=== PATIENT | female | born 1950 | race Caucasian/White ===

== ENCOUNTER → 2020-05-18 13:42 | Outpatient (BNVA) | payer MEDICARE, SELFPAY | PROVIDERS: PCP Hospitalist; Referring Provider Hospitalist; Visit Provider Internal Medicine Cardiovascular Disease | DX: I25.10 Atherosclerotic heart disease of native coronary artery without angina pectoris (principal); I48.0 Paroxysmal atrial fibrillation; Z79.01 Long term (current) use of anticoagulants; Z79.899 Other long term (current) drug therapy | CPT/HCPCS: 93005; 99212 ==

== ENCOUNTER → 2021-05-21 13:19 | Outpatient (BNVA) | payer MEDICARE, SELFPAY | PROVIDERS: PCP Hospitalist; Referring Provider Hospitalist; Visit Provider Internal Medicine Cardiovascular Disease | DX: I48.0 Paroxysmal atrial fibrillation (principal); I25.10 Atherosclerotic heart disease of native coronary artery without angina pectoris | CPT/HCPCS: 93005; 99212 ==

== ENCOUNTER → 2022-05-21 12:16 | Outpatient (BNVA) | payer MEDICARE, SELFPAY | PROVIDERS: PCP Nurse Practitioner Family; Referring Provider Nurse Practitioner Family; Visit Provider Internal Medicine Cardiovascular Disease | DX: I48.0 Paroxysmal atrial fibrillation (principal); I25.10 Atherosclerotic heart disease of native coronary artery without angina pectoris; R00.1 Bradycardia, unspecified; Z79.01 Long term (current) use of anticoagulants; Z79.899 Other long term (current) drug therapy | CPT/HCPCS: 93005; 99212 ==

== ENCOUNTER → 2022-06-11 10:26 | Outpatient (REF) | payer MEDICARE, SELFPAY ==
--- NOTE | 2022-06-11 10:30 | HM_ITS ---
* Total monitoring time 3 days. * Underlying rhythm is sinus. Average ventricular rate 54/Min. Range 40 to 87/Min. About 74% the time, rate < 60/Min. * Occasional PVCs with minimal burden. Three short runs of NSVT noted. Longest 11 beats. Monomorphic. Cannot definitively exclude artifact. * Occasional PACs with a burden of less than 1%. Short runs noted. Longest 28 beats. * No significant pauses or AV blocks. * No patient diary or marker events. MTDD
== END ==
LOC: HO.CARD 10:26
PROVIDERS: PCP Nurse Practitioner Family; Visit Provider Internal Medicine Cardiovascular Disease
DX: R00.1 Bradycardia, unspecified (principal)
CPT/HCPCS: 93242

== ENCOUNTER → 2022-08-13 13:58 | Outpatient (BNVA) | payer MEDICARE, SELFPAY | PROVIDERS: PCP Nurse Practitioner Family; Referring Provider Nurse Practitioner Family; Visit Provider Nurse Practitioner Family | DX: I48.0 Paroxysmal atrial fibrillation (principal); R00.1 Bradycardia, unspecified; I25.10 Atherosclerotic heart disease of native coronary artery without angina pectoris; I10 Essential (primary) hypertension; E66.01 Morbid (severe) obesity due to excess calories; Z68.39 Body mass index [BMI] 39.0-39.9, adult; Z79.01 Long term (current) use of anticoagulants; Z79.899 Other long term (current) drug therapy | CPT/HCPCS: 93005; 99212 ==

== ENCOUNTER → 2022-12-24 10:19 | Outpatient (BNVA) | payer MEDICARE, SELFPAY | PROVIDERS: PCP Nurse Practitioner Family; Referring Provider Nurse Practitioner Family; Visit Provider Internal Medicine Cardiovascular Disease | DX: I48.0 Paroxysmal atrial fibrillation (principal); I25.10 Atherosclerotic heart disease of native coronary artery without angina pectoris; R00.1 Bradycardia, unspecified; Z79.01 Long term (current) use of anticoagulants; Z79.899 Other long term (current) drug therapy | CPT/HCPCS: 99212 ==

== ENCOUNTER → 2023-12-02 12:40 | Outpatient (REF) | payer MEDICARE, SELFPAY ==
--- NOTE | 2023-12-02 12:44 | HM_ITS ---
* Total monitoring time 5 days. * Underlying rhythm is sinus with an average rate of 54/Min. About 75% the time, rate less than 60/Min. * Occasional supraventricular ectopy. * Occasional ventricular ectopy with a burden of 1%. Rare couplets, evidence of bigeminy, trigeminy. * Tiredness, fatigue, shortness of breath in patient diary associated with sinus rhythm/supraventricular, ventricular ectopy. MTDD
--- NOTE | 2023-12-02 12:44 | CA_ITS ---
Transthoracic Echocardiogram Patient (Last, First, Middle): Ayse Corona M Gender: Female Date of : 1950 Age: 73 Procedure Date: 12/02/2023 Procedure Type: Transthoracic Echocardiogram Location: OP Height: 149.86 cm Weight: 91.63 kg BSA: 1.85 m2 Heart Rate: 46 bpm BP: 112 / 68 mmHg Assembler Flexible Leads: SB Referring MD: Leoncio Carpio MD Box Bender: Leoncio Carpio MD Symptoms: I48.0 - Paroxysmal atrial fibrillation Study Quality: Adequate ECG Rhythm: Bradycardia Conclusions: - 1. Normal LV ejection fraction of 60-65% with grade 2 diastolic dysfunction 2. Early mild aortic stenosis 3. Normal RV systolic pressure 4. No gross pericardial effusion Findings Left Ventricle Normal left ventricular size, thickness, and systolic function. The visually estimated ejection fraction is between 60-65%. Spectral Doppler is indicative of a pseudonormal filling pattern. E/E prime ratio is >15, consistent with elevated filling pressures. Evidence suggests grade II (moderate) diastolic dysfunction. Wall Motion Rest Echo Findings The basal inferoseptal segment is hypokinetic. Right Ventricle Normal right ventricular cavity size and systolic function. Atria Both atria are normal in size. There is no evidence of interatrial shunt. Aortic Valve There is mild calcification of the aortic valve. There is mild thickening of the aortic valve. There is mild aortic valve stenosis. The peak aortic gradient is 10 mmHg.The mean gradient is 6 mmHg. The aortic valve area is 1.63 cm2. There is no aortic valve regurgitation. Mitral Valve There is mild anterior and posterior mitral leaflet thickening. There is mild mitral annular calcification. There is mild mitral valve regurgitation. There is no mitral valve stenosis. Pulmonic Valve The pulmonic valve is likely normal. Tricuspid Valve Normal tricuspid valve structure. There is trace tricuspid valve regurgitation. The right ventricular systolic pressure is normal. The right ventricular systolic pressure is 21 mmHg. Normal right atrial pressure. There is no evidence of pulmonary hypertension. Great Vessels All visible segments of the aorta are normal in size. The pulmonary artery was not well visualized. There is no dilatation of the ascending aorta measuring 3.30 cm. Small plaque is seen in the ascending aorta. Venous The inferior vena cava is normal in size and collapses greater than 50% with inspiration. Pericardium/Pleural There is no evidence of pericardial effusion. Measurements M-Mode Liner Measurements Normals - Women/Men RVIDd: 2.84 0.9-2.6 cm 2D Linear Measurements IVSd: 0.52 0.6-0.9/0.6-1.0 cm LVIDd: 5.20 3.9-5.3/4.2-5.9 cm LVIDd Index: 2.81 2.4-3.2/2.2-3.1 cm/m2 LVIDs: 3.01 2.0-3.6 cm LVPWd: 0.70 0.7-1.1 cm Ao Root: 3.00 2.1-3.5 cm LA Diam: 3.20 2.7-3.8/3.0-4.0 cm LAIDs Index: 1.73 1.5-2.3 cm/m2 LV Mass: 128.70 67-162/88-224 g LV Mass Index: 69.57 43-95/49-115 g/m2 LVOT Diam: 1.80 3.0+(-)1.3 cm 2D Volumes LA ESV A/L: 23.60 22-52/18-58 ML/M2 RA ESV A/L: 12.90 19-21 ML/M2 2D Systolic Function EF 4C: 67.50 >55% EF 2C: 61.80 >55% EF BiP: 64.10 >55% Mitral Valve MV Pk Sloan: 1.00 MV Pk Grad: 4.00 MV Pk E: 1.03 MV PK A: 0.75 MV Decel Time: 238.00 E/A: 1.40 E'Lateral: 6.53 E'Medial: 5.66 E/E' Med: 18.20 E/E' Lat: 15.80 PHT: 70.00 MVA PHT: 3.14 Decel [place]: 4.35 Aortic Valve AoV Pk Sloan: 1.61 AoV Mn Sloan: 1.13 AoV VTI: 0.39 AoV Pk Grad: 10.00 Aov Mn Grad: 6.00 MIKE Cont.VTI: 1.63 MIKE: 1.70 LVOT LVOT Pk Sloan: 0.96 LVOT Mn Sloan: 0.62 LVOT VTI: 0.25 LVOT Pk Grad: 4.00 LVOT Mn Grad: 2.00 LVOT Diam: 1.80 LVOT Area: 2.54 Diastolic Function MV Pk E: 1.03 MV Pk A: 0.75 E/A: 1.40 E'Medial: 5.66 E/E' Med: 18.20 E' Laterial: 6.53 E/E' Lat: 15.80 Right Ventricle TAPSE (mm): 22.30 TVS' Sloan: 9.14 Tricuspid Valve TR Pk Sloan: 2.10 TR Pk Grad: 18.00 RA Press: 3.00 RVSP: 21.00 Great Vessels Aorta Ao Root-2D: 3.00 2.0-3.7 cm Sinus of Valsalva: 3.00 2.0-3.5 cm Ao Asc: 3.30 2.1-3.4 cm Pulmonary Veins Pulm Vein Pk S Sloan: 0.49 Pulm Vein Pk D Sloan: 0.50 Pulm Vein S/D 1.00 Pulmonary Valve PV Pk Sloan: 0.99 Peak PV Grad: 4.00 Updated in Other Vendor System with Status of Final Leoncio Carpio MD electronically signed on 12/03/2023 3:15:19 PM with status of Final
== END ==
LOC: HO.CARD 12:40
PROVIDERS: PCP Nurse Practitioner Family; Visit Provider Internal Medicine Cardiovascular Disease
DX: R00.1 Bradycardia, unspecified (principal); I48.0 Paroxysmal atrial fibrillation
CPT/HCPCS: 93242; 93306

== ENCOUNTER → 2023-12-02 12:44 | Outpatient (BNV) | payer MEDICARE, SELFPAY | PROVIDERS: PCP Nurse Practitioner Family; Visit Provider Internal Medicine Cardiovascular Disease | DX: I47.10 Supraventricular tachycardia, unspecified (principal) | CPT/HCPCS: 93244; 93306 ==

== ENCOUNTER 2024-02-17 14:33 | Outpatient (AMB) | payer MEDICARE, SELFPAY ==
--- NOTE | 2024-02-17 15:06 | MHC.OFFVIS ---
Vital Signs 02/17/24 15:07 Height 5 ft Weight 203 lb 11.314 oz BMI 39.8 BP 110/60 Blood Pressure Location Lt brachial Position Sitting Pulse 45 L Pulse Source Monitor Intake Visit Reasons: 1 yr f/up Intake Note: 1 yr f/up w ekg Life Consultant Required: No Accompanied by: Significant Other Allergies amoxicillin [From AUGMENTIN] Allergy (Unknown, Verified 08/13/22 14:34) HIVES Medication List - Last Reconciled 02/17/24 by Leoncio Carpio MD atorvastatin 80 mg PO DAILY cholecalciferol (vitamin D3) 50 mcg PO DAILY hydrochlorothiazide 25 mg PO DAILY levothyroxine 75 mcg PO DAILY metoprolol succinate ER 25 mg PO DAILY rivaroxaban (Xarelto) 20 mg PO DAILY HPI Comments Details: Ayes comes for follow-up, accompanied by her brother. She continues to have no cardiac symptoms. No prolonged irregular heartbeat or lightheadedness or syncope. She says she gets sometimes dizzy when she gets up suddenly but otherwise this passes. She denies any symptoms of significant fatigue although she says she has poor sleep pattern and does not sleep at night and feels tired when she wakes up in the morning. No exertional chest pain. No orthopnea, PND, leg edema. Takes all her medications including Xarelto. Getting a blood work done through a PCP, do not have a copy of the same. Will obtain the same. Recent Holter monitor shows frequent sinus bradycardia without any significant pauses. Echocardiogram shows normal LV ejection fraction with grade 2 diastolic dysfunction with early aortic stenosis. [facility] Medical History Paroxysmal atrial fibrillation CAD (coronary artery disease) HTN (hypertension) Morbid obesity Surgical History Hx of knee surgery Hx of thyroidectomy Hx of hysterectomy Hx of cardiac cath Family History Father No problems noted. Mother No problems noted. Social History Alcohol intake: current Alcohol intake frequency: holidays/special occasions only Patient Tobacco Use Status: Never used Tobacco Review of Systems Const Denies chills, Denies fatigue, Denies fever(s), Denies frequent falls, Denies weakness, Denies weight gain and Denies weight loss ENT Denies dizziness Card Denies chest pain, Denies leg edema, Denies lightheadedness, Denies palpitations, Denies dyspnea and Denies dyspnea on exertion Resp Denies cough, Denies dyspnea and Denies dyspnea on exertion GI Denies hematochezia Musc Denies abnormal gait, Denies muscle weakness, Denies numbness, Denies radiating pain into limb and Denies tingling Neuro Denies abnormal gait, Denies dizziness, Denies frequent falls, Denies numbness, Denies tingling and Denies weakness Endo Denies fatigue and Denies palpitations Physical Exam Vital Signs: Last Vital Signs Pulse 45 L 02/17/24 15:07 BP 110/60 02/17/24 15:07 BMI result Body Mass Index 39.8 Const General: cooperative, healthy appearing, comfortable and no acute distress Orientation/consciousness: patient oriented x3 Neck Neck: Yes normal visual inspection and Yes no JVD Resp Effort & Inspection: normal respiratory effort Auscultation: clear to auscultation bilaterally, no crackles, no rales, no rhonchi and no wheezes Cardio Jugular venous distension: no JVD Rate: regular rate Rhythm: regular rhythm Heart sounds: S1 normal heart sound present, S2 normal heart sound present, no gallops, no murmurs and no rubs Peripheral pulses: Peripheral pulses 2+ throughout GI Inspection: Yes normal to inspection Neuro General: patient oriented x3 Extrem General: Yes normal to inspection Psych Appearance: grossly normal Mental Status: mental status grossly normal Speech and movement: Normal speech and movement present Office Procedures EKG Details: EKG shows sinus bradycardia with sinus arrhythmia with isolated PVC [id number], Complete Assessment & Plan Assessment & Plan (1) CAD (coronary artery disease): Comment: nonobstructive by cardiac catheterization Code(s): I25.10 - Atherosclerotic heart disease of [place] coronary artery without angina pectoris Category: Medical Plan: CAD which is nonobstructive and no current symptoms. Continue aggressive risk factor modification. Currently on Xarelto and should continue that and avoid aspirin therapy to reduce bleeding risk. Continue high-intensity statin therapy. Target goal LDL less than 70 mg/dL. Blood pressure is well optimized. Continue current therapy. (2) Paroxysmal atrial fibrillation: Code(s): I48.0 - Paroxysmal atrial fibrillation Category: Medical Plan: Paroxysmal atrial fibrillation without any overt recurrence at this point time. Avoidance of stimulants was discussed. Stress mitigation strategies was discussed. Continue aggressive blood pressure control. Continue participate in aggressive weight loss program. Metoprolol will be continued although toes reduced, see below. Continue Xarelto 20 mg daily. Semi annual renal function test and annual CBC should be pursued. (3) Sinus bradycardia: Code(s): R00.1 - Bradycardia, unspecified Category: Medical Plan: Sinus bradycardia which is suggestive of underlying sinoatrial robinson dysfunction. At this point time no pacing therapy is recommended patient has no obvious symptoms. Her overall fatigue seems to be due to poor sleep. Improve this and she continues to have symptoms fatigue may consider stress testing to evaluate for chronotropic competence. Will reduce metoprolol to 12.5 mg daily. Avoid other rate lowering medications. Will follow up in the clinic in 1 year's time, sooner p.r.n.. Thank you for allowing me to partake in her care Medications: Changed From metoprolol succinate ER 25 mg PO DAILY 30 tabs 7RF To metoprolol succinate ER 12.5 mg (1/2 x 25 mg) PO DAILY 30 tabs 7RF Coding Level of Care Code Est Pt Level 4 (46007) Diagnoses CAD (coronary artery disease) I25.10 Paroxysmal atrial fibrillation I48.0 Sinus bradycardia R00.1 CPT Codes EKG - CPT: 23374-[id number], Complete ([id number])
[2024-02-17 15:07] VITALS: BP 110/60; PULSE 45; BMI 39.8
== END 2024-02-17 15:28 | disposition home or self-care (01) ==
PROVIDERS: PCP Nurse Practitioner Family; Visit Provider Internal Medicine Cardiovascular Disease
DX: I25.10 Atherosclerotic heart disease of native coronary artery without angina pectoris (principal); I48.0 Paroxysmal atrial fibrillation; R00.1 Bradycardia, unspecified
CPT/HCPCS: 93010; 99214

== ENCOUNTER → 2024-02-17 14:33 | Outpatient (BNVA) | payer MEDICARE, SELFPAY | PROVIDERS: PCP Nurse Practitioner Family; Visit Provider Internal Medicine Cardiovascular Disease | DX: I25.10 Atherosclerotic heart disease of native coronary artery without angina pectoris (principal); I48.0 Paroxysmal atrial fibrillation; R00.1 Bradycardia, unspecified | CPT/HCPCS: 93005; 99212 ==

== ENCOUNTER 2024-03-30 10:00 | Outpatient (AMB) | payer MEDICARE, SELFPAY ==
[2024-03-30 10:11] VITALS: BMI 39.6
--- NOTE | 2024-03-30 10:11 | MHC.OFFVIS ---
Vital Signs 03/30/24 10:11 Height 5 ft Weight 203 lb BMI 39.6 Intake Visit Reasons: OV- right shoulder RTC impingement Intake Note: Ayse is a 74 year old female who presents with complaints of progressively worsening right shoulder pain. The patient states that she aggravated her shoulder several months ago while pulling weeds in her garden. She reports difficulty lifting her right hand above shoulder height. She has tried Tylenol, anti-inflammatory medicines and tramadol which gave her minimal relief. The patient has difficulty sleeping because of her pain. She wishes to hold off on surgery if at all possible. Allergies amoxicillin [From AUGMENTIN] Allergy (Unknown, Verified 03/30/24 10:11) HIVES Medication List - Last Reconciled 03/30/24 by Bhaskar Castro MD atorvastatin 80 mg PO DAILY cholecalciferol (vitamin D3) 50 mcg PO DAILY hydrochlorothiazide 25 mg PO DAILY levothyroxine 75 mcg PO DAILY metoprolol succinate ER 12.5 mg (1/2 x 25 mg) PO DAILY rivaroxaban (Xarelto) 20 mg PO DAILY PFSH Medical History Paroxysmal atrial fibrillation CAD (coronary artery disease) HTN (hypertension) Morbid obesity Surgical History Hx of knee surgery Hx of thyroidectomy Hx of hysterectomy Hx of cardiac cath Family History Father No problems noted. Mother No problems noted. Social History Alcohol intake: current Alcohol intake frequency: holidays/special occasions only Patient Tobacco Use Status: Never used Tobacco Physical Exam Vital Signs: BMI result Body Mass Index 39.6 Const Other: Well-nourished well-developed very friendly female awake alert and oriented x3 in no acute distress Extrem Other: Bilateral upper extremity examination shows good capillary refill, no skin lesions noted, normal sensation light touch Right shoulder examination shows decreased range of motion when compared to her left shoulder, 3/5 strength with supraspinatus testing, positive impingement signs, no instability Office Procedures Joint Injection/Aspiration Joint Injection/Aspiration Primary Site: right shoulder Prep: site was prepped using aseptic technique Injected: 40 mg of, DepoMedrol and 1% plain lidocaine Procedure: The patient tolerated the procedure well Coding 52007 - Large joint Procedure code (CPT) selection complete Results Reviewed Results Reviewed: X-rays of the patient's right shoulder show severe acromioclavicular joint narrowing, a type 3 acromion, mild glenohumeral joint degenerative changes, no acute bony abnormalities Assessment & Plan Assessment & Plan (1) Right shoulder pain: Code(s): M25.511 - Pain in right shoulder Category: Medical Plan Ms. Corona presents with right shoulder pain and weakness due to impingement syndrome and possible rotator cuff tearing. I had a lengthy discussion with the patient regarding the treatment options. The risks and benefits of a right shoulder cortisone injection were discussed at length with the patient. The patient wished to proceed. She tolerated the injection well. She will continue with her home stretching program. She will contact me prior to her follow-up appointment in 3 months should any questions or concerns arise. Feel free to call me at any time should questions regarding her orthopedic management arise. I spent 20 minutes in reviewing the patient's records and imaging studies, seeing the patient and documenting in the medical record. Orders: Orders XR shoulder RT min 2V Today M25.511 - Pain in right shoulder AMB Joint Injection/Aspiration Today M25.511 - Pain in right shoulder Coding Level of Care Code New Pt Level 3 (15920) Complex EM visit Add On G2211 Diagnoses Right shoulder pain M25.511 CPT Codes Coding - 95803 Large joint: 08709 - Large joint ([id number])
== END 2024-03-30 10:38 | disposition home or self-care (01) ==
PROVIDERS: PCP Nurse Practitioner Family; Visit Provider Orthopaedic Surgery
DX: M25.511 Pain in right shoulder (principal)
CPT/HCPCS: 20610; 99203

== ENCOUNTER 2024-03-30 10:00 | Outpatient (REF) | payer MEDICARE, SELFPAY ==
--- NOTE | ~2024-03-30 | XR_ITS ---
EXAMINATION: XR SHOULDER, RIGHT CLINICAL INFORMATION: Pain in the right shoulder COMPARISON: None available. TECHNIQUE: AP external rotation, Grashey, scapular Y, and axillary views of the right shoulder. FINDINGS: Moderate to severe hypertrophic osteoarthritis of the acromioclavicular joint. Prominent subacromial spur. There is an ossification lateral to the acromion perhaps related to old deltoid/soft tissue trauma. Glenohumeral joint: Mild osteoarthritis. There is a calcification in the subacromial space Surrounding bone and soft tissues are unremarkable. XR/XR shoulder RT min 2V IMPRESSION: 1. Advanced osteoarthritis of the acromioclavicular joint with subacromial spur. 2. Calcification in the subacromial space compatible with calcific tendinosis or calcific tendinitis. 3. Mild glenohumeral joint arthrosis. Electronically signed by: Abad Jon MD 04/05/2024 03:13 PM EDT
== END 2024-03-30 10:01 | disposition home or self-care (01) ==
LOC: HO.HOSX 10:00
PROVIDERS: PCP Nurse Practitioner Family; Visit Provider Orthopaedic Surgery
DX: M25.511 Pain in right shoulder (principal); M75.41 Impingement syndrome of right shoulder
CPT/HCPCS: 20610; 73030; 99202; J1010

== ENCOUNTER 2024-07-01 10:11 | Outpatient (AMB) | payer MEDICARE, SELFPAY ==
--- NOTE | 2024-07-01 10:15 | A.OFFVIS_ITS ---
Intake Visit Reasons: Right shoulder pain Intake Note: Ayse is a 74 year old female who presents with complaints of progressively worsening right shoulder pain. She describes her pain as sharp in nature. Her pain has gotten somewhat worse over the last few months. She has had cortisone injections in the past which gave her fairly good relief. She has done physical therapy exercises which aggravated her pain. She has also tried Tylenol and anti-inflammatory medicines which gave her minimal relief. She wishes to hold off on surgery if at all possible. Allergies amoxicillin [From AUGMENTIN] Allergy (Unknown, Verified 07/01/24 10:20) HIVES Medication List - Last Reconciled 07/01/24 by Bhaskar Castro MD atorvastatin 80 mg PO DAILY cholecalciferol (vitamin D3) 50 mcg PO DAILY hydrochlorothiazide 25 mg PO DAILY levetiracetam 250 mg PO DAILY levothyroxine 75 mcg PO DAILY metoprolol succinate ER 12.5 mg (1/2 x 25 mg) PO DAILY rivaroxaban (Xarelto) 20 mg PO DAILY [facility] Medical History Paroxysmal atrial fibrillation CAD (coronary artery disease) HTN (hypertension) Morbid obesity Surgical History Hx of knee surgery Hx of thyroidectomy Hx of hysterectomy Hx of cardiac cath Family History Father No problems noted. Mother No problems noted. Social History Alcohol intake: current Alcohol intake frequency: holidays/special occasions only Patient Tobacco Use Status: Never used Tobacco Physical Exam Const Other: Well-nourished well-developed very friendly female awake alert and oriented x3 in no acute distress Extrem Other: Bilateral upper extremity examination shows good capillary refill, no skin lesions noted, normal sensation light touch Right shoulder examination shows slightly decreased range of motion when compared to her left shoulder, 4/5 strength with supraspinatus testing, positive impingement signs, no instability Office Procedures AMB Joint Injection/Aspiration Joint Injection/Aspiration Primary Site: right shoulder Prep: site was prepped using aseptic technique Injected: 40 mg of, DepoMedrol and 1% plain lidocaine Procedure: The patient tolerated the procedure well Coding 83645 - Large joint Procedure code (CPT) selection complete Assessment & Plan Assessment & Plan (1) Right shoulder pain: Code(s): M25.511 - Pain in right shoulder Category: Medical Plan Ayse presents with right shoulder pain due to impingement syndrome and possible rotator cuff tearing. The risks and benefits of a right shoulder cortisone injection were discussed at length with the patient. The patient wished to proceed. She tolerated the injection well. She will continue with her [id number] exercises to prevent stiffness. She will contact me prior to her follow-up appointment in 3 months should any questions or concerns arise. Feel free to call me at any time should questions regarding her orthopedic management arise. I spent 22 minutes in reviewing the patient's records and imaging studies, seeing the patient and documenting in the medical record. Orders: Orders AMB Joint Injection/Aspiration Today M25.511 - Pain in right shoulder Coding Level of Care Code Est Pt Level 3 (77979) Complex EM visit Add On G2211 Diagnoses Right shoulder pain M25.511 CPT Codes Coding - 21525 Large joint: 76545 - Large joint ([id number])
--- OUTSIDE RECORDS SUMMARY | 2024-07-01 10:27 | XMS_ITS | Patient Health Record ---
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 Name Role Phone Darius Duran MD Primary Care Provider Ronda Morel Unavailable [phone] Allergies Allergen (clinical drug ingredient) Drug/Non Drug Allergy documented on EMR Reaction Allergy Type Onset Date Status amoxicillin / clavulanate Augmentin Rapid Heart Rate Drug Allergy Active lisinopril Lisinopril Cough Drug Allergy Activ e Reason For Referral No Information Medications Medication SIG (Take, Route, Frequency, Duration) Notes Start Date End Date Status dexAMETHasone Not-Ta levon Propafenone HCl ER 225 MG Orally twice a day Unknown Ketorolac Tromethamine 0.5 % 1 drop into affected eye as needed Ophthalmic Four times a day Not-Taking Ciclopirox Olamine 0.77 % 1 application to affected area Externally Twice a day for 30 days Unknown Vitamin D2 Active Vitamin D3 125 MCG (5000 UT) as directed Orally Not-Taking Xarelto 20 MG 1 tablet with food Orally Once a day for 30 day(s) Active Levothyroxine Sodium 75 MCG 1 tablet in the morning on an empty stomach Orally Once a day for 30 day(s) Active Warfarin Sodium 5 MG Orally Not-Taking levETIRAcetam 250 MG as directed Orally once a day Active Vitamin D3 Not-Takin g Sinus & Allergy PRN Not- Taking Levoxyl 75 MCG 1 tablet in the morning on an empty stomach Orally Once a day for 30 day(s) Unknown Eliquis 5 MG as directed Orally Not-Taking Aspirin 81 MG Orally Unknow n Latanoprost 0.005 % 1 drop into affected eye in the evening Ophthalmic Once a day Not-Taking Metoprolol Tartrate 25 MG 1 tablet with food Orally Twice a day for 30 day(s) Active Albuterol Sulfate HFA 108 (90 Base) MCG/ACT 1 puff as needed Inhalation every 4 hrs Not-Taking hydroCHLOROthiazide 25 MG Orally Active Biotin Not-Taking Atorvastatin Calcium 80 MG 1 tablet Oral ly Once a day for 30 day(s) Active Ammonium Lactate 12 % 1 application to affected area Externally to feet Twice a day for 30 days Not-Taking Immunizations Vaccine Route Administration Date Status Comme nts COVID-19 Pfizer BioNTech Vaccine Unknown 10/28/2020 Administered First Dose: 10/28/20 Second Dose: 11/18/2020 Social History Tobacco Use: Social History Observation Description Date Details (start date - stop date) Never Smoker NA - NA Tobacco Use/Smoking Question Answer Notes Are you a: nonsmoker Additional Findings: Tobacco Non-User Current no n-smoker Alcohol Screen Question Answer Notes Did you have a drink contain ing alcohol in the past year? Yes How often did you have a dri nk containing alcohol in the past year? Monthly or less (1 point) Points 1 Interpretation Negative Tobacco use other than smoking: Question Answer Notes Are you an other tobacco user? No Problems Problem Type SNOMED Code ICD Code Onset Dates Problem Status W/U Status Risk Notes Problem Unspecified atherosclerosis of [place] arteries of extremities, bilateral legs (I70.203) Active confirmed Problem [id number] Atherosclerosi s of artery of both lower extremities (I70.203) Active confirmed Vital Signs Height 5ft in 05/18/2024 Weight 202 lbs 05/18/2024 BMI 39.45 kg/m2 05/18/2024 Encounters Encounter Location Date Provider Diagnosis [facility] [address] 08/08/2023 Ronda Perica Xerosis of skin L85. 3 ; Unspecified atherosclerosis of [place] arteries of extremities, bilateral legs I70.203 ; Tinea unguium B35.1 ; Pain in right toe(s) M79.674 and Pain in left toe(s) M79.675 [facility] [address] 11/19/2023 Ronda Perica Xerosis of skin L85. 3 ; Unspecified atherosclerosis of [place] arteries of extremities, bilateral legs I70.203 ; Tinea unguium B35.1 ; Pain in right toe(s) M79.674 and Pain in left toe(s) M79.[address] [address] 02/17/2024 Ronda Graf Unspecified atherosclerosis of [place] arteries of extremities, bilateral legs I70.203 ; Tinea unguium B35.1 ; Pain in right toe(s) M79.674 and Pain in left toe(s) M79.[address] [address] 05/18/2024 Ronda Shanksa Unspecified atherosclerosis of [place] arteries of extremities, bilateral legs I70.203 ; Tinea unguium B35.1 ; Pain in right toe(s) M79.674 and Pain in left toe(s) M79.675 Assessments Encounter Date Diagnosis (ICD Code) Assessment Notes Treatment Notes Treatment Clinical Notes Section Notes 08/08/2023 Xerosis of skin (ICD-10 - L85.3) 11/19/2023 Xerosis of skin (ICD-10 - L85.3) 02/17/2024 Tinea unguium (ICD-10 - B35.1) 02/17/2024 Unspecified atherosclerosis of [place] arteries of extremities, bilateral legs (ICD-10 - I70.203) 05/18/2024 Unspecified atherosclerosis of [place] arteries of extremities, bilateral legs (ICD-10 - I70.203) 11/19/2023 Unspecified atherosclerosis of [place] arteries of extremities, bilateral legs (ICD-10 - I70.203) 02/17/2024 Pain in right toe(s) (ICD-10 - M79.674) 05/18/2024 Tinea unguium (ICD-10 - B35.1) 08/08/2023 Unspecified atherosclerosis of [place] arteries of extremities, bilateral legs (ICD-10 - I70.203) 08/08/2023 Tinea unguium (ICD-10 - B35.1) 11/19/2023 Tinea unguium (ICD-10 - B35.1) 02/17/2024 Pain in left toe(s) (ICD-10 - M79.675) 05/18/2024 Pain in right toe(s) (ICD-10 - M79.674) 11/19/2023 Pain in right toe(s) (ICD-10 - M79.674) 05/18/2024 Pain in left toe(s) (ICD-10 - M79.675) 08/08/2023 Pain in right toe(s) (ICD-10 - M79.674) 08/08/2023 Pain in left toe(s) (ICD-10 - M79.675) 11/19/2023 Pain in left toe(s) (ICD-10 - M79.675) Plan Of Treatment Pending Test Test Name Order Date [id number] NAIL, 6 OR MORE 12/12/2017 [id number] NAIL, 6 OR MORE 03/06/2018 [id number] NAIL, 6 OR MORE 05/13/2018 [id number] SKIN LESIONS, OVER 4 12/13/19 18 [id number] SKIN LESIONS, OVER 4 05/13/20 18 [id number]-[id number] SKIN LESIONS, OVER 4 03/06/20 18 Insurance Providers Payer Name Payer Address Payer Phone Subscriber Number Group Number Insured Name Patient Relationship to Insured Coverage Start Date Coverage End Date [employer] [address] [facility] [place] [address] [id number] Ayse Young Self - patient is the insured Medical (General) History Medical History History ICD Code Back,Hip,and Knee pain Epilepsy Arthritis of Knee (right) chronic rhinitis Diverticulosis Reflux ( GERD) Glaucoma Hyperlipidemia Hypertension Hyperthyroidism Macular degeneration Sleep apnea Osteopenia Atrial fibrillation ([place]) Menopause Overactive bladder (OAB) Surgical History Surgery Date(Month/Year) left knee replacement 2010 thyroidectomy, complete 08/2014 colonoscopy 2013 sling, at bladder neck 10/24/2010 tonsillectomy cataract surgery 05/26/21, 06/09/21 Hospitalization History Reason Date(Month/Year) [facility]- Heart attack 01/2019 [facility] [place] and then after 2 day moved to [facility] te, Heart attack 01/2019 [facility] [place] [facility] - rectal bleeding/hemmoroid 9
--- OUTSIDE RECORDS SUMMARY | 2024-07-01 10:27 | XMS_ITS ---
Author Organization [facility] Guido micky [place] Address [address] [place] [address] Care Team Providers Care Soc Analyst Name Role Phone Darius Duran MD Primary Care Provider Ronda Morel Unavailable [phone] Allergies Allergen (clinical drug ingredient) Drug/Non Drug Allergy documented on EMR Reaction Allergy Type Onset Date Status amoxicillin / clavulanate Augmentin Rapid Heart Rate Drug Allergy Active lisinopril Lisinopril Cough Drug Allergy Activ e REASON FOR VISIT At Risk Footcare, Painful Nail(s) aggrevated by shoes and causing difficulty standing/walking Medications Medication SIG (Take, Route, Frequency, Duration) Notes Start Date End Date Status hydroCHLOROthiazide 25 MG Orally Active Atorvastatin Calcium 80 MG 1 tablet Oral ly Once a day for 30 day(s) Active levETIRAcetam 250 MG as directed Orally once a day Active Levothyroxine Sodium 75 MCG 1 tablet in the morning on an empty stomach Orally Once a day for 30 day(s) Active Sinus & Allergy PRN Not- Taking Metoprolol Tartrate 25 MG 1 tablet with food Orally Twice a day for 30 day(s) Active Ciclopirox Olamine 0.77 % 1 application to affected area Externally Twice a day for 30 days Unknown Propafenone HCl ER 225 MG Orally twice a day Unknown Xarelto 20 MG 1 tablet with food Orally Once a day for 30 day(s) Active Vitamin D2 Active Ammonium Lactate 12 % 1 application to affected area Externally to feet Twice a day for 30 days Not-Taking Vitamin D3 Not-Takin g Warfarin Sodium 5 MG Orally Not-Taking Aspirin 81 MG Orally Unknow n Levoxyl 75 MCG 1 tablet in the morning on an empty stomach Orally Once a day for 30 day(s) Unknown Biotin Not-Taking Albuterol Sulfate HFA 108 (90 Base) MCG/ACT 1 puff as needed Inhalation every 4 hrs Not-Taking Ketorolac Tromethamine 0.5 % 1 drop into affected eye as needed Ophthalmic Four times a day Not-Taking Latanoprost 0.005 % 1 drop into affected eye in the evening Ophthalmic Once a day Not-Taking Vitamin D3 125 MCG (5000 UT) as directed Orally Not-Taking Eliquis 5 MG as directed Orally Not-Taking dexAMETHasone Not-Ta levon Social History Tobacco Use: Social History Observation Description Date Details (start date - stop date) Never Smoker NA - NA Tobacco Use/Smoking Question Answer Notes Are you a: nonsmoker Additional Findings: Tobacco Non-User Current no n-smoker Tobacco use other than smoking: Question Answer Notes Are you an other tobacco user? No Vital Signs Height 5ft in 02/17/2024 Weight 202 lbs 02/17/2024 BMI 39.45 kg/m2 02/17/2024 Encounters Encounter Location Date Provider Diagnosis [facility] [address] [address] 02/17/2024 Ronda Graf Unspecified atherosclerosis of [place] arteries of extremities, bilateral legs I70.203 ; Tinea unguium B35.1 ; Pain in right toe(s) M79.674 and Pain in left toe(s) M79.675 Assessments Encounter Date Diagnosis (ICD Code) Assessment Notes Treatment Notes Treatment Clinical Notes Section Notes 02/17/2024 Unspecified atherosclerosis of [place] arteries of extremities, bilateral legs (ICD-10 - I70.203) 02/17/2024 Tinea unguium (ICD-10 - B35.1) 02/17/2024 Pain in right toe(s) (ICD-10 - M79.674) 02/17/2024 Pain in left toe(s) (ICD-10 - M79.675) Plan Of Treatment Next Appt Details Follow Up: 2 Months, Reason: Procedure Notes * Category Sub-Category Detail Notes Debride Nail 6-10 Nail debridement Nail debridem ent performed extensively to reduce/remove overall nail length and girth, subungual debris, and necrotic tissue, by manual and electrical means with use of a nail nipper and/or dremel, to more viable healthy nail plate or bed tissue 6-10. Silver nitrate used for any petechial bleeding as necessary. Patient chooses, no pharmaceutical tx ([id number]) Keratoma Treatment Parring or Cutting o f Benign Hyperkeratotic Lesion(s) 70820 ( >4 Lesions) - The Benign hyperkeratotic lesions, as described above were pared, and/or cut utilizing a sterile #15 blade, tissue nippers, and/or dremel, Q8 Progress Notes * Ayse MANDELDOB:1949 (73 yo F)Acc No.[id number]:02/17/2024 Progress Note Patient:?Ayse Mandel Provider:?Ronda Graf DPM :1950???Age:73 Y???Sex:Female D ate:02/17/2024 Address:[address] [place], [place] [id number] Pcp:Darius Duran MD Subjective: * Chief Complaints: * ???At Risk FootcarePainful N ail(s) aggrevated by shoes and causing difficulty standing/walking * HPI: ???At Risk footcare:?Pt States Last PCP Visit:?Date?05/14/2023 * ROS:?General/Constitutional:?Nausea?denies, denies.?Vomiting?denies, denies.?Hunger Thirst?denies, denies.?Loss appetite?denies, denies.?Chills?denies, denies.?Fatigue?denies, denies.?Fever?denies, denies.?Night Sweats denies, denies.?Unexplained weight loss?denies, denies.?Unexplained weight gain?denies, denies.?HEENTM:?Dentures?denies, denies.?Dizziness?denies, denies.?Glasses/contacts?denies, denies.?Retinopathy?denies, denies.?Blurred/double vision?denies, denies.?TMJ?denies, denies.?Discharge/drainage?denies, denies.?Implants?denies, denies.?Sore throat?denies, denies.?Dental implants?denies, denies.?Hard of hearing ?denies, denies.?Difficulty chewing/swallowing/speaking?denies, denies.?Nose bleeds?denies, denies.?Sore mouth?denies, denies.?Respiratory:?On Oxygen?denies, denies.?Pneumonia/pleurisy?denies, denies.?Bronchitis?denies, denies.?Emphysema?denies, denies.?Coughing?denies, denies.?Cough blood?denies, denies.?Shortness of breath?denies, denies.?Wheezing?denies, denies.?Cardiovascular:?Pacemaker?denies, denies.?MVP?denies, denies.?WPW?denies, denies.?CHF?denies, denies.?Heart attack?denies, denies.?Septal defect?denies, denies.?Rapid beat?denies, denies.?Chest pain ?denies, denies.?Atrial Fib.?denies, denies.?Murmur/Palpitations?denies, denies.?Gastrointestinal:?Hemorrhoids?denies, denies.?Stomach/Abdominal pain?denies, denies.?Dark blood stool?denies, denies.?Irritable bowel ?denies, denies.?Constipation?denies, denies.?Diarrhea?denies, denies.?Hematology:?Swelling?denies, denies.?Clots?denies, denies.?Varicose Veins?denies, denies.?Bruising?denies, denies.?Bleeding problem?denies, denies.?Genitourinary:?Blood urine?denies, denies.?Frequent/Painfu/urination/bladder control?denies, denies.?Kidney stones?denies, denies.?Infection (UTI)?denies, denies.?Nephropathy?denies, denies.?sex trans dis (STD)?denies, denies.?Prostate?denies, denies.?Musculoskeletal:?Hammertoes?denies, denies.?Bunions?denies, denies.?Back Pain?denies, denies.?Muscle Cramps/ Resting?denies, denies.?Muscle cramps / walking?denies, denies.?Generalized aches and pains?denies, denies.?Weakness?denies, denies.?Integ.:?Mandel?denies, denies.?Scars?denies, denies.?Corns/calluses?denies, denies.?Ingrown nails?denies, denies.?Painful nails?denies, denies.?Open Sores?denies, denies.?Rashes?denies, denies.?Neurologic:?Difficulty sleeping?denies, denies.?Brain disorder?denies, denies.?Numbness?denies, denies.?Balance trouble?denies, denies.?Confusion?denies, denies.?Fainting/blackouts?denies, denies.?Tingling?denies, denies.?Tremors?denies, denies.? * Medical History:? * Surgical History:?left knee replacement 2010thyroidectomy, complete 08/2014colonoscopy 2012sling, at bladder neck 10/24/2010tonsillectomy cataract surgery 05/26/21, 06/09/21 * Hospitalization/Major Diagno stic Procedure:[place] [place] [place] [facility], Heart attack 01/2019[facility] [place] Heart [place] 01/2019 * Family History:?Mother: dece ased 42 yrs, of Breast CA, diagnosed with Other malignant neoplasm of unspecified site.?Father: 93 yrs, osteoporosis, diagnosed with Diabetic - NIDDM, Other malignant neoplasm of unspecified site.?Maternal Grand Father: , diagnosed with Other malignant neoplasm of unspecified site.?Siblings: sister - foot problems.?Spouse: heart attack, poor circulation, diagnosed with Diabetic - NIDDM.?Children: 2 kids heart attack.? * Social History:?Tobacco Use:?Tobacco Use/Smoking?Are you a:?nonsmoker ?Additional Findings: Tobacco Non-User?Current non-smoker ?Tobacco use other than smoking?Are you an other tobacco user??No ???Miscellaneous:?no Caffeine, frequency: decaff coffee , 1-2 cups per day. ?Children: yes, 4. ?Exercise: yes, walking. ?Marital status: single, . ?Occupation: retired-didn't work. * Medications:?TakingVitamin D 2 Xarelto 20 MG Tablet 1 tablet with food Orally Once a dayMetoprolol Tartrate 25 MG Tablet 1 tablet with food Orally Twice a dayhydroCHLOROthiazide 25 MG Tablet Orally Atorvastatin Calcium 80 MG Tablet 1 tablet Orally Once a dayLevothyroxine Sodium 75 MCG Tablet 1 tablet in the morning on an empty stomach Orally Once a daylevETIRAcetam 250 MG Tablet as directed Orally once a dayTaking Vitamin D2 Taking Xarelto 20 MG Tablet 1 tablet with food Orally Once a dayTaking Metoprolol Tartrate 25 MG Tablet 1 tablet with food Orally Twice a dayTaking hydroCHLOROthiazide 25 MG Tablet Orally Taking Atorvastatin Calcium 80 MG Tablet 1 tablet Orally Once a dayTaking Levothyroxine Sodium 75 MCG Tablet 1 tablet in the morning on an empty stomach Orally Once a dayTaking levETIRAcetam 250 MG Tablet as directed Orally once a dayNot-Taking/PRNSinus & Allergy , Notes: PRNEliquis 5 MG Tablet as directed Orally dexAMETHasone Ketorolac Tromethamine 0.5 % Solution 1 drop into affected eye as needed Ophthalmic Four times a dayVitamin D3 125 MCG (5000 UT) Capsule as directed Orally Latanoprost 0.005 % Solution 1 drop into affected eye in the evening Ophthalmic Once a dayAlbuterol Sulfate HFA 108 (90 Base) MCG/ACT Aerosol Solution 1 puff as needed Inhalation every 4 hrsBiotin Ammonium Lactate 12 % Cream 1 application to affected area Externally to feet Twice a dayWarfarin Sodium 5 MG Tablet Orally Vitamin D3 Not-Taking/PRN Sinus & Allergy , Notes: PRNNot- Taking/PRN Eliquis 5 MG Tablet as directed Orally Not-Taking/PRN dexAMETHasone Not- Taking/PRN Ketorolac Tromethamine 0.5 % Solution 1 drop into affected eye as needed Ophthalmic Four times a dayNot-Taking/PRN Vitamin D3 125 MCG (5000 UT) Capsule as directed Orally Not-Taking/PRN Latanoprost 0.005 % Solution 1 drop into affected eye in the evening Ophthalmic Once a dayNot-Taking/PRN Albuterol Sulfate HFA 108 (90 Base) MCG/ACT Aerosol Solution 1 puff as needed Inhalation every 4 hrsNot-Taking/PRN Biotin Not-Taking/PRN Ammonium Lactate 12 % Cream 1 application to affected area Externally to feet Twice a dayNot-Taking/PRN Warfarin Sodium 5 MG Tablet Orally Not- Taking/PRN Vitamin D3 UnknownLevoxyl 75 MCG Tablet 1 tablet in the morning on an empty stomach Orally Once a dayAspirin 81 MG Tablet Delayed Release Orally Propafenone HCl ER 225 MG Capsule Extended Release 12 Hour Orally twice a dayCiclopirox Olamine 0.77 % Cream 1 application to affected area Externally Twice a dayMedication List reviewed and reconciled with the patientUnknown Levoxyl 75 MCG Tablet 1 tablet in the morning on an empty stomach Orally Once a dayUnknown Aspirin 81 MG Tablet Delayed Release Orally Unknown Propafenone HCl ER 225 MG Capsule Extended Release 12 Hour Orally twice a dayUnknown Ciclopirox Olamine 0.77 % Cream 1 application to affected area Externally Twice a dayMedication List reviewed and reconciled with the patient * Allergies:?Augmentin: Rapid Heart RateLisinopril: Coughyes[Allergies Verified] Objective: * Vitals:?Ht: 5ft, Wt:202, BMI :39.45, Shoe size: 6, Ht-cm: 152.4 cm, Wt-k.63 kg. * Examination: ???Dermatologic: ?SKIN FINDINGS:?Skin exam reveals Keratotic lesion(s) located at, TA, T5, SUB MTH (s), 1, B/L T3 T6 T7.?Nails: ?NAILS are:?Elongated, overgrown, dystrophic, lytic, greater than 3mm thick, discolored and friable with crumbly malodorous subungual debris, with pain on palpation , TA, T1, T4, T5, T6, T7, T9, T8.?Vascular: ?DP PULSES:?2/4, B/L.?PT PULSES:?0/4, B/L.?CAPILLARY FILL TIME:?4 secs. per digit.?SKIN TEMPERTURE GRADIENT OF THE LOWER EXTERMITIES:?decreased, cool to cold, proximal to distal, B/L.?HAIR GROWTH/TEXTURE/ELASTICITY/TURGOR:?decreased, B/L.?PIGMENTATION:?normal, B/L.?EDEMA:?1/4, B/L, Ankle(s), Leg(s).? Assessment: * Assessment: 1.?Tinea unguium - B35.1?2.? Unspecified atherosclerosis of [place] arteries of extremities, bilateral legs - I70.203 (Primary)?3.?Pain in right toe(s) - M79.674?4.?Pain in left toe(s) - M79.675? Plan: * Treatment: * Procedures:?Debride Nail 6-10:?Nail debridement?Nail debridement performed extensively to reduce/remove overall nail length and girth, subungual debris, and necrotic tissue, by manual and electrical means with use of a nail nipper and/or dremel, to more viable healthy nail plate or bed tissue 6-10. Silver nitrate used for any petechial bleeding as necessary. Patient chooses, no pharmaceutical tx ([id number]).?Keratoma Treatment:?Parring or Cutting of Benign Hyperkeratotic Lesion(s)?57993 ( >4 Lesions) - The Benign hyperkeratotic lesions, as described above were pared, and/or cut utilizing a sterile #15 blade, tissue nippers, and/or dremel, Q8.? * Procedure Codes:?64617 DEBRI DE NAIL, 6 OR MORE, Modifiers: XS 16748 TRIM SKIN LESIONS, OVER 4, Modifiers: XS , Q8 * Follow Up:?2 Months * Images: * Sign off status: Completed true * Provider:?Ronda Graf DPM Date:? Generated for Reese jones/Jadyng/eTransmitting on:?07/01/2024 10:26 AM EST History and Physical Notes * HPI (History of Present Illness) Category Sub-Category Detail Notes Category Not es At Risk footcare Pt States Last PCP Visit: Date: 3 Examination Category Sub-Category Detail Notes Category Not es Dermatologic SKIN FINDINGS: Skin exam reveal s Keratotic lesion(s) located at, TA, T5, SUB MTH (s), 1, B/L T3 T6 T7 Vascular DP PULSES (B): 2/4, B/L PT PULSES (B): 0/4, B/L CAPILLARY FILL TIME: 4 secs. per digit TEMPERTURE GRADIENT (C): decreased, cool to cold, proximal to distal, B/L TROPHIC CONDITION-TEXTURE/ELASTICITY/TURGOR/HAIR GROWTH (B): decreased, B/L EDEMA (C): 1/4, B/L, Ankle(s), Leg(s) PIGMENTATION: normal, B/L Nails NAILS are: Elongated, overg rown, dystrophic, lytic, greater than 3mm thick, discolored and friable with crumbly malodorous subungual debris, with pain on palpation , TA, T1, T4, T5, T6, T7, T9, T8
--- OUTSIDE RECORDS SUMMARY | 2024-07-01 10:27 | XMS_ITS ---
Author Organization [facility] Guido micky Brigido Address [address] [place] [address] Care Team Providers Care Plastics Scientist Name Role Phone Darius Duran MD Primary Care Provider Ronda Morel Unavailable [phone] Allergies Allergen (clinical drug ingredient) Drug/Non Drug Allergy documented on EMR Reaction Allergy Type Onset Date Status amoxicillin / clavulanate Augmentin Rapid Heart Rate Drug Allergy Active lisinopril Lisinopril Cough Drug Allergy Activ e REASON FOR VISIT At Risk Footcare, Painful Nail(s) aggrevated by shoes and causing difficulty standing/walking, Skinproblem(s) Medications Medication SIG (Take, Route, Frequency, Duration) Notes Start Date End Date Status Vitamin D3 125 MCG (5000 UT) as directed Orally Not-Taking Ketorolac Tromethamine 0.5 % 1 drop into affected eye as needed Ophthalmic Four times a day Not-Taking Albuterol Sulfate HFA 108 (90 Base) MCG/ACT 1 puff as needed Inhalation every 4 hrs Not-Taking Latanoprost 0.005 % 1 drop into affected eye in the evening Ophthalmic Once a day Not-Taking Biotin Not-Taking dexAMETHasone Not-Ta [place] Levothyroxine Sodium 75 MCG 1 tablet in the morning on an empty stomach Orally Once a day for 30 day(s) Active Atorvastatin Calcium 80 MG 1 tablet Oral ly Once a day for 30 day(s) Active Eliquis 5 MG as directed Orally Not-Taking levETIRAcetam 250 MG as directed Orally once a day Active Vitamin D2 Active Metoprolol Tartrate 25 MG 1 tablet with food Orally Twice a day for 30 day(s) Active Xarelto 20 MG 1 tablet with food Orally Once a day for 30 day(s) Active hydroCHLOROthiazide 25 MG Orally Active Sinus & Allergy PRN Not- Taking Ciclopirox Olamine 0.77 % 1 application to affected area Externally Twice a day for 30 days Unknown Propafenone HCl ER 225 MG Orally twice a day Unknown Vitamin D3 Not-Takin g Aspirin 81 MG Orally Unknow n Levoxyl 75 MCG 1 tablet in the morning on an empty stomach Orally Once a day for 30 day(s) Unknown Ammonium Lactate 12 % 1 application to affected area Externally to feet Twice a day for 30 days Not-Taking Warfarin Sodium 5 MG Orally Not-Taking Social History Tobacco Use: Social History Observation [...] user? No Vital Signs Height 5ft in 11/19/2023 Weight 202 lbs 11/19/2023 BMI 39.45 kg/m2 11/19/2023 Encounters Encounter Location Date Provider Diagnosis [facility] [address] [address] 11/19/2023 Ronda Graf Xerosis of skin L85. 3 ; Unspecified atherosclerosis of [place] arteries of extremities, bilateral legs I70.203 ; Tinea unguium B35.1 ; Pain in right toe(s) M79.674 and Pain in left toe(s) M79.675 Assessments Encounter Date Diagnosis (ICD Code) Assessment Notes Treatment Notes Treatment Clinical Notes Section Notes 11/19/2023 Xerosis of skin (ICD-10 - L85.3) 11/19/2023 Unspecified atherosclerosis of [place] sal[place] arteries of extremities, bilateral legs (ICD-10 - I70.203) 11/19/2023 Tinea unguium (ICD-10 - B35.1) 11/19/2023 Pain in right toe(s) (ICD-10 - M79.674) 11/19/2023 Pain in left toe(s) (ICD-10 - [...] as necessary. Patient chooses, no pharmaceutical tx (36547) Keratoma Treatment Parring or Cutting o f Benign Hyperkeratotic Lesion(s) 92943 ( >4 Lesions) - The Benign hyperkeratotic lesions, as described above were pared, and/or cut utilizing a sterile #15 blade, tissue nippers, and/or dremel, Q8 Progress Notes * Ayse MANDELDOB:1949 (73 yo F)Acc No.[id number]:11/19/2023 Progress Note Patient:?Ayse Mandel Provider:?Ronda Graf DPM :1950???Age:73 Y???Sex:Female D ate:11/19/2023 Address:[address] [place], [place] [id number] Pcp:Darius Duran MD Subjective: * Chief Complaints: * ???At Risk FootcarePainful N ail(s) aggrevated by shoes and causing difficulty standing/walkingSkin problem(s) * HPI: ???At Risk footcare:?Pt States Last PCP Visit:?Date?05/14/2023 ???Skin problems:?Nature:?dryness.?Location:?B/L .?Duration:?several months.?Course:?worse.? * ROS:?General/Constitutional:?Nausea?denies.?Vomiting?denies.?Hunger Thirst?denies.?Loss appetite?denies.?Chills?denies.?Fatigue?denies.?Fever?denies.?Night Sweats?denies.?Unexplained weight loss?denies.?Unexplained weight gain?denies.?HEENTM:?Dentures?denies.?Dizziness?denies.?Glasses/contacts?denies.?Retinopathy?de nies.?Blurred/double vision?denies.?TMJ?denies.?Discharge/drainage?denies.?Implants?denies.?Sore throat?denies.?Dental implants?denies.?Hard of hearing ?denies.?Difficulty chewing/swallowing/speaking?denies.?Nose bleeds?denies.?Sore mouth?denies.?Respiratory:?On Oxygen?denies.?Pneumonia/pleurisy?denies.?Bronchitis?denies.?Emphysema?denies.?C oughing?denies.?Cough blood?denies.?Shortness of breath?denies.?Wheezing?denies.?Cardiovascular:?Pacemaker?denies.?MVP?denies.?WPW?denies.?CHF?denies.?Heart attack?denies.?Septal defect?denies.?Rapid beat?denies.?Chest pain ?denies.?Atrial Fib.?denies.?Murmur/Palpitations?denies.?Gastrointestinal:?Hemorrhoids?denies.?Stomach/Abdominal pain?denies.?Dark blood stool?denies.?Irritable bowel ?denies.?Constipation?denies.?Diarrhea?denies.?Hematology:?Swelling?denies.?Clots?denies.?Varicose Veins?denies.?Bruising?denies.?Bleeding problem?denies.?Genitourinary:?Blood urine?denies.?Frequent/Painfu/urination/bladder control?denies.?Kidney stones?denies.?Infection (UTI)?denies.?Nephropathy?denies.?sex trans dis (STD)?denies.?Prostate?denies.?Musculoskeletal:?Hammertoes?denies.?Bunions?denies.?Back Pain?denies.?Muscle Cramps/ Resting?denies.?Muscle cramps / walking?denies.?Generalized aches and pains?denies.?Weakness?denies.?Integ.:?Mandel?denies.?Scars?denies.?Corns/calluses?denies.?Ingrown nails?denies.?Painful nails?denies.?Open Sores?denies.?Rashes?denies.?Neurologic:?Difficulty sleeping?denies.?Brain disorder?denies.?Numbness?denies.?Balance trouble?denies.?Confusion?denies.?Fainting/blackouts?denies.?Tingling?denies.?Tr emors?denies.? * Medical History:? * Surgical History:?left knee replacement 2011thyroidectomy, complete 08/2014colonoscopy 2012sling, at bladder neck 10/24/2010tonsillectomy cataract surgery 05/26/21, 06/09/21 * Hospitalization/Major Diagno stic Procedure:?[facility] [place] [facility] - rectal bleeding/hemmoroid 06/2018[facility] [place] and then after 2 day moved to [facility], Heart attack 01/2019[facility] [place] Heart attack 01/2019 * Family History:?Mother: dece [...] than smoking?Are you an other tobacco user??No ???Drugs/Alcohol:?Drugs?Have you used drugs other than those for medical reasons in the past 12 months??No ?Alcohol Screen?Did you have a drink containing alcohol in the past year??Yes ?How often did you have a drink containing alcohol in the past year??Monthly or less (1 point) ?Points?1 ?Interpretation?Negative ???Miscellaneous:?no Caffeine, frequency: decaff coffee , 1-2 [...] MTH (s), 1, B/L T3 T6 T7 , Skin shows sign(s) of, dryness, scaling, in a stocking fashion, no fissure(s) present, B/L.?Nails: ?NAILS are:?Elongated, overgrown, dystrophic, lytic, greater than 3mm thick, discolored and friable with crumbly malodorous subungual debris, with pain on palpation , TA, T1, T4, T5, T6, T7, T9, T8.?Vascular: ?DP PULSES:?2/4, B/L.?PT PULSES:?0/4, B/L.?CAPILLARY FILL TIME:?4 secs. per digit.?SKIN TEMPERTURE GRADIENT OF THE LOWER EXTERMITIES:?decreased, cool to cold, proximal to distal, B/L.?HAIR GROWTH/TEXTURE/ELASTICITY/TURGOR:?decreased, B/L.?PIGMENTATION:?normal, B/L.?EDEMA:?1/4, B/L, Ankle(s), Leg(s).? Assessment: * Assessment: 1.?Xerosis of skin - L85.3 ( Primary), Acute problem, Uncomplicated (3)?2.?Unspecified atherosclerosis of [place] sal[place] arteries of extremities, bilateral legs - I70.203?3.?Tinea unguium - B35.1?4.?Pain in right toe(s) - M79.674?5.?Pain in left toe(s) - M79.675? Plan: * [...] as necessary. Patient chooses, no pharmaceutical tx (40418).?Keratoma Treatment:?Parring or Cutting of Benign Hyperkeratotic Lesion(s)?63968 ( >4 Lesions) - The Benign hyperkeratotic lesions, as described above were pared, and/or cut utilizing a sterile #15 blade, tissue nippers, and/or dremel, Q8.? * Procedure Codes:?59333 DEBRI DE NAIL, 6 OR MORE, Modifiers: XS 39003 TRIM SKIN LESIONS, OVER 4, Modifiers: XS , Q8 * Preventive Medicine:? ??Counseling:?Discussion:?-13: Office or other outpatient visit for the evaluation and management of an established patient, which required a medically appropriate history and/or examination and LOW level of DECISION MAKING for: 1 STABLE ACUTE UNCOMPLICATED PROBLEM, 2 OR MORE MINOR PROBLEMS, OR 1 STABLE CHRONIC PROBLEM, THAT POSE(S) A LOW RISK FOR MORBIDITY/MORTALITY. The visit on the day of the encounter encompassed interpreting the data and educating the patient as to the nature of their condition, treatment options available according to their individual PMH, meds, allergies, and overall health/living conditions, as well as any potential risks or complications that may occur from a failure to adhere to, and participate in, the recommended course of therapy. The discussion included a complete verbal, and/or written explanation of the examination results, any x-rays taken, the proposed diagnosis, and outline of the treatment plan. A schedule for future care needs was also explained. The patient verbalized an understanding of the instructions at this time and agreed to be an active participant in their treatment. If the patient should think of any questions or concerns after the visit, I have encouraged the patient to call the office.?Xerosis:?Given recent successful results to treatment, The patient is to cont the cream as directed.? * Follow Up:?2 Months * Images: * Sign off status: Completed true * Provider:?Ronda Graf DPM Date:?05/ Generated for Reese jones/Collette/Gregoriaitting on:?07/01/2024 10:27 AM EST History and Physical Notes * HPI (History of Present Illness) Category Sub-Category Detail Notes Category Not es Skin problems Nature: dryness Location: B/L Duration: several months Course: worse At Risk footcare Pt States Last PCP Visit: Date: 3 Examination Category Sub-Category Detail Notes Category Not es Dermatologic SKIN FINDINGS: Skin exam reveal s Keratotic lesion(s) located at, TA, T5, SUB MTH (s), 1, B/L T3 T6 T7 , Skin shows sign(s) of, dryness, scaling, in a stocking fashion, no fissure(s) present, B/L Vascular DP PULSES (B): 2/4, B/L PT [...]
== END 2024-07-01 10:42 | disposition home or self-care (01) ==
PROVIDERS: PCP Nurse Practitioner Family; Visit Provider Orthopaedic Surgery
DX: M25.511 Pain in right shoulder (principal)
CPT/HCPCS: 20610; 99213

== ENCOUNTER → 2024-07-01 10:11 | Outpatient (BNVA) | payer MEDICARE, SELFPAY | PROVIDERS: PCP Nurse Practitioner Family; Visit Provider Orthopaedic Surgery | DX: M25.511 Pain in right shoulder (principal) | CPT/HCPCS: 20610; 99212; J1010; J2003 ==

== ENCOUNTER 2024-07-27 08:21 | Outpatient (AMB) | payer MEDICARE, SELFPAY ==
--- OUTSIDE RECORDS SUMMARY | 2024-07-27 08:42 | XMS_ITS | Continuity of Care Document ---
Author Organization [facility] Address [address] [place] [address]- Support Name Relationship Address Phone TEQUILA, LEILA Personal Relationship Unknown Rose vailable COURNOYER, LEILA Personal Relationship Unknown Rose vailable COURNOYER, LEILA Personal Relationship Unknown Rose vailable COURNOYER, LEILA Personal Relationship Unknown Rose vailable COURNOYER, LEILA Personal Relationship Unknown Rose vailable COURNOYER, LEILA Personal Relationship Unknown Rose vailable COURNOYER, LEILA spouse Unknown Unavailable COURNOYER, LEILA Personal Relationship Unknown Rose vailable COURNOYER, LEILA Personal Relationship Unknown Rose vailable COURNOYER, LEILA Personal Relationship Unknown Rose vailable COURNOYER, LEILA Personal Relationship Unknown Rose vailable COURNOYER, LEILA Personal Relationship Unknown Rose vailable COURNOYER, LEILA Personal Relationship Unknown Rose vailable COURNOYER, LEILA Personal Relationship Unknown Rose vailable COURNOYER, LEILA Personal Relationship Unknown Rose vailable COURNOYER, LEILA Personal Relationship Unknown Rose vailable COURNOYER, LEILA Personal Relationship Unknown Rose vailable COURNOYER, LEILA Personal Relationship Unknown Rose vailable COURNOYER, LEILA Personal Relationship Unknown Rose vailable COURNOYER, LEILA Personal Relationship Unknown Rose vailable COURNOYER, LEILA Personal Relationship Unknown Rose vailable COURNOYER, LEILA Personal Relationship Unknown Rose vailable COURNOYER, LEILA Personal Relationship Unknown Rose vailable COURNOYER, LEILA Personal Relationship Unknown Rose vailable FLAVIO, ETTA sibling Unknown Unavailable COURNOYER, JANKI child Unknown Unavailable COURNOYER, LEILA Personal Relationship Unknown Rose vailable COURNOYER, EWELINA child Unknown Unavailable COURNOYER, LEILA Personal Relationship Unknown Rose vailable COURNOYER, LEILA Personal Relationship Unknown Rose vailable COURNOYER, LEILA Personal Relationship Unknown Rose vailable COURNOYER, LEILA Personal Relationship Unknown Rose vailable COURNOYER, LEILA Personal Relationship Unknown Rose vailable Care Team Providers Care Surgical Consultant Name Role Phone Roger MILLER, Darius Barillas Primary Care Physician En[place] [facility] [place] Date(s): 06/18/24 - 07/18/24 [facility] [address] [place] [address]- Encounter Type: Triage Allergies, Adverse Reactions, Alerts Substance Criticality Severity Reaction Reaction Severity Status lisinopril Unable to assess criticality Persistent Severe cough Active Augmentin Unable to assess criticality Persistent Moderate makes heart race Active Immunizations Given and Recorded Vaccine Date Status Refusal Reason pneumococcal 20-valent conjugate vaccine 11/27/23 Given zoster vaccine, inactivated 11/20/23 Recorded zoster vaccine, inactivated 09/18/23 Recorded influenza virus vaccine, inactivated 1 05/26/23 Gi estevan influenza virus vaccine, inactivated 04/23/22 Rob rded influenza virus vaccine, inactivated 2 07/24/21 Gi estevan influenza virus vaccine, inactivated 05/01/20 Give n influenza virus vaccine, inactivated 04/14/18 Rob rded influenza virus vaccine, inactivated 3 03/14/18 Gi estevan influenza virus vaccine, inactivated 4 06/04/17 Gi estevan influenza virus vaccine, inactivated 5 03/13/16 Gi estevan influenza virus vaccine, inactivated 6 03/25/15 Gi estevan influenza virus vaccine, inactivated 04/28/13 Give n [id number] 12y+ bivalent booster vax 04/23/22 Recorded SARS-CoV-2 mRNA ([id number]) vax 07/31/21 Recorded SARS-CoV-2 (COVID-19) mRNA BNT-162b2 vac 11/18/20 Recorded SARS-CoV-2 (COVID-19) mRNA BNT-162b2 vac 7 10/28/20 Recorded tetanus-diphtheria toxoids (Td) 8 06/02/20 Given tetanus-diphtheria toxoids (Td) 06/02/00 Given pneumococcal 13-valent vaccine 9 03/25/15 Given pneumococcal 13-valent vaccine 09/15/14 Given Influenza Inactive (IM) (oldterm) 06/10/14 Given pneumococcal 23-valent vaccine 07/28/13 Given FluLaval (oldterm) 07/21/12 Given FluLaval (oldterm) 04/10/10 Given Tet/diphth/pertussis, acel (oldterm) 07/19/11 Give n Fluarix (oldterm) 10 04/04/11 Given influ virus vac, H1N1, inactive(oldterm) 11 05/08/09 Given Zoster Vaccine Live 08/25/08 Given 1Result Comment: Influenza check list completed 2Result Comment: [id number] 3Admin Note: [facility] 4Result Comment: [06/04/2017] 52634-864-50 5Admin Note: [facility] 6Result Comment: [04/03/2015] [facility] 7Result Comment: left arm lot [id number] exp [facility] 8Result Comment: [facility]: [id number] 9Result Comment: [04/03/2015] [facility] 10Admin Note: [facility] 11Admin Note: elsewhere Medications atorvastatin 80 mg oral tablet 1 tablet, By Mouth, Daily at bedtime, # 90 tablet, 3 Refills, Maintenance, 03/20/24 7:53:00 AM EDT, [facility] #[id number], 152, cm, 02/20/24 10:19:00 EDT, Height Start Date: 03/20/24 Status: Ordered Quantity: 90.0 Unit: tablet Repeat number: 4 cpap machine with supplies cpap machine with supplies, See Instructions, # 1 each, Refills 0, Tot. Refills 0, Maintenance, Cpap machine 8 with a heated humidifier with supplies Tubing, filter, masks, head gear, chin strap and water chamber DX KEMAL ICD10 G47.33 ue as directed, 01/04/22 11:02:00 AM EDT, Supply Start Date: 01/04/22 Status: Ordered Quantity: 1.0 Unit: each Repeat number: 1 hydrochlorothiazide 25 mg oral tablet 1, tablet, By Mouth, Daily, # 90 tablet, Refills 1, Tot. Refills 1, Maintenance, 04/23/24 11:03:00 AM EDT, Route to Pharmacy Electronically, [facility] #[id number], 152, cm, 04/02/24 11:03:00 EDT, Height Start Date: 04/23/24 Status: Ordered Quantity: 90.0 Unit: tablet Repeat number: 2 Keppra 250 mg oral tablet 1 tablet = 250 mg, By Mouth, Daily, # 60 tablet, 0 Refills, Maintenance, 02/03/19 4:41:22 PM EDT, Tablet Start Date: 02/03/19 Status: Ordered Quantity: 60.0 Unit: tablet Repeat number: 1 levothyroxine 75 mcg (0.075 mg) oral tablet See Instructions, Take one tablet Friday-Friday (skip Sundays). *this is a dose reduction from 7 tablets weekly, now will be taking 6 tablets weekly (6 tablets per 7 day period)., # 90 tablet, 1 Refills, Maintenance, 07/12/24 9:25:00 AM EST, [facility] #[id number], 152, cm, 04/02/24 11:03:00 EDT, Height Start Date: 07/12/24 Status: Ordered Quantity: 90.0 Unit: tablet Repeat number: 2 Indication: Hypothyroidism, unspecified metoprolol 25 mg oral tablet, extended release 12.5 mg, 0.5, tablet, By Mouth, Daily, Decrease in dose, # 45 tablet, Refills 3, Tot. Refills 3, Maintenance, 03/11/24 6:44:00 AM EDT, Route to Pharmacy Electronically, [facility] #[id number], Partial fill upon patient request if the prescription is for a schedule II opioid drug., 152, cm, 02/20/24 10:19:00 EDT, Height Start Date: 03/11/24 Status: Ordered Quantity: 45.0 Unit: tablet Repeat number: 4 Indication: Unspecified atrial fibrillation nitroglycerin 0.4 mg sublingual tablet 1 tablet = 0.4 mg, Sublingual, Every 5 minutes, PRN for chest pain, If chest pain not relieved in 5min after first dose, call 911, # 25 tablet, 0 Refills, Maintenance, 03/01/21 12:41:00 PM EDT, Tablet, [facility] #[id number], 152.4, cm, 02/27/21 9:33:00 EDT, Height, 95, kg, 06/12/20 11:24:00 EST, Dry Weight Start Date: 03/01/21 Status: Ordered Quantity: 25.0 Unit: tablet Repeat number: 1 polyethylene glycol 3350 oral powder for reconstitution See Instructions, MIX 17 GRAMS INTO WATER OR OTHER LIQUID AND DRINK ONCE A DAY, # 510 Gm, 0 Refills, Maintenance, 06/25/24 2:09:00 PM [facility] #[id number], 30, MIX 17 GRAMS INTO WATER OR OTHER LIQUID AND DRINK ONCE A DAY, 152, cm, 04/02/24 11:03:00 EDT, Height Start Date: 06/25/24 Status: Ordered Quantity: 510.0 Unit: g Repeat number: 1 Vitamin D2 2000 intl units oral capsule 1 capsule = 50 mcg, By Mouth, Daily, with food, # 60 capsule, 5 Refills, Maintenance, 05/02/22 11:56:00 AM EDT, Capsule, [facility] #[id number], Partial fill upon patient request if the prescription is for a schedule II opioid drug., 152, cm, 04/04/22 14:24:00 EDT, Height, 99, kg, 01/03/22 10:14:00 EDT, Dry Weight Start Date: 05/02/22 Status: Ordered Quantity: 60.0 Unit: capsule Repeat number: 6 Indication: Vitamin D deficiency, unspecified Vitamin D3 2000 intl units oral capsule 1 capsule, By Mouth, Daily, # 90 capsule, 0 Refills, Maintenance, 07/16/24 5:14:00 PM [facility] #[id number], 152, cm, 04/02/24 11:03:00 EDT, Height Start Date: 07/16/24 Status: Ordered Quantity: 90.0 Unit: capsule Repeat number: 1 Xarelto 20 mg oral tablet See Instructions, TAKE 1 TABLET BY MOUTH DAILY AT SUPPER, # 90 tablet, 1 Refills, Maintenance, 06/27/24 7:24:00 [id number], 152, cm, 04/02/24 11:03:00 EDT, Height Start Date: 06/27/24 Status: Ordered Quantity: 90.0 Unit: tablet Repeat number: 2 Problem List Condition Confirmation Course Effective Dates Status H ealth Status Informant Arthritis of knee, right Confirmed Active Breast pain Confirmed Active Chronic constipation Confirmed Active Chronic rhinitis Confirmed Active Complex partial seizure Confirmed Active 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 Confirmed Active Diverticulosis of sigmoid colon Confirmed Active Esophageal reflux (GERD) Confirmed 11/07/09 Active Glaucoma suspect Confirmed Active Long-term (current) use of anticoagulants Confirmed Active H/O: breast problem Confirmed Active Hemorrhoids, internal Confirmed Active HLD (hyperlipidemia) Confirmed Active HTN (hypertension) Confirmed Active Hypothyroidism Confirmed Active Impacted cerumen of both ears Confirmed Active Cognitive impairment Confirmed Active Macular degeneration Confirmed Active Mixed stress and urge urinary incontinence Confirmed Active KEMAL (obstructive sleep apnea) Confirmed Active Osteopenia Confirmed Active Paroxysmal atrial fibrillation Confirmed Active Postmenopausal state Confirmed Active S/P TKR (total knee replacement) - left Confirmed Active Seborrheic keratoses Confirmed Active Severe obesity (BMI 35.0-39.9) with comorbidity Confirmed Active Trapezius strain Confirmed Active 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 Confirmed Active Change in vision Confirmed Active Social History Social History Type Response Smoking Status Never (less than 100 in lifetime) entered on: 12/16/22 Sex Sex Representation Female (finding) Patient Care team information Care Team Personnel Name: Darius Duran MD Position: S Physician - Primary Care Member Role: PCP Address: [address] [place] [id number]- Telecom: Care Team Related Persons Name: LEILA MANDEL Name: EWELINA MANDEL Name: ETTA MUNIZ Insurance Providers Guarantor name: LUCIO MANDEL Health Plan Information #: 1 Payer: [facility] [employer] Member Number: NA Policy Number: NA Group Number: NA
--- OUTSIDE RECORDS SUMMARY | 2024-07-27 08:42 | XMS_ITS | Continuity of Care Document ---
Author Organization [facility] Address [address] [place] [address]- Support Name Relationship Address Phone TEQUILA, LEILA [...] Unknown Rose vailable Care Team Providers Care Casino Shift Manager Name Role Phone Roger MILLER, Darius Barillas Primary Care Physician [place] [facility] [place]/24/24 - 07/24/24 [facility] [address] [place] [address]- Encounter Type: Triage Allergies, Adverse Reactions, Alerts [...] influenza virus vaccine, inactivated 04/28/13 Give n [id number] 12y+ bivalent booster vax 04/23/22 Recorded SARS-CoV-2 mRNA ([id number]) vax 07/31/21 Recorded SARS-CoV-2 (COVID-19) mRNA BNT-162b2 [...] Comment: Influenza check list completed 2Result Comment: [id number] 3Admin Note: [facility] 4Result Comment: [06/04/2017] [id number] 5Admin Note: [facility] 6Result Comment: [04/03/2015] [facility] 7Result Comment: left arm lot [id number] exp [facility] 8Result Comment: [facility]: [id number] 9Result Comment: [04/03/2015] [facility] 10Admin Note: [facility] 11Admin Note: elsewhere Medications atorvastatin 80 mg oral tablet 1 tablet, By Mouth, Daily at bedtime, # 90 tablet, 3 Refills, Maintenance, 03/20/24 7:53:00 AM EDT, [facility] #[id number], 152, cm, 02/20/24 10:19:00 EDT, Height Start [...] 11:03:00 AM EDT, Route to Pharmacy Electronically, [facility] #[id number], 152, cm, 04/02/24 11:03:00 EDT, Height Start [...] 1 Refills, Maintenance, 07/12/24 9:25:00 AM EST, [facility] #[id number], 152, cm, 04/02/24 11:03:00 EDT, Height Start Date: 07/12/24 Status: Ordered Quantity: 90.0 Unit: tablet Repeat number: 2 Indication: Hypothyroidism, unspecified metoprolol 25 mg oral tablet, extended release 12.5 mg, 0.5, tablet, By Mouth, Daily, Decrease in dose, # 45 tablet, Refills 3, Tot. Refills 3, Maintenance, 03/11/24 6:44:00 AM EDT, Route to Pharmacy Electronically, [facility] #[id number], Partial fill upon patient request if the [...] Refills, Maintenance, 03/01/21 12:41:00 PM EDT, Tablet, [facility] #[id number], 152.4, cm, 02/27/21 9:33:00 EDT, Height, 95, kg, 06/12/20 11:24:00 EST, Dry Weight Start Date: 03/01/21 Status: Ordered Quantity: 25.0 Unit: tablet Repeat number: 1 polyethylene glycol 3350 oral powder for reconstitution See Instructions, MIX 17 GRAMS INTO WATER OR OTHER LIQUID AND DRINK ONCE A DAY, # 510 Gm, 0 Refills, Maintenance, 06/25/24 2:09:00 PM [facility] #[id number], 30, MIX 17 GRAMS INTO WATER OR OTHER LIQUID AND DRINK ONCE A DAY, 152, cm, 04/02/24 11:03:00 EDT, Height Start Date: 06/25/24 Status: Ordered Quantity: 510.0 Unit: g Repeat number: 1 Vitamin D2 2000 intl units oral capsule 1 capsule = 50 mcg, By Mouth, Daily, with food, # 60 capsule, 5 Refills, Maintenance, 05/02/22 11:56:00 AM EDT, Capsule, [facility] #[id number], Partial fill upon patient request if the [...] capsule, 0 Refills, Maintenance, 07/16/24 5:14:00 PM [facility] #[id number], 152, cm, 04/02/24 11:03:00 EDT, Height Start Date: 07/16/24 Status: Ordered Quantity: 90.0 Unit: capsule Repeat number: 1 Xarelto 20 mg oral tablet See Instructions, TAKE 1 TABLET BY MOUTH DAILY AT SUPPER, # 90 tablet, 1 Refills, Maintenance, 06/27/24 7:24:00 [id number], cm, 04/02/24 11:03:00 EDT, Height Start Date: 06/27/24 Status: Ordered Quantity: 90.0 Unit: tablet Repeat number: 2 Problem List Condition Confirmation Course Effective Dates Status H ealth Status Informant Arthritis of knee, right Confirmed Active Breast pain Confirmed Active Chronic constipation Confirmed Active Chronic rhinitis Confirmed Active Complex partial seizure Confirmed Active Atherosclerosis of [place] coronary artery without angina pectoris Confirmed Active [...] - Primary Care Member Role: PCP Address: [address] [place] [address]- Telecom: Care Team Related Persons Name: LEILA MANDEL Name: EWELINA MANDEL Name: ETTA MUNIZ Insurance Providers Guarantor name: LUCIO MANDEL Health Plan Information #: 1 Payer: [facility] [employer] Member Number: NA Policy Number: NA Group Number: NA
--- NOTE | 2024-07-27 08:56 | MHC.OFFWIV ---
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 Patient Tobacco Use Status: Never used Tobacco Allergies amoxicillin [From AUGMENTIN] Allergy (Unknown, Verified 07/27/24 08:58) HIVES Do you need a note to return to daycare/school/sports/work: No HPI HPI Comments History of Present Illness Details This is a 74-year-old female with past medical history of CVA, coronary artery disease and hypothyroidism presenting for evaluation of a sore throat, runny nose and sneezing that she has had for the past 1 month that he is now involved into a cough which is worse at night. Patient reports having chills but denies having any cough, chest pain or overt shortness for breath. Patient's primary care physician prescribed codeine based cough syrup which she found helpful for her cough. [facility] Medical History Paroxysmal atrial fibrillation CAD (coronary artery disease) HTN (hypertension) Morbid obesity Surgical History Hx of knee surgery Hx of thyroidectomy Hx of hysterectomy Hx of cardiac cath Family History Father No problems noted. Mother No problems noted. Social History Alcohol intake: current Alcohol intake frequency: holidays/special occasions only Patient Tobacco Use Status: Never used Tobacco Review of Systems Const All systems reviewed & are unremarkable except as noted in HPI and below Reports no additional complaints, Reports chills, Reports fatigue and Denies fever(s) Eyes Reports no additional complaints ENT Reports no additional complaints Card Reports as per HPI, Reports no additional complaints, Denies dyspnea and Denies dyspnea on exertion Resp Reports cough, Denies dyspnea and Denies dyspnea on exertion GI Reports no additional complaints Reports no additional complaints Musc Reports no additional complaints Skin/Breast Reports system reviewed and no additional complaints, except as documented Neuro Reports no additional complaints Psych Reports no additional complaints Endo Reports no additional complaints and Reports fatigue Naun/Lymph Reports no additional complaints Aller/Immun Reports no additional complaints Physical Exam Vital Signs: Last Vital Signs Temp 98.1 F 07/27/24 08:58 Pulse 68 07/27/24 08:58 BP 110/68 07/27/24 08:58 Pulse Ox 97 07/27/24 08:58 Oxygen Delivery Method Room Air 07/27/24 08:58 Const General: cooperative, healthy appearing, comfortable, no acute distress, well developed, alert, awake and Physically active; No lethargic Nutritional Appearance: overweight Orientation/consciousness: patient oriented x3 and No lethargic Limitations: no limitations HEENT Head: Yes normal to inspection and Yes normocephalic Ears: hearing grossly normal bilaterally, external ears normal, EAC's not normal (cerumen) and unable to visualize TM bilaterally (cerumen impaction bilaterally) General nose exam: Normal external nose present Face and sinus: Yes normal facial exam and Yes sinuses nontender Mouth: Normal oral and palatal mucosa present Throat: Yes posterior oropharynx normal and No postnasal drainage Eyes General: appearance normal, both eyes and all related structures Neck Lymphatic: no lymphadenopathy noted Resp Effort & Inspection: normal respiratory effort, able to speak in complete sentences, no audible wheezes and no respiratory distress Auscultation: clear to auscultation bilaterally Cardio Rate: regular rate Rhythm: regular rhythm Skin General skin exam: no rashes or lesions noted Neuro General: patient oriented x3 Psych Appearance: grossly normal Mental Status: mental status grossly normal Insight: Good insight present (Psych) Judgement: Good judgement present (Psych) Results Reviewed Results Reviewed: No acute findings noted on chest x-ray. Assessment & Plan Assessment & Plan (1) Acute upper respiratory infection: Code(s): J06.9 - Acute upper respiratory infection, unspecified Plan: There are no acute findings noted on chest x-ray. Patient will be encouraged to take Mucinex daily with increase clear fluids. Plan Mucinex OTC, increase clear fluids daily, ibuprofen or Tylenol as needed for discomfort. Patient will follow up with PCP as needed. Orders: Orders XR chest 2V Today R05.9 - Cough, unspecified Coding Level of Care Code Est Pt Level 3 (69552) Diagnoses Acute upper respiratory infection J06.9 Time Spent (min) 20
[2024-07-27 08:58] VITALS: BP 110/68; PULSE 68; TEMP 36.7; O2SAT 97
== END 2024-07-27 09:55 | disposition home or self-care (01) ==
PROVIDERS: Visit Provider Physician Assistant
DX: J06.9 Acute upper respiratory infection, unspecified (principal)

== ENCOUNTER 2024-07-27 08:21 | Outpatient (REF) | payer MEDICARE, SELFPAY ==
--- NOTE | ~2024-07-27 | XR_ITS ---
EXAMINATION: XR CHEST CLINICAL INFORMATION: R05.9 - Cough, unspecified COMPARISON: 02/01/2019. TECHNIQUE: 2 views of the chest were obtained. FINDINGS: The cardiac, hilar, and mediastinal contours are normal. The lungs are clear bilaterally. There is no pneumothorax or pleural effusion. There is no focal osseous or soft tissue abnormality. Mild degenerative changes of the shoulder joints. Moderate degenerative changes throughout the spine. XR/XR chest 2V IMPRESSION: No active pulmonary disease. Electronically signed by: Mohinder Dorado MD 07/27/2024 10:08 AM [facility]
--- OUTSIDE RECORDS SUMMARY | 2024-07-27 09:45 | XMS_ITS ---
Author Organization [facility] Guido micky Sprakers Address [address] [place] [address] Care Team Providers Care Arborist Name Role Phone Darius Duran MD Primary Care Provider Ronda Morel Unavailable [phone] Allergies Allergen (clinical drug ingredient) Drug/Non Drug [...] 02/17/2024 Encounters Encounter Location Date Provider Diagnosis [facility] [address] [address] 02/17/2024 Ronda Graf Unspecified atherosclerosis of [place] arteries of extremities, bilateral legs I70.203 ; Tinea unguium B35.1 ; Pain in right toe(s) M79.674 and Pain in left toe(s) M79.675 Assessments Encounter Date Diagnosis (ICD Code) Assessment Notes Treatment Notes Treatment Clinical Notes Section Notes 02/17/2024 Unspecified atherosclerosis of [place] arteries of extremities, bilateral legs (ICD-10 - I70.203) 02/17/2024 Tinea unguium (ICD-10 - B35.1) 02/17/2024 Pain in right toe(s) (ICD-10 - M79.674) 02/17/2024 Pain in left toe(s) (ICD-10 - M79.675) Plan Of Treatment Next Appt Details Follow Up: 2 Months, Reason: Provider Name:Ronda hill, 08/27/2024 09:30:00 AM, [address] [place] [address], [phone], Procedure Notes * Category Sub-Category Detail Notes [...] as necessary. Patient chooses, no pharmaceutical tx (79886) Keratoma Treatment Parring or Cutting o f Benign Hyperkeratotic Lesion(s) 44282 ( >4 Lesions) - The Benign hyperkeratotic lesions, as described above were pared, and/or cut utilizing a sterile #15 blade, tissue nippers, and/or dremel, Q8 Progress Notes * Rosalia MANDELmedDOB:1949 (73 yo F)Acc No.[id number]:02/17/2024 Progress Note Patient:?Ayse Mandel Provider:?Ronda Graf DPM :1950???Age:73 Y???Sex:Female D ate:02/17/2024 Address:[address] [place] [address] Pcp:Darius Duran MD Subjective: * Chief Complaints: [...] surgery 05/26/21, 06/09/21 * Hospitalization/Major Diagno stic Procedure:?[facility] [place] [place] - rectal bleeding/hemmoroid 06/2018[facility] [place] [place] and then after 2 day moved to [facility], [place] [place] * Family History:?Mother: dece [...] 1.?Tinea unguium - B35.1?2.? Unspecified atherosclerosis of [place] arteries of extremities, bilateral legs - I70.203 [...] as necessary. Patient chooses, no pharmaceutical tx (35180).?Keratoma Treatment:?Parring or Cutting of Benign Hyperkeratotic Lesion(s)?82657 ( >4 Lesions) - The Benign hyperkeratotic lesions, as described above were pared, and/or cut utilizing a sterile #15 blade, tissue nippers, and/or dremel, Q8.? * Procedure Codes:?22540 DEBRI DE NAIL, 6 OR MORE, Modifiers: XS 30623 TRIM SKIN LESIONS, OVER 4, Modifiers: XS , Q8 * Follow Up:?2 Months * Images: * Sign off status: Completed true * Provider:?Ronda Graf DPM Date:? Generated for Reese jones/Collette/Suad on:?07/27/2024 09:44 AM EST History and Physical Notes * [...]
--- OUTSIDE RECORDS SUMMARY | 2024-07-27 09:45 | XMS_ITS ---
Author Organization [facility] Guido micky Brigido Address [address] [place] [address] Care Team Providers Care Tuckpointer Name Role Phone Darius Duran MD Primary Care Provider Ronda Morel Unavailable [phone] Allergies Allergen (clinical drug ingredient) Drug/Non Drug [...] a day Not-Taking Biotin Not-Taking dexAMETHasone Not-Ta edgar Levothyroxine Sodium 75 MCG 1 tablet in [...] 11/19/2023 Encounters Encounter Location Date Provider Diagnosis [facility] [address] [address] 11/19/2023 oRnda Graf Xerosis of skin L85. 3 ; Unspecified atherosclerosis of [place] arteries of extremities, bilateral legs I70.203 ; Tinea unguium B35.1 ; Pain in right toe(s) M79.674 and Pain in left toe(s) M79.675 Assessments Encounter Date Diagnosis (ICD Code) Assessment Notes Treatment Notes Treatment Clinical Notes Section Notes 11/19/2023 Xerosis of skin (ICD-10 - L85.3) 11/19/2023 Unspecified atherosclerosis of [place] arteries of extremities, bilateral legs (ICD-10 - I70.203) 11/19/2023 Tinea unguium (ICD-10 - B35.1) 11/19/2023 Pain in right toe(s) (ICD-10 - M79.674) 11/19/2023 Pain in left toe(s) (ICD-10 - M79.675) Plan Of Treatment Next Appt Details Follow Up: 2 Months, Reason: Provider Name:Ronda hill, 08/27/2024 09:30:00 AM, [address] [place], [address], Procedure Notes * Category Sub-Category Detail Notes [...] as necessary. Patient chooses, no pharmaceutical tx (46740) Keratoma Treatment Parring or Cutting o f Benign Hyperkeratotic Lesion(s) 29870 ( >4 Lesions) - The Benign hyperkeratotic lesions, as described above were pared, and/or cut utilizing a sterile #15 blade, tissue nippers, and/or dremel, Q8 Progress Notes * Ayse MANDELDOB:1949 (73 yo F)Acc No.[id number]:11/19/2023 Progress Note Patient:?Ayse Mandel Provider:?Ronda Graf DPM :1950???Age:73 Y???Sex:Female D ate:11/19/2023 Address:[address] [place], [place] [id number] Pcp:Darius Duran MD Subjective: * Chief Complaints: [...] surgery 05/26/21, 06/09/21 * Hospitalization/Major Diagno stic Procedure:?[facility] [place]oid [place] [place] then after 2 day moved to [facility], Heart attack [place] [place] * Family History:?Mother: dece [...] Primary), Acute problem, Uncomplicated (3)?2.?Unspecified atherosclerosis of [place] arteries of extremities, bilateral legs - I70.203?3.?Tinea [...] as necessary. Patient chooses, no pharmaceutical tx (41123).?Keratoma Treatment:?Parring or Cutting of Benign Hyperkeratotic Lesion(s)?40662 ( >4 Lesions) - The Benign hyperkeratotic lesions, as described above were pared, and/or cut utilizing a sterile #15 blade, tissue nippers, and/or dremel, Q8.? * Procedure Codes:?70001 DEBRI DE NAIL, 6 OR MORE, Modifiers: XS 26333 TRIM SKIN LESIONS, OVER 4, Modifiers: XS [...] DPM Date:? Generated for Reese jones/Collette/Suad on:?07/27/2024 09:45 AM EST History and Physical Notes * [...]
--- OUTSIDE RECORDS SUMMARY | 2024-07-27 09:45 | XMS_ITS ---
Author Organization [facility] Nadiaelroy Montanezley Address [address] [place] [address] Care Team Providers Care Sander Portable Machine Name Role Phone Darius Duran MD Primary Care Provider Ronda Morel Unavailable [phone] Allergies Allergen (clinical drug ingredient) Drug/Non Drug Allergy documented on EMR Reaction Allergy Type Onset Date Status amoxicillin / clavulanate Augmentin Rapid Heart Rate Drug Allergy Active lisinopril Lisinopril Cough Drug Allergy Activ e REASON FOR VISIT At Risk Footcare, Painful Nail(s) aggrevated by shoes and causing difficulty standing/walking Medications Medication SIG (Take, Route, Frequency, Duration) Notes Start Date End Date Status Propafenone HCl ER 225 MG Orally twice a day Unknown Ciclopirox Olamine 0.77 % 1 application to affected area Externally Twice a day for 30 days Unknown Vitamin D3 Not-Takin g Levoxyl 75 MCG 1 tablet in the morning on an empty stomach Orally Once a day for 30 day(s) Unknown Aspirin 81 MG Orally Unknow n Warfarin Sodium 5 MG Orally Not-Taking Latanoprost 0.005 % 1 drop into affected eye in the evening Ophthalmic Once a day Not-Taking Albuterol Sulfate HFA 108 (90 Base) MCG/ACT 1 puff as needed Inhalation every 4 hrs Not-Taking Biotin Not-Taking Ammonium Lactate 12 % 1 application to affected area Externally to feet Twice a day for 30 days Not-Taking dexAMETHasone Not-Ta levon Ketorolac Tromethamine 0.5 % 1 drop into affected eye as needed Ophthalmic Four times a day Not-Taking Vitamin D3 125 MCG (5000 UT) as directed Orally Not-Taking Sinus & Allergy PRN Not- Taking Eliquis 5 MG as directed Orally Not-Taking Levothyroxine Sodium 75 MCG 1 tablet in the morning on an empty stomach Orally Once a day for 30 day(s) Active levETIRAcetam 250 MG as directed Orally once a day Active Metoprolol Tartrate 25 MG 1 tablet with food Orally Twice a day for 30 day(s) Active hydroCHLOROthiazide 25 MG Orally Active Atorvastatin Calcium 80 MG 1 tablet Oral ly Once a day for 30 day(s) Active Vitamin D2 Active Xarelto 20 MG 1 tablet with food Orally Once a day for 30 day(s) Active Social History Tobacco Use: Social History Observation Description Date Details (start date - stop date) Never Smoker NA - NA Tobacco Use/Smoking Question Answer Notes Are you a: nonsmoker Additional Findings: Tobacco Non-User Current no n-smoker Tobacco use other than smoking: Question Answer Notes Are you an other tobacco user? 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 Patient chooses, no pharmaceutical tx (24475) Keratoma Treatment Parring or Cutting o f Benign Hyperkeratotic Lesion(s) 56566 ( >4 Lesions) - The Benign hyperkeratotic lesions, as described above were pared, and/or cut utilizing a sterile #15 blade, tissue nippers, and/or dremel, Q8 Progress Notes * Rosalia MANDELmedDOB:1949 (74 yo F)Acc No.[id number]:05/18/2024 Progress Note Patient:?Ayse MANDEL Provider:?Ronda Graf DPM :1950???Age:74 Y???Sex:Female D ate:05/18/2024 Address:[address] [place] [address] Pcp:Darius Duran MD Subjective: * Chief Complaints: * ???At Risk FootcarePainful N ail(s) aggrevated by shoes and causing difficulty standing/walking * HPI: ???At Risk footcare:?Pt States Last PCP Visit:?Date?01/29/2024 * ROS:?General/Constitutional:?Nausea?denies.?Vomiting?denies.?Hunger Thirst?denies.?Loss appetite?denies.?Chills?denies.?Fatigue?denies.?Fever?denies.?Night Sweats?denies.?Unexplained weight loss?denies.?Unexplained [...] Surgical History:?left knee replacement 2010thyroidectomy, complete 08/2014colonoscopy 2013sling, at bladder neck 10/24/2010tonsillectomy cataract surgery 05/26/21, 06/09/21 * Hospitalization/Major Diagno stic Procedure:?[facility] - [place]/hemmoroid 06/2018[facility] then after 2 day moved to [facility], Heart attack 01/2019[facility] [place] Heart attack 01/2019 * Family History:?Mother: dece ased 42 yrs, of Breast CA, diagnosed with Other malignant neoplasm of unspecified site.?Father: 93 yrs, osteoporosis, diagnosed with Other malignant neoplasm of unspecified site, Diabetic - NIDDM.?Maternal Grand Father: , diagnosed with Other malignant neoplasm of unspecified site.?Siblings: sister - foot problems.?Spouse: heart attack, poor circulation, diagnosed with Diabetic - NIDDM.?Children: 2 kids heart attack.? * Social History:?Tobacco Use:?Tobacco Use/Smoking?Are you a:?nonsmoker ?Additional Findings: Tobacco Non-User?Current non-smoker ?Tobacco use other than smoking?Are you an other tobacco user??No * Medications:?TakingVitamin D 2 Xarelto 20 MG Tablet 1 tablet with food Orally Once a day Metoprolol Tartrate 25 MG Tablet 1 tablet with food Orally Twice a day hydroCHLOROthiazide 25 MG Tablet Orally Atorvastatin Calcium 80 MG Tablet 1 tablet Orally Once a day Levothyroxine Sodium 75 MCG Tablet 1 tablet in the morning on an empty stomach Orally Once a day levETIRAcetam 250 MG Tablet as directed Orally once a day Taking Vitamin D2 Taking Xarelto 20 MG Tablet 1 tablet with food Orally Once a day Taking Metoprolol Tartrate 25 MG Tablet 1 tablet with food Orally Twice a day Taking hydroCHLOROthiazide 25 MG Tablet Orally Taking Atorvastatin Calcium 80 MG Tablet 1 tablet Orally Once a day Taking Levothyroxine Sodium 75 MCG Tablet 1 tablet in the morning on an empty stomach Orally Once a day Taking levETIRAcetam 250 MG Tablet as directed Orally once a day Not-Taking/PRNSinus & Allergy , Notes to Pharmacist: PRNEliquis 5 MG Tablet as directed Orally dexAMETHasone Ketorolac Tromethamine 0.5 % Solution 1 drop into affected eye as needed Ophthalmic Four times a day Vitamin D3 125 MCG (5000 UT) Capsule as directed Orally Latanoprost 0.005 % Solution 1 drop into affected eye in the evening Ophthalmic Once a day Albuterol Sulfate HFA 108 (90 Base) MCG/ACT Aerosol Solution 1 puff as needed Inhalation every 4 hrs Biotin Ammonium Lactate 12 % Cream 1 application to affected area Externally to feet Twice a day Warfarin Sodium 5 MG Tablet Orally Vitamin D3 Not-Taking/PRN Sinus & Allergy , Notes to Pharmacist: PRNNot-Taking/PRN Eliquis 5 MG Tablet as directed Orally Not-Taking/PRN dexAMETHasone Not-Taking/PRN Ketorolac Tromethamine 0.5 % Solution 1 drop into affected eye as needed Ophthalmic Four times a day Not-Taking/PRN Vitamin D3 125 MCG (5000 UT) Capsule as directed Orally Not- Taking/PRN Latanoprost 0.005 % Solution 1 drop into affected eye in the evening Ophthalmic Once a day Not-Taking/PRN Albuterol Sulfate HFA 108 (90 Base) MCG/ACT Aerosol Solution 1 puff as needed Inhalation every 4 hrs Not-Taking/PRN Biotin Not-Taking/PRN Ammonium Lactate 12 % Cream 1 application to affected area Externally to feet Twice a day Not-Taking/PRN Warfarin Sodium 5 MG Tablet Orally Not-Taking/PRN Vitamin D3 UnknownLevoxyl 75 MCG Tablet 1 tablet in the morning on an empty stomach Orally Once a day Aspirin 81 MG Tablet Delayed Release Orally Propafenone HCl ER 225 MG Capsule Extended Release 12 Hour Orally twice a day Ciclopirox Olamine 0.77 % Cream 1 application to affected area Externally Twice a day Medication List reviewed and reconciled with the patientUnknown Levoxyl 75 MCG Tablet 1 tablet in the morning on an empty stomach Orally Once a day Unknown Aspirin 81 MG Tablet Delayed Release Orally Unknown Propafenone HCl ER 225 MG Capsule Extended Release 12 Hour Orally twice a day Unknown Ciclopirox Olamine 0.77 % Cream 1 application to affected area Externally Twice a day Medication List reviewed and reconciled with the patient * Allergies:?Augmentin: Rapid Heart RateLisinopril: Coughyes[Allergies Verified] Objective: * Vitals:?Ht: 5ft, Wt: 202, BM I: 39.45, Shoe size: 6, Ht-cm: 152.4 cm, Wt-k.63 kg. * Examination: ???Dermatologic: ?SKIN FINDINGS:?Skin exam reveals Keratotic lesion(s) located at, TA, T5, SUB MTH (s), 1, B/L T3 T6 T7, Plantar Heel(s), B/L.?Nails: ?NAILS are:?Elongated, overgrown, dystrophic, lytic, greater than 3mm thick, discolored and friable with crumbly malodorous subungual debris, with pain on palpation , TA, T1, T4, T5, T6, T7, T9, T8.?Vascular: ?DP PULSES(B):?2/4, B/L.?PT PULSES(B):?0/4, B/L.?CAPILLARY FILL TIME:?4 secs. per digit.?TROPHIC CONDITION-TEXTURE/ELASTICITY/TURGOR/HAIR GROWTH(B):?decreased, B/L.?TEMPERTURE GRADIENT(C):?decreased, cool to cold, proximal to distal, B/L.?PIGMENTATION:?normal, B/L.?EDEMA(C):?1/4, B/L, Ankle(s), Leg(s).? Assessment: * Assessment: 1.?Unspecified atheroscleros is of holy cross arteries of extremities, bilateral legs - I70.203 (Primary)???2.?Tinea unguium - B35.1???3.?Pain in right toe(s) - M79.674???4.?Pain in left toe(s) - M79.675??? Plan: * Treatment: * Procedures:?Debride Nail 6-10:?Nail debridement?Nail debridement performed extensively to reduce/remove overall nail length and girth, subungual debris, and necrotic tissue, by manual and electrical means with use of a nail nipper and/or dremel, to more viable healthy nail plate or bed tissue 6-10. Silver nitrate used for any petechial bleeding as necessary. Patient chooses, no pharmaceutical tx (34141).?Keratoma Treatment:?Parring or Cutting of Benign Hyperkeratotic Lesion(s)?07085 ( >4 Lesions) - The Benign hyperkeratotic lesions, as described above were pared, and/or cut utilizing a sterile #15 blade, tissue nippers, and/or dremel, Q8.? * Procedure Codes:?49271 DEBRI DE NAIL, 6 OR MORE, Modifiers: XS 67264 TRIM SKIN LESIONS, OVER 4, Modifiers: XS , Q8 * Follow Up:?3 Months * Images: * Sign off status: Completed true * Provider:?Ronda Graf DPM Date:? Generated for Reese jones/Collette/Suad on:?07/27/2024 09:45 AM EST History and Physical Notes * HPI (History of Present Illness) Category Sub-Category Detail Notes Category Not es At Risk footcare Pt States Last PCP Visit: Date: 4 Examination Category Sub-Category Detail Notes Category Not es Dermatologic SKIN FINDINGS: Skin exam reveal s Keratotic lesion(s) located at, TA, T5, SUB MTH (s), 1, B/L T3 T6 T7, Plantar Heel(s), B/L Vascular DP PULSES (B): 2/4, B/L [...]
--- OUTSIDE RECORDS SUMMARY | 2024-07-27 09:45 | XMS_ITS | Patient Health Record ---
Author Organization [facility] Guido Fofana Address [address] [place] [address] Care Team Providers Care Single End Sewer Name Role Phone Darius Duran MD Primary Care Provider Ronda Morel Unavailable [phone] Allergies Allergen (clinical drug ingredient) Drug/Non Drug [...] Status Risk Notes Problem Unspecified atherosclerosis of [place] arteries of extremities, bilateral legs (I70.203) Active confirmed Problem [id number] Atherosclerosi s of artery of both lower extremities (I70.203) Active confirmed Vital Signs Height 5ft in 05/18/2024 Weight 202 lbs 05/18/2024 BMI 39.45 kg/m2 05/18/2024 Encounters Encounter Location Date Provider Diagnosis [facility] [address] 08/08/2023 Ronda Perica Xerosis of skin L85. 3 ; Unspecified atherosclerosis of [place] arteries of extremities, bilateral legs I70.203 ; Tinea unguium B35.1 ; Pain in right toe(s) M79.674 and Pain in left toe(s) M79.[facility] [address] 11/19/2023 Ronda Perica Xerosis of skin L85. 3 ; Unspecified atherosclerosis of [place] arteries of extremities, bilateral legs I70.203 ; Tinea unguium B35.1 ; Pain in right toe(s) M79.674 and Pain in left toe(s) M79.[address] [address] 02/17/2024 Ronda Graf Unspecified atherosclerosis of [place] arteries of extremities, bilateral legs I70.203 ; Tinea unguium B35.1 ; Pain in right toe(s) M79.674 and Pain in left toe(s) M79.[address] [address] 05/18/2024 Ronda Shanksa Unspecified atherosclerosis of [place] arteries of extremities, bilateral legs I70.203 ; Tinea unguium B35.1 ; Pain in right toe(s) M79.674 and Pain in left toe(s) M79.675 Assessments Encounter Date Diagnosis (ICD Code) Assessment Notes Treatment Notes Treatment Clinical Notes Section Notes 08/08/2023 Xerosis of skin (ICD-10 - L85.3) 11/19/2023 Xerosis of skin (ICD-10 - L85.3) 02/17/2024 Tinea unguium (ICD-10 - B35.1) 02/17/2024 Unspecified atherosclerosis of [place] arteries of extremities, bilateral legs (ICD-10 - I70.203) 05/18/2024 Unspecified atherosclerosis of [place] arteries of extremities, bilateral legs (ICD-10 - I70.203) 11/19/2023 Unspecified atherosclerosis of [place] arteries of extremities, bilateral legs (ICD-10 - I70.203) 02/17/2024 Pain in right toe(s) (ICD-10 - M79.674) 05/18/2024 Tinea unguium (ICD-10 - B35.1) 08/08/2023 Unspecified atherosclerosis of [place] arteries of extremities, bilateral legs (ICD-10 - [...] Treatment Pending Test Test Name Order Date [id number] NAIL, 6 OR MORE 12/12/2017 [id number]-[id number] NAIL, 6 OR MORE 03/06/2018 [id number] NAIL, 6 OR MORE 05/13/2018 16730-WMHG SKIN LESIONS, OVER 4 12/13/19 18 21267-FADK SKIN LESIONS, OVER 4 05/13/20 18 57032-NWGN SKIN LESIONS, OVER 4 03/06/20 18 Next Appt Details Provider Name:Ronda hill, 08/27/2024 09:30:00 AM, [address] [facility], [place], [address], Insurance Providers Payer Name Payer Address Payer Phone Subscriber Number Group Number Insured Name Patient Relationship to Insured Coverage Start Date Coverage End Date [employer] [facility] [address] [place] [address] [id number] Ayse Young Self - patient is the [...] History Reason Date(Month/Year) [facility]- Heart attack 01/2019 [facility] [place] and then after 2 day moved to [facility], Heart attack 01/2019 [facility] [place] ER - rectal bleeding/hemmoroid 9
== END 2024-07-27 08:22 | disposition home or self-care (01) ==
LOC: HO.HMGCX 08:21
PROVIDERS: Visit Provider Physician Assistant
DX: J06.9 Acute upper respiratory infection, unspecified (principal); R05.9 Cough, unspecified
CPT/HCPCS: 71046; 99212

== ENCOUNTER → 2024-07-27 09:21 | Outpatient (BNV) | payer MEDICARE, SELFPAY | PROVIDERS: Visit Provider Radiology Diagnostic Radiology | DX: R05.8 Other specified cough (principal) | CPT/HCPCS: 71046 ==

== ENCOUNTER 2025-02-01 08:59 | Outpatient (AMB) | payer MEDICARE, SELFPAY ==
[2025-02-01 09:03] VITALS: BP 129/80; PULSE 52; TEMP 36.8; O2SAT 96; BMI 40.5
--- NOTE | 2025-02-01 09:03 | MHC.OFFWIV ---
Intake Vital Signs 02/01/25 09:03 Height 5 ft Weight 207 lb 6 oz BMI 40.5 BP 129/80 Blood Pressure Location Lt brachial Position Sitting Pulse 52 Pulse Source Pulse Oximeter Temp 98.2 F Temp Source Oral Pulse Oximetry (%) 96 Oxygen Delivery Method Room Air Intake Visit Reasons: EP Sciatica Patient Tobacco Use Status: Never used Tobacco Print Finisher Required: No Is last menstrual period known: No Post menopausal: Yes Patient : No Allergies amoxicillin (From AUGMENTIN) Allergy (Unknown, Verified 02/01/25 09:08) HIVES Do you need a note to return to daycare/school/sports/work: No HPI HPI Comments History of Present Illness Details History - The patient is a 74-year-old female presenting with sciatica exacerbation. - Right-sided sciatica with radiating pain, worsened by movement. - Increased frequency of episodes recently. - Current treatment includes Tylenol and patches; no prednisone used previously. - Atrial fibrillation managed with Xarelto. - Hypertension managed with hydrochlorothiazide. - Reports abdominal distension and fluid retention, no pitting edema noted. Hasn't been moving her bowels normally, likely secondary to her pain. Physical Exam General: Cooperative, healthy appearing, comfortable, no acute distress and well developed Orientation: Patient oriented x3 Limitations: No limitations Head: Normal to inspection Ears: Hearing grossly normal bilaterally Nose: Normal External nose present Face and sinus: Normal facial exam Mouth: normal, moist oral mucosa Eyes: Appearance normal, both eyes and all related structures Neck: Normal visual inspection and Yes full ROM Respiratory: Normal respiratory effort and able to speak in complete sentences. GI: soft, no TTP throughout abdomen, no guarding Skin: no rashes or lesions noted Neuro: Patient oriented x3 Extremities: moving all extremities normally, + straight leg test on right side. No edema noted bilateral [facility] Medical History Paroxysmal atrial fibrillation CAD (coronary artery disease) HTN (hypertension) Morbid obesity Surgical History Hx of knee surgery Hx of thyroidectomy Hx of hysterectomy Hx of cardiac cath Family History Father No problems noted. Mother No problems noted. Social History Alcohol intake: current Alcohol intake frequency: holidays/special occasions only Patient Tobacco Use Status: Never used Tobacco Patient : No Review of Systems Const All systems reviewed & are unremarkable except as noted in HPI and below Physical Exam Vital Signs: Last Vital Signs Temp 98.2 F 02/01/25 09:03 Pulse 52 02/01/25 09:03 BP 129/80 02/01/25 09:03 Pulse Ox 96 02/01/25 09:03 Oxygen Delivery Method Room Air 02/01/25 09:03 BMI result Body Mass Index 40.5 Assessment & Plan Assessment & Plan (1) Sciatica, right side: Code(s): M54.31 - Sciatica, right side Plan: Plan Patient was informed and verbally consented to the use of an ambient scribe for clinic note documentation during this visit Sciatica - Prescribe prednisone 40 mg daily for five days. - Use ice packs on the right buttock. - Rest and avoid stretching until improvement. (2) Constipation: Code(s): K59.00 - Constipation, unspecified Qualifiers: Constipation type: unspecified constipation type Qualified Code(s): K59.00 - Constipation, unspecified Plan: Can add Metamucil daily, Colace and laxatives, if no improvement in her abdominal bloating, very important follow up with PCP. Medications: New prednisone 40 mg (2 x 20 mg) PO QAM 10 tabs 0RF Coding Level of Care Code New Pt Level 4 (19137) Diagnoses Sciatica, right side M54.31 Constipation, unspecified constipation type K59.00 Constipation type: unspecified constipation type
== END 2025-02-01 10:02 | disposition home or self-care (01) ==
PROVIDERS: Visit Provider Physician Assistant
DX: M54.31 Sciatica, right side (principal); K59.00 Constipation, unspecified

== ENCOUNTER → 2025-02-01 08:59 | Outpatient (BNVA) | payer MEDICARE, SELFPAY | PROVIDERS: Visit Provider Physician Assistant | DX: M54.31 Sciatica, right side (principal); K59.00 Constipation, unspecified | CPT/HCPCS: 99202 ==

== ENCOUNTER 2025-02-14 08:39 | Outpatient (REF) | payer MEDICARE, SELFPAY ==
--- NOTE | ~2025-02-14 | XR_ITS ---
EXAMINATION: XR HAND, RIGHT CLINICAL INFORMATION: W19.XXXA - Unspecified fall, initial encounter COMPARISON: None available. TECHNIQUE: PA, lateral, and oblique views of the right hand. FINDINGS: Degenerative changes with asymmetric joint space narrowing involving the proximal and distal interphalangeal joints of the digits. Changes in the first carpometacarpal joint and scaphoid trapezoid joint. Chondrocalcinosis at the radiocarpal ulnar joint. Osteopenia versus osteoporosis. No acute cortical disruption or malalignment. No lytic or blastic lesions. No subcutaneous emphysema. XR/XR hand RT min 3V IMPRESSION: Moderate to severe osteoarthritis/osteoarthrosis. Electronically signed by: Stef Romero MD 02/14/2025 10:57 AM EDT
--- NOTE | ~2025-02-14 | XR_ITS ---
EXAMINATION: XR WRIST, RIGHT CLINICAL INFORMATION: W19.XXXA - Unspecified fall, initial encounter COMPARISON: None available. TECHNIQUE: PA, lateral, and oblique views of the right wrist. Scaphoid view. FINDINGS: Degenerative changes with sclerosis and subarticular surfaces and subchondral cyst formation at the trapezium and trapezium first metacarpal. Sclerosis along the articular surface of the radiocarpal joint. Chondrocalcinosis at the radial ulnar carpal joint. Osteopenia versus osteoporosis. No acute cortical disruption or malalignment. No lytic or blastic lesions. No subcutaneous emphysema. XR/XR wrist RT w scaphoid IMPRESSION: Osteoarthritis, moderate to severe, scaphoid trapezoid and trapezium first metacarpal joint. Probable CPPD. Electronically signed by: Stef Romero MD 02/14/2025 10:56 AM EDT
== END 2025-02-14 08:40 | disposition home or self-care (01) ==
LOC: HO.HMGCX 08:39
PROVIDERS: Visit Provider Physician Assistant
DX: S60.211A Contusion of right wrist, initial encounter (principal); S60.221A Contusion of right hand, initial encounter; W19.XXXA Unspecified fall, initial encounter; Y92.009 Unspecified place in unspecified non-institutional (private) residence as the place of occurrence of the external cause
CPT/HCPCS: 73110; 73130; 99212

== ENCOUNTER 2025-02-14 08:39 | Outpatient (AMB) | payer MEDICARE, SELFPAY ==
--- OUTSIDE RECORDS SUMMARY | 2025-02-14 09:00 | XMS_ITS | Patient Health Record ---
Author Organization [facility] Address [address] [place] [address] Care Team Providers Care Stna Name Role Phone Erick Dominguez MD Primary Care Provider Guy Tovar Jr Unavailable [phone] Reason For Referral No Information Medications Medication SIG (Take, Route, Fr equency, Duration) Notes Start Date End Date Status Suprep Bowel Prep 1 as directed Orally 1 for 1 dose 09/23/2012 06/30/2024 Active Fish Oil Active Ocuvite Active Vitamin D Active Calcium Active Social History Tobacco Use: Social History Observation Description Date Details (start date - stop date) Never Smoker NA - NA Tobacco Use/Smoking Question Answer Notes Patient is a nonsmoker Alcohol Screen Question Answer Notes Did you have a drink containing alcohol in the p ast year? No Points 0 Interpretation Negative Problems Problem Type SNOMED Code ICD Code Onset Dates Problem Status W/U Status Risk Notes Problem Esophageal reflux (762807738) Esophageal reflux (530.81) Active confirmed Problem Colon cancer screening (960582970) Colon cancer screening (V76.51) Active confirmed Plan Of Treatment Future Test Test Name Order Date COLONOSCOPY 09/23/2012 Insurance Providers Payer Name Payer Address Payer Phone Subscriber Number Group Number Insured Name Patient Relationship to Insured Coverage Start Date Coverage End Date [facility] [employer] [facility] [address] [address] [place], [place] [id number] LUCIO COWART Self - patient is the insured Medical (General) History Medical History History ICD Code gerd glaucoma Surgical History Surgery Date(Month/Year) hysterectomy for abnormal uterine bleedi ng Left knee replacement Carpal tunnel
--- OUTSIDE RECORDS SUMMARY | 2025-02-14 09:00 | XMS_ITS | Patient Health Record ---
Author Organization [facility] Nadiaelroy Fofana Address [address] [place] [address] Care Team Providers Care Supervisor Belt And Link Assembly Name Role Phone Darius Duran MD Primary Care Provider Ronda Morel Unavailable [phone] Allergies Allergen (clinical drug ingredient) Drug/Non Drug Allergy documented on EMR Reaction Allergy Type Onset Date Status amoxicillin / clavulanate Augmentin Rapid Heart Rate Drug Allergy Active lisinopril Lisinopril Cough Drug Allergy Activ e Reason For Referral No Information Medications Medication SIG (Take, Route, Frequency, Duration) Notes Start Date End Date Status Sinus & Allergy PRN Not- Taking Ammonium Lactate 12 % 1 application Externally to affected areas of dry skin to feet except for between the toes Twice a day; Duration: 30 days Active Vitamin D3 Not-Takin g levETIRAcetam 250 MG as directed Orally once a day Active Warfarin Sodium 5 MG Orally Not-Taking Levothyroxine Sodium 75 MCG 1 tablet in the morning on an empty stomach Orally Once a day; Duration: 30 day(s) Active Ammonium Lactate 12 % 1 application to affected area Externally to feet Twice a day; Duration: 30 days Not-Taking Atorvastatin Calcium 80 MG 1 tablet Oral ly Once a day; Duration: 30 day(s) Active Biotin Not-Taking hydroCHLOROthiazide 25 MG Orally Active Albuterol Sulfate HFA 108 (90 Base) MCG/ACT 1 puff as needed Inhalation every 4 hrs Not-Taking Metoprolol Tartrate 25 MG 1 tablet with food Orally Twice a day; Duration: 30 day(s) Active Latanoprost 0.005 % 1 drop into affected eye in the evening Ophthalmic Once a day Not-Taking Xarelto 20 MG 1 tablet with food Orally Once a day; Duration: 30 day(s) Active Vitamin D3 125 MCG (5000 UT) as directed Orally Not-Taking Vitamin D2 Active Ketorolac Tromethamine 0.5 % 1 drop into affected eye as needed Ophthalmic Four times a day Not-Taking Ciclopirox Olamine 0.77 % 1 application to affected area Externally Twice a day; Duration: 30 days Unknown dexAMETHasone Not-Ta levon Propafenone HCl ER 225 MG Orally twice a day Unknown Eliquis 5 MG as directed Orally Not-Taking Aspirin 81 MG Orally Unknow n Levoxyl 75 MCG 1 tablet in the morning on an empty stomach Orally Once a day; Duration: 30 day(s) Unknown Immunizations Vaccine Route Administration Date Status Comme [...] Problem Status W/U Status Risk Notes Problem Bilateral atherosclerosis of arteries of lower limbs (disorder) ([id number] ) Unspecified atherosclerosis of [place] arteries of extremities, bilateral legs (I70.203) Active confirmed Problem Atherosclerosis of artery of both lower extremities (I70.203) Active confirmed Vital Signs Blood pressure diastolic 67 mm Hg 11/26/2024 Height 5ft in 11/26/2024 Blood pressure systolic 118 mm Hg 11/26/2024 Weight 204 lbs 11/26/2024 BMI 39.84 kg/m2 11/26/2024 Encounters Encounter Location Date Provider Diagnosis [facility] [place] [address] [place] [address] 02/17/2024 Ronda Graf Unspecified atherosclerosis of [place] arteries of extremities, bilateral legs I70.203 ; Tinea unguium B35.1 ; Pain in right toe(s) M79.674 and Pain in left toe(s) M79.[address] [address] 05/18/2024 Ronda Perica Unspecified atherosclerosis of [place] arteries of extremities, bilateral legs I70.203 ; Tinea unguium B35.1 ; Pain in right toe(s) M79.674 and Pain in left toe(s) M79.[address] [address] 08/27/2024 Ronda Perica Unspecified atherosclerosis of [place] arteries of extremities, bilateral legs I70.203 ; Xerosis of skin L85.3 ; Tinea unguium B35.1 ; Pain in right toe(s) M79.674 and Pain in left toe(s) M79.[address] [address] 11/26/2024 Ronda Perica Xerosis of skin L85. 3 ; Tinea unguium B35.1 ; Unspecified atherosclerosis of [place] arteries of extremities, bilateral legs I70.203 ; Pain in right toe(s) M79.674 and Pain in left toe(s) M79.675 Assessments Encounter Date Diagnosis (ICD Code) Assessment Notes Treatment Notes Treatment Clinical Notes Section Notes 02/17/2024 Tinea unguium (ICD-10 - B35.1) 02/17/2024 Unspecified atherosclerosis of [place] arteries of extremities, bilateral legs (ICD-10 - I70.203) 05/18/2024 Unspecified atherosclerosis of [place] arteries of extremities, bilateral legs (ICD-10 - I70.203) 08/27/2024 Unspecified atherosclerosis of [place] arteries of extremities, bilateral legs (ICD-10 - I70.203) 08/27/2024 Xerosis of skin (ICD-10 - L85.3) 11/26/2024 Tinea unguium (ICD-10 - B35.1) 11/26/2024 Xerosis of skin (ICD-10 - L85.3) 11/26/2024 Unspecified atherosclerosis of [place] arteries of extremities, bilateral legs (ICD-10 - I70.203) 08/27/2024 Tinea unguium (ICD-10 - B35.1) 02/17/2024 Pain in right toe(s) (ICD-10 - M79.674) 05/18/2024 Tinea unguium (ICD-10 - B35.1) 02/17/2024 Pain in left toe(s) (ICD-10 - M79.675) 08/27/2024 Pain in right toe(s) (ICD-10 - M79.674) 05/18/2024 Pain in right toe(s) (ICD-10 - M79.674) 11/26/2024 Pain in right toe(s) (ICD-10 - M79.674) 11/26/2024 Pain in left toe(s) (ICD-10 - M79.675) 05/18/2024 Pain in left toe(s) (ICD-10 - M79.675) 08/27/2024 Pain in left toe(s) (ICD-10 - M79.675) Plan Of Treatment Pending Test Test Name Order Date [id number] NAIL, 6 OR MORE 12/12/2017 [id number] NAIL, 6 OR MORE 03/06/2018 [id number] NAIL, 6 OR MORE 05/13/2018 [id number] SKIN LESIONS, OVER 4 12/13/19 18 [id number] SKIN LESIONS, OVER 4 05/13/20 18 [id number]-[id number] SKIN LESIONS, OVER 4 03/06/20 18 Next Appt Details Provider Name:Ronda hill, 03/08/2025 09:30:00 AM, [address] [place], [address], Insurance Providers Payer Name Payer Address Payer Phone Subscriber Number Group Number Insured Name Patient Relationship to Insured Coverage Start Date Coverage End Date [employer] [place] [employer]age [facility] [address] [place] [address] [phone] [id number] Ayse Young Self - patient is the insured Medical (General) History Medical History History ICD Code Back,Hip,and Knee pain Epilepsy Arthritis of Knee (right) chronic rhinitis Diverticulosis Reflux ( GERD) Glaucoma Hyperlipidemia Hypertension Hyperthyroidism Macular degeneration Sleep apnea Osteopenia Atrial fibrillation ([place]) Menopause Overactive bladder (OAB) Surgical History Surgery Date(Month/Year) left knee replacement 2010 thyroidectomy, complete 08/2014 colonoscopy 2012 sling, at bladder neck 10/24/2010 tonsillectomy cataract surgery 05/26/21, 06/09/21 Hospitalization History Reason Date(Month/Year) [facility]- [place] [facility] [place] [facility] [place] [facility], Heart attack 01/2019 [facility] [place] - rectal bleeding/hemmoroid 9
--- NOTE | 2025-02-14 09:37 | AM.OFFWIN_ITS ---
Intake Vital Signs 02/14/25 09:40 Height 5 ft Weight 207 lb BMI 40.4 BP 110/76 Blood Pressure Location Lt brachial Position Sitting Pulse 50 Pulse Source Pulse Oximeter Temp 98.0 F Temp Source Oral Pulse Oximetry (%) 100 Oxygen Delivery Method Room Air Intake Visit Reasons: EP Fall, RT hand swollen, back of leg pain Intake Note: pt presents with her brother, c/o right hand/wrist and right calf pain after falling at home 2 nights ago Patient Tobacco Use Status: Never used Tobacco Allergies amoxicillin (From AUGMENTIN) Allergy (Unknown, Verified 02/14/25 09:44) HIVES Do you need a note to return to daycare/school/sports/work: No HPI HPI Comments History of Present Illness Details History of Present Illness - The patient is a 74-year-old female pr esenting with right wrist pain following a fall 2 nights ago. - The patient has a history of sciatica, which was managed with prednisone, but symptoms recurred after stopping the medication. - The fall occurred two days ago when th e patient lost balance while attempting to stand, resulting in a fall onto her right side. - Following the fall, the patient experi enced swelling and tenderness in the right hand and wrist, with limited movement due to pain. - The patient is on Xarelto and cannot t david ibuprofen, using Tylenol instead, which has provided some relief. - Ice was applied but did not reduce swe lling or pain. - She did not hit her head or lose consc iousness Physical Exam General: Cooperative, healthy appearing, comfortable, no acute distress and well developed Orientation: Patient oriented x3 Limitations: Right hand and right wrist movement limited due to pain Head: Normal to inspection Ears: Hearing grossly normal bilaterally Nose: Normal External nose present Face and sinus: Normal facial exam Eyes: Appearance normal, both eyes and all related structures Neck: Normal visual inspection and Yes full ROM Respiratory: Normal respiratory effort and able to speak in complete sentences. Skin: No rashes or lesions noted Neuro: Patient oriented x3 Extremities: right elbow with no TTP, full ROM, right wrist with scaphoid tenderness and TTP of distal ulnar and radius, TTP along metacarpals to PIP's of fingers, full ROM, NVI. no skin changes. [facility] Medical History Paroxysmal atrial fibrillation CAD (coronary artery disease) HTN (hypertension) Morbid obesity Surgical History Hx of knee surgery Hx of thyroidectomy Hx of hysterectomy Hx of cardiac cath Family History Father No problems noted. Mother No problems noted. Social History Alcohol intake: current Alcohol intake frequency: holidays/special occasions only Patient Tobacco Use Status: Never used Tobacco Review of Systems Const All systems reviewed & are unremarkable except as noted in HPI and below Physical Exam Vital Signs: Last Vital Signs Temp 98.0 F 02/14/25 09:40 Pulse 50 02/14/25 09:40 BP 110/76 02/14/25 09:40 Pulse Ox 100 02/14/25 09:40 Oxygen Delivery Method Room Air 02/14/25 09:40 BMI result Body Mass Index 40.4 Assessment & Plan Assessment & Plan (1) Fall as cause of accidental injury in home as place of occurrence: Code(s): W19.XXXA - Unspecified fall, initial encounter; Y92.009 - Unspecified place in unspecified non-institutional (private) residence as the place of occurrence of the external cause Qualifiers: Encounter type: initial encounter Qualified Code(s): W19.XXXA - Unspecified fall, initial encounter; Y92.009 - Unspecified place in unspecified non-institutional (private) residence as the place of occurrence of the external cause Plan: Plan - X-rays of the right hand and wrist will be obtained to check for fractures. - - A wrist brace will be provided to support and immobilize the wrist for healing. - Tylenol will be used for pain relief, as the patient cannot take NSAIDs due to Xarelto use. - Rest, ice, and time are recommended for conservative management. FINDINGS: Degenerative changes with asymmetric joint space narrowing involving the proximal and distal interphalangeal joints of the digits. Changes in the first carpometacarpal joint and scaphoid trapezoid joint. Chondrocalcinosis at the radiocarpal ulnar joint. Osteopenia versus osteoporosis. No acute cortical disruption or malalignment. No lytic or blastic lesions. No subcutaneous emphysema. XR/XR hand RT min 3V IMPRESSION: Moderate to severe osteoarthritis/osteoarthrosis. FINDINGS: Degenerative changes with sclerosis and subarticular surfaces and subchondral cyst formation at the trapezium and trapezium first metacarpal. Sclerosis along the articular surface of the radiocarpal joint. Chondrocalcinosis at the radial ulnar carpal joint. Osteopenia versus osteoporosis. No acute cortical disruption or malalignment. No lytic or blastic lesions. No subcutaneous emphysema. XR/XR wrist RT w scaphoid IMPRESSION: Osteoarthritis, moderate to severe, scaphoid trapezoid and trapezium first metacarpal joint. Probable CPPD. Electronically signed by: Stef Romero MD 02/14/2025 10:56 AM EDT RP Patient was informed and verbally consented to the use of an ambient scribe for clinic note documentation during this visit. (2) Wrist contusion: Code(s): S60.219A - Contusion of unspecified wrist, initial encounter Qualifiers: Encounter type: initial encounter Laterality: right Qualified Code(s): S60.211A - Contusion of right wrist, initial encounter Plan: as above (3) Contusion of hand, right: Code(s): S60.221A - Contusion of right hand, initial encounter Qualifiers: Encounter type: initial encounter Qualified Code(s): S60.221A - Contusion of right hand, initial encounter Plan: as above Orders: Orders XR wrist RT w scaphoid Today S60.219A - Contusion of unspecified wrist, initial encounter, S60.221A - Contusion of right hand, initial encounter, W19.XXXA - Unspecified fall, initial encounter, Y92.009 - Unspecified place in unspecified non-institutional (private) residence as the place of occurrence of the external cause XR hand RT min 3V Today S60.219A - Contusion of unspecified wrist, initial encounter, S60.221A - Contusion of right hand, initial encounter, W19.XXXA - Unspecified fall, initial encounter, Y92.009 - Unspecified place in unspecified non-institutional (private) residence as the place of occurrence of the external cause Coding Level of Care Code Est Pt Level 4 (66271) Diagnoses Fall as cause of accidental injury in home as place of occurrence, initial encounter W19.XXXA; Y92.009 Encounter type: initial encounter Contusion of right wrist, initial encounter S60.211A Encounter type: initial encounter Laterality: right Contusion of right hand, initial encounter S60.221A Encounter type: initial encounter
[2025-02-14 09:40] VITALS: BP 110/76; PULSE 50; TEMP 36.7; O2SAT 100; BMI 40.4
== END 2025-02-14 16:06 | disposition home or self-care (01) ==
PROVIDERS: Visit Provider Physician Assistant
DX: S60.211A Contusion of right wrist, initial encounter (principal); S60.221A Contusion of right hand, initial encounter; W19.XXXA Unspecified fall, initial encounter; Y92.009 Unspecified place in unspecified non-institutional (private) residence as the place of occurrence of the external cause

== ENCOUNTER → 2025-02-14 10:16 | Outpatient (BNV) | payer MEDICARE, SELFPAY | PROVIDERS: Visit Provider Radiology Diagnostic Radiology | DX: M18.11 Unilateral primary osteoarthritis of first carpometacarpal joint, right hand (principal) | CPT/HCPCS: 73110; 73130 ==

== ENCOUNTER 2025-02-22 10:20 | Outpatient (AMB) | payer MEDICARE, SELFPAY ==
--- OUTSIDE RECORDS SUMMARY | 2025-02-20 23:59 | XMS_ITS | Continuity of Care Document ---
Author Organization [facility] Address [address] [place] [address]- Support Name Relationship Address Phone LEILA MANDEL Personal Relationship Unknown Rose vailable COURNOYER, LEILA [...] Unknown Rose vailable Care Team Providers Care Patient Care Associate Name Role Phone Roger MILLER, Darius Barillas Primary Care Physician [phone] [place] [facility] [place] [address] [place] [address]- Encounter Type: Triage Allergies, Adverse Reactions, Alerts [...] influenza virus vaccine, inactivated 04/28/13 Give n [id number] 12y+ bivalent booster vax 04/23/22 Recorded SARS-CoV-2 mRNA (wehtepa-hdaf-jqaid) vax 07/31/21 Recorded SARS-CoV-2 (COVID-19) mRNA BNT-162b2 [...] Comment: Influenza check list completed 2Result Comment: [id number] 3Admin Note: Roshni 4Result Comment: [06/04/2017] [id number] 5Admin Note: Lacie 6Result Comment: [04/03/2015] lacie 7Result Comment: left arm lot [id number] exp Walriteshmauricio 8Result Comment: [facility]: [id number] 9Result Comment: [04/03/2015] alcie 10Admin Note: [facility] 11Admin Note: elsewhere Medications atorvastatin 80 mg oral tablet 1 tablet, By Mouth, Daily at bedtime, # 90 tablet, 3 Refills, Maintenance, 03/20/24 7:53:00 AM EDT, [facility][id number], 152, cm, 02/20/24 10:19:00 EDT, Height Start [...] Mouth, Daily, # 90 tablet, Refills 1, Maintenance, 10/12/24 9:28:00 AM EDT, Route to Pharmacy Electronically, [facility] #[id number], 152, cm, 04/02/24 11:03:00 EDT, Height Start Date: 10/12/24 Status: Ordered Quantity: 90.0 Unit: tablet Repeat number: 1 Keppra 250 mg oral tablet 1 tablet [...] 1 Refills, Maintenance, 07/12/24 9:25:00 AM EST, [facility] #[id number], 152, cm, 04/02/24 11:03:00 EDT, Height Start Date: 07/12/24 Status: Ordered Quantity: 90.0 Unit: tablet Repeat number: 2 Indications: Hypothyroidism, unspecified; metoprolol 25 mg oral tablet, extended release 12.5 mg, 0.5, tablet, By Mouth, Daily, Decrease in dose, # 45 tablet, Refills 3, Tot. Refills 3, Maintenance, 03/11/24 6:44:00 AM EDT, Route to Pharmacy Electronically, [facility] #[id number], Partial fill upon patient request if the prescription is for a schedule II opioid drug., 152, cm, 02/20/24 10:19:00 EDT, Height Start Date: 03/11/24 Status: Ordered Quantity: 45.0 Unit: tablet Repeat number: 4 Indications: Unspecified atrial fibrillation; nitroglycerin 0.4 mg sublingual tablet 1 tablet = 0.4 mg, Sublingual, Every 5 minutes, PRN for chest pain, If chest pain not relieved in 5min after first dose, call 911, # 25 tablet, 0 Refills, Maintenance, 03/01/21 12:41:00 PM EDT, Tablet, [facility] #[id number], 152.4, cm, 02/27/21 9:33:00 EDT, Height, 95, kg, 06/12/20 11:24:00 EST, Dry Weight Start Date: 03/01/21 Status: Ordered Quantity: 25.0 Unit: tablet Repeat number: 1 polyethylene glycol 3350 oral powder for reconstitution See Instructions, MIX 17 GRAMS INTO WATER OR OTHER LIQUID AND DRINK ONCE A DAY, # 510 Gm, 3 Refills, Maintenance, 09/09/24 2:53:00 AM EDT, [facility] #[id number], 30, MIX 17 GRAMS INTO WATER OR OTHER LIQUID AND DRINK ONCE A DAY, 152, cm, 04/02/24 11:03:00 EDT, Height Start Date: 09/09/24 Status: Ordered Quantity: 510.0 Unit: g Repeat number: 1 Vitamin D2 2000 intl units oral capsule 1 capsule = 50 mcg, By Mouth, Daily, with food, # 60 capsule, 5 Refills, Maintenance, 05/02/22 11:56:00 AM EDT, Capsule, [facility] #[id number], Partial fill upon patient request if the prescription is for a schedule II opioid drug., 152, cm, 04/04/22 14:24:00 EDT, Height, 99, kg, 01/03/22 10:14:00 EDT, Dry Weight Start Date: 05/02/22 Status: Ordered Quantity: 60.0 Unit: capsule Repeat number: 6 Indications: Vitamin D deficiency, unspecified; Vitamin D3 2000 intl units oral capsule 1 capsule, By Mouth, Daily, # 90 capsule, 0 Refills, Maintenance, 08/09/24 3:19:00 PM EST, [facility] #[id number], 152, cm, 04/02/24 11:03:00 EDT, Height Start Date: 08/09/24 Status: Ordered Quantity: 90.0 Unit: capsule Repeat number: 1 Xarelto 20 mg oral tablet See Instructions, TAKE 1 TABLET BY MOUTH DAILY AT SUPPER, # 90 tablet, 3 Refills, Maintenance, 12/16/24 9:39:00 AM EDT, [facility] #[id number], 152, cm, 12/13/24 9:44:00 EDT, Height Start Date: 12/16/24 Status: Ordered Quantity: 90.0 Unit: tablet Repeat number: 1 Problem List Condition Confirmation Course Effective Dates Status H ealth Status Informant Arthritis of knee, right Confirmed Active Breast pain Confirmed Active Chronic constipation Confirmed Active Chronic rhinitis Confirmed Active Complex partial seizure Confirmed Active Atherosclerosis of [place] coronary artery without angina pectoris Confirmed Active [...] Active Seborrheic keratoses Confirmed Active Severe obesity Confirmed Active Trapezius strain Confirmed Active 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 Confirmed Active Change in vision Confirmed Active Social History Social History Type Response Smoking Status Never (less than 100 in lifetime) entered on: 12/16/22 Sex Sex Representation Female (finding) Patient Care team information Care Team Personnel Name: Darius Duran MD Position: [facility] Physician - Primary Care Member Role: PCP Address: [address] [place] [id number] Telecom: Care Team Related Persons Name: LEILA MANDEL Name: EWELINA MANDEL Name: ETTA MUNIZ Insurance Providers Guarantor name: LUCIO MANDEL Health Plan Information #: 1 Payer: [employer] H[employer] Payer Identifier: [place] Member Number: [id number] Group Number: [id number] Subscriber Identifier: [id number] Relationship to Subscriber: self Coverage Type: Medicare HMO Coverage Verification Date: NA Telecom: NA Address:
[2025-02-22 10:35] VITALS: BP 120/76; PULSE 44; BMI 40.5
--- NOTE | 2025-02-22 10:35 | A.OFFVIS_ITS ---
Vital Signs 02/22/25 10:35 Height 5 ft Weight 207 lb 3.752 oz BMI 40.5 BP 120/76 Blood Pressure Location Lt brachial Position Sitting Pulse 44 L Intake Visit Reasons: 1 yr f/up Intake Note: 1 year follow-up with ekg feeling good Workers Compensation Defense Attorney Required: No Allergies amoxicillin (From AUGMENTIN) Allergy (Unknown, Verified 02/14/25 09:44) HIVES Medication List - Last Reconciled 02/22/25 by Leoncio Carpio MD atorvastatin 80 mg PO DAILY cholecalciferol (vitamin D3) 50 mcg PO DAILY hydrochlorothiazide 25 mg PO DAILY levetiracetam 250 mg PO DAILY levothyroxine 75 mcg PO DAILY metoprolol succinate ER 12.5 mg (1/2 x 25 mg) PO DAILY rivaroxaban (Xarelto) 20 mg PO DAILY HPI Comments Details: Ayse comes for follow-up of atrial fibrillation. She says she feels a lot better since dropping her metoprolol last year says less short of breath although comes in today and still noticed to be in significant bradycardia. She has occasional lightheaded spells but these are very seldom. She has had no syncopal episodes. She has not had any prolonged palpitation irregular heartbeat. No bleeding issues or neurologic events. Denies any exertional chest pain. No heart failure symptoms. [facility] Medical History Paroxysmal atrial fibrillation CAD (coronary artery disease) HTN (hypertension) Morbid obesity Surgical History Hx of knee surgery Hx of thyroidectomy Hx of hysterectomy Hx of cardiac cath Family History Father No problems noted. Mother No problems noted. Social History Alcohol intake: current Alcohol intake frequency: holidays/special occasions only Patient Tobacco Use Status: Never used Tobacco Review of Systems Const Denies chills, Denies fatigue, Denies fever(s), Denies frequent falls, Denies weakness, Denies weight gain and Denies weight loss ENT Denies dizziness Card Denies chest pain, Denies leg edema, Denies lightheadedness, Denies palpitations, Denies dyspnea, Denies dyspnea on exertion, Denies orthopnea and Denies other (loss of consciousness) Resp Denies cough, Denies dyspnea and Denies dyspnea on exertion GI Denies hematochezia and Denies change in stool character Musc Denies abnormal gait, Denies muscle weakness, Denies numbness, Denies radiating pain into limb and Denies tingling Neuro Denies abnormal gait, Denies dizziness, Denies frequent falls, Denies numbness, Denies tingling and Denies weakness Endo Denies fatigue and Denies palpitations Physical Exam Vital Signs: Last Vital Signs Pulse 44 L 02/22/25 10:35 BP 120/76 02/22/25 10:35 BMI result Body Mass Index 40.5 Const General: cooperative, healthy appearing, comfortable and no acute distress Orientation/consciousness: patient oriented x3 Neck Neck: Yes normal visual inspection and Yes no JVD Resp Effort & Inspection: normal respiratory effort Auscultation: clear to auscultation bilaterally, no crackles, no rales, no rhonchi and no wheezes Cardio Jugular venous distension: no JVD Rate: regular rate Rhythm: regular rhythm Heart sounds: S1 normal heart sound present, S2 normal heart sound present, no gallops, no murmurs and no rubs Peripheral pulses: Peripheral pulses 2+ throughout GI Inspection: Yes normal to inspection Neuro General: patient oriented x3 Extrem General: Yes normal to inspection Psych Appearance: grossly normal Mental Status: mental status grossly normal Speech and movement: Normal speech and movement present Office Procedures EKG Details: EKG shows sinus bradycardia at 44 beats per minute with low amplitude P wave which could suggest atrial myopathy. [id number], Complete Assessment & Plan Assessment & Plan (1) Sinus bradycardia: Code(s): R00.1 - Bradycardia, unspecified Category: Medical Plan: Patient noticed to have significant sinus bradycardia on low-dose metoprolol therapy. Overall suggestive of sinoatrial robinson dysfunction. She has no clear significant symptoms related to it at this point time. Will loud secondary causes such as hypothyroidism. Will check TSH. I would suggest her to stop metoprolol completely. Follow-up event monitor in 1 month's time to see if she has persistent significant sinus bradycardia and/or other signs of significant sinoatrial robinson dysfunction that might need pacing. This was discussed with our. At this point time she does not need pacing therapy. (2) Paroxysmal atrial fibrillation: Code(s): I48.0 - Paroxysmal atrial fibrillation Category: Medical Plan: Paroxysmal atrial fibrillation without any obvious clinical recurrence at this point time. Stopping metoprolol therapy as above. Avoidance of stimulants was discussed. Stress mitigation strategies was discussed. Continue aggressive blood pressure control which is currently well optimized. Currently on full oral anticoagulation with Xarelto will continue the same. Semi annual renal function test should be pursued. (3) CAD (coronary artery disease): Comment: nonobstructive by cardiac catheterization Code(s): I25.10 - Atherosclerotic heart disease of [place] coronary artery without angina pectoris Category: Medical Plan: Nonobstructive CAD without any significant symptoms at current point time. Continue aggressive risk factor modification. Currently on full oral anticoagulation with Xarelto and will therefore avoid aspirin therapy. Continue high-intensity statin therapy with target goal LDL less than 70 mg/dL. Blood pressure is currently well optimized. Encouraged to continue to participate in lifestyle modification. Will follow up in the clinic in 1 year's time, sooner p.r.n.. Thank you for allowing me to partake in her care Orders: Orders Basic Metabolic Panel Today R00.1 - Bradycardia, unspecified Complete Blood Count no Diff Today R00.1 - Bradycardia, unspecified TSH reflex Free T4 Today R00.1 - Bradycardia, unspecified ECG 30 day event monitor 1 Month R00.1 - Bradycardia, unspecified CA echo transthoracic complete 1 Month I48.0 - Paroxysmal atrial fibrillation Coding Level of Care Code Est Pt Level 4 (55713) Complex EM visit Add On G2211 Diagnoses Sinus bradycardia R00.1 Paroxysmal atrial fibrillation I48.0 CAD (coronary artery disease) I25.10 CPT Codes EKG - CPT: 37223-[id number], Complete ([id number])
--- OUTSIDE RECORDS SUMMARY | 2025-02-22 11:00 | XMS_ITS | Patient Health Record ---
Author Organization [facility] Nadiaelroy Fofana Address [address] [place] [address] Care Team Providers Care Clinical Resource Director Name Role Phone Darius Duran MD Primary Care Provider Ronda Morel Unavailable [phone] Allergies Allergen (clinical drug ingredient) Drug/Non Drug [...] atherosclerosis of arteries of lower limbs (disorder) ([id number] ) Unspecified atherosclerosis of [place] arteries of extremities, bilateral legs (I70.203) Active confirmed Problem Atherosclerosis of artery of both lower extremities (I70.203) Active confirmed Vital Signs Blood pressure diastolic 67 mm Hg 11/26/2024 Height 5ft in 11/26/2024 Blood pressure systolic 118 mm Hg 11/26/2024 Weight 204 lbs 11/26/2024 BMI 39.84 kg/m2 11/26/2024 Encounters Encounter Location Date Provider Diagnosis [facility] [place] [address] [place] [address] 05/18/2024 Ronda Graf Unspecified atherosclerosis of [place] arteries of extremities, bilateral legs I70.203 ; Tinea unguium B35.1 ; Pain in right toe(s) M79.674 and Pain in left toe(s) M79.675 [facility] [address] 08/27/2024 Ronda Graf Unspecified atherosclerosis of [place] arteries of extremities, bilateral legs I70.203 ; Xerosis of skin L85.3 ; Tinea unguium B35.1 ; Pain in right toe(s) M79.674 and Pain in left toe(s) M79.[address] [address] 11/26/2024 Ronda Graf Xerosis of skin L85. 3 ; Tinea unguium B35.1 ; Unspecified atherosclerosis of [place] arteries of extremities, bilateral legs I70.203 ; Pain in right toe(s) M79.674 and Pain in left toe(s) M79.675 Assessments Encounter Date Diagnosis (ICD Code) Assessment Notes Treatment Notes Treatment Clinical Notes Section Notes 05/18/2024 Unspecified atherosclerosis of [place] arteries of extremities, bilateral legs (ICD-10 - I70.203) 08/27/2024 Unspecified atherosclerosis of [place] arteries of extremities, bilateral legs (ICD-10 - I70.203) 08/27/2024 Xerosis of skin (ICD-10 - L85.3) 11/26/2024 Tinea unguium (ICD-10 - B35.1) 11/26/2024 Xerosis of skin (ICD-10 - L85.3) 11/26/2024 Unspecified atherosclerosis of [place] arteries of extremities, bilateral legs (ICD-10 - I70.203) 08/27/2024 Tinea unguium (ICD-10 - B35.1) 05/18/2024 Tinea unguium (ICD-10 - B35.1) 08/27/2024 Pain in right toe(s) (ICD-10 - M79.674) 05/18/2024 Pain in right toe(s) (ICD-10 - M79.674) 11/26/2024 Pain in right toe(s) (ICD-10 - M79.674) 11/26/2024 Pain in left toe(s) (ICD-10 - M79.675) 05/18/2024 Pain in left toe(s) (ICD-10 - M79.675) 08/27/2024 Pain in left toe(s) (ICD-10 - M79.675) Plan Of Treatment Pending Test Test Name Order Date [id number] NAIL, 6 OR MORE 12/12/2017 [id number] NAIL, 6 OR MORE 03/06/2018 [id number] NAIL, 6 OR MORE 05/13/2018 [id number] SKIN LESIONS, OVER 4 12/13/19 18 [id number]-JEIJ SKIN LESIONS, OVER 4 05/13/20 18 [id number] SKIN LESIONS, OVER 4 03/06/20 18 Next Appt Details Provider Name:Ronda hill, 03/08/2025 09:30:00 AM, [address] [place], [address], Insurance Providers Payer Name Payer Address Payer Phone Subscriber Number Group Number Insured Name Patient Relationship to Insured Coverage Start Date Coverage End Date [employer] [place] Medicare [employer]vantage [facility] [address] [place] [address] [phone] [id number] Ayse Young Self - patient is the [...] History Reason Date(Month/Year) [facility] [facility] [place] [facility] [place] [facility], [place] [facility] [place] rectal bleeding/hemmoroid 9
--- OUTSIDE RECORDS SUMMARY | 2025-02-22 11:00 | XMS_ITS | Patient Health Record ---
Author Organization [facility] Address [address] [place] [address] Care Team Providers Care Associate Professor Of Media Arts Name Role Phone Erick Dominguez MD Primary Care Provider Guy Tovar Jr Unavailable Reason For Referral No Information Medications Medication [...] W/U Status Risk Notes Problem Esophageal reflux (772480671) Esophageal reflux (530.81) Active confirmed Problem Colon cancer screening (146856259) Colon cancer screening (V76.51) Active confirmed Plan Of Treatment Future Test Test Name Order Date COLONOSCOPY 09/23/2012 Insurance Providers Payer Name Payer Address Payer Phone Subscriber Number Group Number Insured Name Patient Relationship to Insured Coverage Start Date Coverage End Date [facility] [email or web address] [facility] [address] [address] [place], [place] [phone] [id number] LUCIO COWART Self - patient is the insured Medical (General) History Medical History History ICD Code gerd glaucoma Surgical History Surgery Date(Month/Year) hysterectomy for abnormal uterine bleedi ng Left knee replacement Carpal tunnel
== END 2025-02-22 11:00 | disposition home or self-care (01) ==
PROVIDERS: PCP Nurse Practitioner Family; Visit Provider Internal Medicine Cardiovascular Disease
DX: R00.1 Bradycardia, unspecified (principal); I48.0 Paroxysmal atrial fibrillation; I25.10 Atherosclerotic heart disease of native coronary artery without angina pectoris
CPT/HCPCS: 93010; 99214; G2211

== ENCOUNTER 2025-02-22 10:20 | Outpatient (REF) | payer MEDICARE, SELFPAY ==
[2025-02-22 12:42] LABS: Hematocrit 42.0 % (37.0-47.0); Hemoglobin 13.8 g/dl (12.0-16.0); Mean Corpuscular HGB Conc 32.9 g/dl (31.0-35.0); Mean Corpuscular Hemoglobin 32.3 pg (27.0-33.0); Mean Corpuscular Volume 98.4 fL (80.0-98.0); NRBC Abs Auto 0.000 X10*3/uL (0.0-0.012); NRBC Pct Auto 0.0 /100WBC (0.0-0.2); Platelet Count 211 X10*3/uL (160-400); Red Blood Count 4.27 X10*6/uL (4.20-5.50); White Blood Count 5.9 X10*3/uL (4.8-10.8)
[2025-02-22 13:19] LABS: Anion Gap 11 (12-20); Blood Urea Nitrogen 19 mg/dL (9-16); Calcium 9.4 mg/dL (8.4-10.2); Carbon Dioxide 32 mmol/L (22-29); Chloride 104 mmol/L (96-108); Estimated Glomerular Filt Rate > 60; Potassium 4.0 mmol/L (3.3-5.1); Sodium 143 mmol/L (135-145)
== END 2025-02-22 10:21 | disposition home or self-care (01) ==
LOC: HO.LAB 10:20
PROVIDERS: PCP Family Medicine; Visit Provider Internal Medicine Cardiovascular Disease
DX: I48.0 Paroxysmal atrial fibrillation (principal); R00.1 Bradycardia, unspecified; I25.810 Atherosclerosis of coronary artery bypass graft(s) without angina pectoris; Z79.01 Long term (current) use of anticoagulants
CPT/HCPCS: 36415; 80048; 84443; 85027; 93005; 99212

== ENCOUNTER 2025-03-10 10:25 | Outpatient (AMB) | payer MEDICARE, SELFPAY ==
--- NOTE | 2025-03-10 10:27 | A.OFFVIS_ITS ---
Vital Signs 03/10/25 10:27 Height 5 ft Intake Visit Reasons: 6m/sz Accompanied by: Spouse Allergies amoxicillin (From AUGMENTIN) Allergy (Unknown, Verified 03/10/25 10:30) HIVES Medication List - Last Reconciled 03/10/25 by Akosua Campbell CNP atorvastatin 80 mg PO DAILY cholecalciferol (vitamin D3) 50 mcg PO DAILY hydrochlorothiazide 25 mg PO DAILY levetiracetam 250 mg PO DAILY levothyroxine 75 mcg PO DAILY rivaroxaban (Xarelto) 20 mg PO DAILY HPI Comments Details: 75-year-old woman with HTN, atrial fibbrilation, HLD and probably complex partia l seizures causing facial twitching, unreadiness and confusion. She was doing okay. No seizures or spells. She was taking levetiracetam daily. No medication side effects. Sleep was okay. [facility] Medical History (Updated 03/10/25 @ 10:30 by Akosua Campbell CNP) TIA (transient ischemic attack) Paroxysmal atrial fibrillation CAD (coronary artery disease) HTN (hypertension) Morbid obesity Surgical History Hx of knee surgery Hx of thyroidectomy Hx of hysterectomy Hx of cardiac cath Family History Father No problems noted. Mother No problems noted. Social History Alcohol intake: current Alcohol intake frequency: holidays/special occasions only Patient Tobacco Use Status: Never used Tobacco Review of Systems Const Denies chills, Denies daytime sleepiness, Denies difficulty sleeping, Denies fatigue, Denies fever(s), Denies frequent falls, Denies headache(s), Denies increased appetite, Denies poor appetite, Denies snoring, Denies weakness, Denies weight gain and Denies weight loss Eyes Denies loss of vision ENT Denies vertigo, Denies dizziness and Denies headache(s) Card Denies chest pain at rest, Denies chest pain with activity, Denies syncope, Denies leg edema and Denies palpitations Resp Denies snoring GI Denies constipation, Denies heartburn, Denies diarrhea and Denies nausea Denies urinary frequency, Denies urinary incontinence and Denies urinary urgency Musc Reports abnormal gait (balance difficulty), Denies numbness and Denies tingling Skin/Breast Denies dry skin and Denies rash Neuro Reports abnormal gait (balance difficulty), Denies vertigo, Denies dizziness, Denies syncope, Denies frequent falls, Denies headache(s), Denies lack of coordination, Denies loss of vision, Denies memory loss, Denies numbness, Denies restless legs, Denies seizure-like activity, Denies tingling, Denies paresthesias, Denies tremor(s) and Denies weakness Psych Denies anxiety, Denies depression, Denies auditory hallucinations, Denies memory loss, Denies visual hallucinations and Denies suicidal ideation Endo Denies fatigue and Denies palpitations Physical Exam Const Other: General Appearance:? normal, in no acute distress. Skin:? no rashes, no significant birthmarks. Heart:? S1, S2 normal, no murmurs. Lungs:? clear anteriorly and posteriorly. Extremities:? no edema. Psych:? alert, oriented, cognitive function intact, cooperative with exam. Neuro Other: Mental Status:?Normal attention, orientation, memory and affect.? Cranial Nerves:?Pupils are equal, round and reactive to light. External occular muscles are intact. Visual moreno are full. Face is symmetrical. Facial sensations are normal. Tongue is midline. Palate elevates symmetrically. Shoulder shrugging is normal. Hearing to bedside conversation is normal. Sensory Exam:?....? Coordination:?No ataxia,?no titubation.? Gait Exam: Slow and cautious. Extrapyramidal System:?No tremor, rigidity with normal facial expressions.? Pronator Drift:?Not present.? Involuntary Movements:?No tremors seen.? Speech:?Normal.? Results Reviewed Results Reviewed: Routine EEG at office in 2017: [facility] CT brain WO at [facility] in May 2016: [facility] Assessment & Plan Assessment & Plan (1) Complex partial seizure: Code(s): G40.209 - Localization-related (focal) (partial) symptomatic epilepsy and epileptic syndromes with complex partial seizures, not intractable, without status epilepticus Category: Medical Plan: Continue levetiracetam 250mg 1 tablet daily. Medications: Changed From levetiracetam 250 mg PO DAILY To levetiracetam 250 mg PO DAILY 90 tabs 1RF 90 days Coding Level of Care Code Est Pt Level 4 (69340) Diagnoses Complex partial seizure G40.209
== END 2025-03-10 10:52 | disposition home or self-care (01) ==
LOC: HO.HSM 10:26
PROVIDERS: Referring Provider Hospitalist; Visit Provider Registered Nurse
DX: G40.209 Localization-related (focal) (partial) symptomatic epilepsy and epileptic syndromes with complex partial seizures, not intractable, without status epilepticus (principal)
CPT/HCPCS: 99214

== ENCOUNTER → 2025-03-10 10:25 | Outpatient (BNVA) | payer MEDICARE, SELFPAY | PROVIDERS: Referring Provider Hospitalist; Visit Provider Registered Nurse | DX: G40.209 Localization-related (focal) (partial) symptomatic epilepsy and epileptic syndromes with complex partial seizures, not intractable, without status epilepticus (principal) | CPT/HCPCS: 99212 ==

== ENCOUNTER → 2025-04-15 12:21 | Outpatient (REF) | payer MEDICARE, SELFPAY ==
--- OUTSIDE RECORDS SUMMARY | 2023-10-17 05:00 | XMS_ITS ---
Author Organization [facility] Address [address] [place] [id number] Care Team Providers Care Corporate Treasury Analyst Name Role Phone Roger MILLER, Darius Primary Care Provider UnaRonda Arzate Unavailable [phone] Encounters Encounter Location Date Provider Diagnosis [address] [id number] 10/17/2023 Ronda Graf Plan Of Treatment Next Appt Details Provider Name:Ronda hill, 06/15/2025 10:00:00 AM, [address] [place] [address], [id number], Progress Notes * Ayse MANDELDOB:1949 (75 yo F)Acc No.[id number]:10/17/2023 Progress Note Patient: Ayse WEI Provider: Mary Graf DPM :1950 A ge:73 Y S ex:Female Date:10/17/2023 Address:[address] [place], [place] [id number] Pcp:Darius Duran MD Subjective: * Chief Complaints: * * Medical History: Objective: * Vitals: Assessment: Plan: * Treatment: * Images: * The named appointment provid er may or may not be the originator of this progress note, and it is not deemed complete until electronically signed by the appointment provider. Sign off status: Pending * Provider: Mary Graf DPM Date: 0 10/17/2023 Generated for Reese jones/Collette/Suad on: 1 02:54 PM EDT
--- NOTE | 2025-04-15 12:25 | CA_ITS ---
Transthoracic Echocardiogram Patient (Last, First, Middle): Ayse Corona M Gender: F Date of : 1950 Age: 75 Procedure Date: 04/15/2025 Procedure Type: Transthoracic Echocardiogram Location: OP Height: 152.4 cm Weight: 93.9 kg BSA: 1.89 m2 Heart Rate: 56 bpm BP: 120 / 76 mmHg Computer Assistant: SB Referring MD: Leoncio Carpio MD Symptoms: I48.0 - Paroxysmal atrial fibrillation Study Quality: Adequate ECG Rhythm: Bradycardia Conclusions: - Normal left ventricular size, thickness, systolic function, and wall motion. The visually estimated ejection fraction is between 55-60%. - E/E prime ratio is >15, consistent with elevated filling pressures. - Normal right ventricular cavity size and systolic function. Findings Left Ventricle Normal left ventricular size, thickness, systolic function, and wall motion. The visually estimated ejection fraction is between 55-60%. Abnormal diastolic function is noted. Spectral Doppler is indicative of a pseudonormal filling pattern. E/E prime ratio is >15, consistent with elevated filling pressures. Right Ventricle Normal right ventricular cavity size and systolic function. There is a prominent moderator band seen in the right ventricle. Atria The left atrium is normal in size. The right atrium is normal in size. Aortic Valve Normal aortic valve structure and function. There is no aortic valve stenosis. There is no aortic valve regurgitation. Mitral Valve The mitral valve appears normal. There is trace mitral valve regurgitation. There is no mitral valve stenosis. Pulmonic Valve The pulmonic valve is likely normal. Tricuspid Valve Normal tricuspid valve structure. There is trace tricuspid valve regurgitation. Normal right atrial pressure. There is no evidence of pulmonary hypertension. Great Vessels All visible segments of the aorta are normal in size. Venous The inferior vena cava is normal in size and collapses greater than 50% with inspiration. Pericardium/Pleural There is no evidence of pericardial effusion. Prior Study Comparison No significant change compared to prior study dated: 12/02/2023. Measurements 2D Linear Measurements IVSd: 0.76 0.6-0.9/0.6-1.0 cm LVIDd: 4.88 3.9-5.3/4.2-5.9 cm LVIDd Index: 2.58 2.4-3.2/2.2-3.1 cm/m2 LVIDs: 2.84 2.0-3.6 cm LVPWd: 0.74 0.7-1.1 cm LA Diam: 3.40 2.7-3.8/3.0-4.0 cm LAIDs Index: 1.80 1.5-2.3 cm/m2 LV Mass: 149.22 67-162/88-224 g LV Mass Index: 78.95 43-95/49-115 g/m2 LVOT Diam: 1.80 3.0+(-)1.3 cm 2D Systolic Function EF 4C: 66.80 >55% EF 2C: 69.00 >55% EF BiP: 66.50 >55% Mitral Valve MV Pk E: 1.06 MV PK A: 0.73 MV Decel Time: 165.00 E/A: 1.40 E'Lateral: 6.85 E'Medial: 4.90 E/E' Med: 21.60 E/E' Lat: 15.50 PHT: 48.00 MVA PHT: 4.58 Decel Norman: 6.42 Aortic Valve AoV Pk Sloan: 1.58 AoV Mn Sloan: 1.12 AoV VTI: 0.36 AoV Pk Grad: 10.00 Aov Mn Grad: 6.00 MIKE Cont.VTI: 1.81 LVOT LVOT Pk Sloan: 1.08 LVOT Mn Sloan: 0.76 LVOT VTI: 0.26 LVOT Pk Grad: 5.00 LVOT Mn Grad: 3.00 LVOT Diam: 1.80 LVOT Area: 2.54 Diastolic Function MV Pk E: 1.06 MV Pk A: 0.73 E/A: 1.40 E'Medial: 4.90 E/E' Med: 21.60 E' Laterial: 6.85 E/E' Lat: 15.50 Right Ventricle TAPSE (mm): 25.70 TVS' Sloan: 12.30 Tricuspid Valve TR Pk Sloan: 2.76 TR Pk Grad: 30.00 RA Press: 3.00 RVSP: 33.00 Great Vessels Aorta Sinus of Valsalva: 3.00 2.0-3.5 cm Ao Asc: 3.20 2.1-3.4 cm Ao Arch: 3.10 Pulmonary Veins Pulm Vein S/D 1.60 Pulmonary Valve PV Pk Sloan: 0.94 Peak PV Grad: 4.00 Updated in Other Vendor System with Status of Final Sy Ruiz MD electronically signed on 04/20/2025 12:16:06 PM with status of Final
--- OUTSIDE RECORDS SUMMARY | 2025-04-15 14:54 | XMS_ITS | Data Portability ---
Author Organization [place] [facility] Address [address] [place] [address] Assessment Encounter Date Assessment Date Assessment LastModified by Organization Details LastModified Time 10/02/2020 10/02/2020 History and overview 70yoF new to pmhx HTN, HDL, CA, CVA, seizure disorder is seen for sore throat, cough and diarrhea. No fever. No cp or sob. No abdominal pain. No hematochezia or melena. Patient denies any nausea, vomiting or dysuria. No loss of appetite. No loss of sense of taste or smell. No known sick contact but the patient was at the movies over the weekend. Patient is on the waiting list for the covid vaccine. Exam VSS patient non toxic appearing heart and lung sounds clear abdomen soft and non tender DDx covid viral illness pneumonia PE doubt as no signs of DVT and patient not tachycardic or hypoxic acutre intra abbdominal pathology-doubt as patient afebrile without any abdominal pain Work up and results covid test pending cxr pending Assessment and plan Patient is hemodynamically stable non toxic appearing. Likely has a viral illness vs covid. Will follow up on covid results. CXR ordered to eval for underlying pna. Precautions given to again seek care if she develops a fever, cp, so, abdominal pain or feels light headed. She verbalized understanding and was agreeable. Patient will continue to isolate until she has her covid results. Time On Scene with Patient: 00:22:17 [email or web address] Not available 10/02/2020 17:19:43 Plan of Treatment Reminders Order Date Submit Date Provider Last Modified By Organization Details Last Modified Time Details Appointments None recorded. 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 Procedures None recorded. Surgeries None recorded. Imaging XR, chest, 2 view 2020 021 [facility] ([facility] [address], [place], [place], [address], 12:46:38 Medication Orders None recorded. Patient TargetsNo targets recorded. Patient Instructions Encounter Date Encounter Id Patient Instructions Last Modified By Organization Details Last Modified Time 10/02/2020 [id number] VITALS: Temp 97. 6 Pulse 60 BP 112/66 O2 99% YOU WERE TESTED FOR COVID TODAY WE WILL CALL IN 2-4 DAYS WITH THE RESULTS CONTINUE TO ISOLATE UNTIL WE HAVE THE RESULTS I ALSO ORDERED A CHEST XRAY THAT WILL BE PERFORMED IN YOUR HOUSE WE WILL ALSO CALL WITH TOSE RESULTS IF YOU DEVELOP A FEVER, WORSENED COUGH, CHEST PAIN, SHORTNESS OF BREATHE, ABDOMINAL PAIN OR FEEL YOU ARE GOING TO PASS OUT PLEASE AGAIN SEEK IMMEDIATE CARE [email or web address] Not available 10/02/2020 16:59:35 Reason for Referral None Reported. Results Created Date Observation Date Name Description Value Unit Range Abnormal Flag Note LastModifiedBy Organization Detail LastModifiedTime 10/03/1910/02/2020 covid -19 (nove l coron aviru s) PCR covid-19 PCR specimen source NASAL Not Available [facility] (Centralized Electronic Ordering - All Locations) Patient Can Go To The Location Of Their Choice, [id number] 10/03/2020 16:57:19 10/03/1910/03/2020 covid -19 (nove l coron aviru s) PCR covid-19 PCR result (neg) NEGAT LILIBETH 2018- novel Coron aviru s (2018 -nCoV ) not detec jc by real- time RT-PC R. Note: If clini diana suspi cion for COVID -19 is high, daisy nue to maint ain preca ution s and consi yonis repea t testi ng. Resul t repor jc to the [facility]. To preve nt error s in diagn osis, test resul ts shoul d be inter prete d in the dalia xt of clini diana findi ngs and other labor atory data. Rare polym orphi sms exist that could lead to false -nega tive or false -posi tive resul ts. If resul ts obtai hiral do not match the clini diana findi ngs, addit ional testi ng shoul d be consi dered . This test has been autho rized by the FDA under an Emerg ency Use Autho rizat ion (EUA) for use by autho rized labor atori es. Testi ng perfo rmed by real time PCR utili [employer] SARS- CoV-2 test. Not Available [facility] (Centralized Electronic Ordering - All Locations) Patient Can Go To The Location Of Their Choice, [id number] 10/03/2020 16:57:19 10/04/19 21 10/03/2020 XR, chest , 2 view XRAY CHEST 2 VIEW FINDIN GS: Lungs: No focal consol idatio n. Pulmon luann vascul ature is within normal limits . Promin ent lung markin gs. Pleura : No pneumo thorax . No pleura l effusi on. Heart and Medias tinum: The cardio medias tinal silhou ette is enlarg ed in size and contou r. Osseou s struct ures: Visual ized osseou s struct ures are stable . No radiop aque foreig n body. CONCLU TAO: No acute cardio pulmon luann proces s. ELECTR ONICAL LY SIGNED BY PARVEZ ANN M.D. 10/04/19 12:40: 46 PM EDT. XRAY CHEST 2 VIEW Result s: Lungs: No focal consol idatio n. Pulmon luann vascul ature is within normal limits . Promin ent lung markin gs. Pleura : No pneumo thorax . No pleura l effusi on. Heart and Medias tinum: The cardio medias tinal silhou ette is enlarg ed in size and contou r. Osseou s struct ures: Visual ized osseou s struct ures are stable . No radiop aque foreig n body. Conclu tao: No acute cardio pulmon luann proces s. Electr onical ly signed by PARVEZ ANN M.D. 10/04/19 12:40: 46 PM EDT. [email or web address] [facility]) [address] , [place], [address], 10/03/2020 17:36:55 Result Notes Documentation Provider Name and Address Organization Details Recorded Time Xr, Chest, 2 View : XRAY CHEST 2 VIEW FINDINGS: Lungs: No focal consolidation. Pulmonary vasculature is within normal limits. Prominent lung markings. Pleura: No pneumothorax. No pleural effusion. Heart and Mediastinum: The cardiomediastinal silhouette is enlarged in size and contour. Osseous structures: Visualized osseous structures are stable. No radiopaque foreign body. CONCLUSION: No acute cardiopulmonary process. ELECTRONICALLY SIGNED BY STEVEN ANN M.D. 10/03/2020 12:40:46 PM EDT. XRAY CHEST 2 VIEW Results: Lungs: No focal consolidation. Pulmonary vasculature is within normal limits. Prominent lung markings. Pleura: No pneumothorax. No pleural effusion. Heart and Mediastinum: The cardiomediastinal silhouette is enlarged in size and contour. Osseous structures: Visualized osseous structures are stable. No radiopaque foreign body. Conclusion: No acute cardiopulmonary process. Electronically signed by STEVEN ANN M.D. 10/03/2020 12:40:46 PM EDT. Cori Bueno NP [address] [place], [address], [place] [facility] 10/03/2020 17:36:55 Procedures Surgical History Date Name Laterality Status Provider Name and Address Organization Details Recorded Time Remove tonsils and adenoids completed [place] [address] [place], [address], [place] [facility] 10/02/2020 16:50:34 arthroplasty of knee completed [place] AR[place] [address] [place], [address], [place] [facility] 10/02/2020 16:50:43 Carpal tunnel surgery completed [place] ARRI[place] [address], [place], [address], [place] [facility] 10/02/2020 16:50:50 hysterectomy completed [place] AR[place] [address], [place], [address], [place] [facility] 10/02/2020 16:50:59 Imaging Results None recorded. Procedure Notes None recorded. Medical Equipment None Reported. Medications Name Sig Start Date Stop Date Status Note LastModified by Organization Details LastModified Time latanoprost 0.005 % eye drops active Not Available Not Available Not Available atorvastatin 80 mg tablet active Not Available Not Available No t Available Levoxyl 88 mcg tablet active Not Available Not Available Not Available doxycycline hyclate 100 mg capsule 10/02 completed Not Available Not Available Not Available dexamethasone sodium phosphate 0.1 % eye drops active Not Available Not Availa ble Not Available levothyroxine 75 mcg tablet active Not Available Not Available N ot Available ketorolac 0.5 % eye drops active Not Available Not Available No t Available levetiracetam 250 mg tablet active Not Available Not Availabl e Not Available oseltamivir 75 mg capsule active Not Available Not Available N ot Available nystatin 100,000 unit/gram topical cream 10/02 completed Not Available Not Available Not Available warfarin 5 mg tablet active Not Available Not Available Not Available nitroglycerin 0.4 mg sublingual tablet active Not Available Not Available Not Available hydrochlorothiaz masoud 25 mg tablet active Not Available Not Avail able Not Available albuterol sulfate HFA 90 mcg/actuation aerosol inhaler active Not Available Not Availa ble Not Available ipratropium bromide 42 mcg (0.06 %) nasal spray active Not Available Not Available Not Available metoprolol tartrate 25 mg tablet active Not Available Not Available Not Available Vitals Date Recorded Body temperature Heart rate Oxygen saturation Oxygen saturation in Arterial blood by Pulse oximetry Respiratory rate Systolic And Diastolic Provider Name and Address Organization Details Last Updated DateTime 97.6 [degF] 60 /min 99 % 99 % 22 /min 112/66 mm[Hg] Not Available [facility] 16:48[facility]20 Social History Question Answer Notes LastModified by Organizat ion Details LastModified Time Tobacco Smoking Status Never Smoker [place] AR[place] [address], [place], [address], [place] [facility] 10/02/2020 16:49:21 Do You Have An Advance Directive? No [email or web address] Information not available 10/02/2020 What Is Your Code Status? Full Code [email or web address] Information not available 10/02/2020 Within The Past 12 Months, Has It Happened That The Food You Bought Just Didn't Last And You Didn't Have Money To Get More. No [email or web address] Information not available 10/02/2020 Within The Past 12 Months, Have You Worried That Your Food Would Run Out Before You Got Money To Buy More. No [email or web address] Information not available 10/02/2020 Fall Risk: Do You Feel Unsteady When Standing Or Walking? No Information not available 10/02/2020 We Know That How And When People Interact With Friends And Family Can Be Very Different From Person To Person. How Often Do You Have The Opportunity To See Or Talk To People That You Care About And Feel Close To? (Ex: Talking To Friends On The Phone Or Visiting Friends Or Family Or Going To Evangelical Or Club Meetings) 5 Or More Times Per Week [email or web address] Information not available 10/02/2020 Excessive Alcohol Or Drug Use No [email or web address] Information not available 10/02/2020 We Know From Many Of Our Patients That Covering All Of Their Costs Can Be Difficult At Times. This Can Cause Stress And Impact Health. In The Past Year, Have You Been Unable To Get Any Of The Following When It Was Really Needed? No [email or web address] Information not available 10/02/2020 What Is Your Housing Situation Today? I Have Housing [email or web address] Information not available 10/02/2020 Would You Like Help Connecting To Resources? None [email or web address] Information not available 10/02/2020 Sex: Unknown Functional Status None recorded. Mental Status None recorded. Family History Relationship Description Onset Age of this Age Resolved Age Notes LastModified by Organization Details LastModified Time Father Malignant neoplasm of colon [email or web address] Not available 2020 16:49:16 Medical History Condition Response Diabetes N Coronary Artery Disease Y High Cholesterol Y Pulmonary Embolism N Cancer N Stroke Y Hypertension Y Depression N COPD N Asthma N Kidney Disease N Gynecological HistoryNo gynecological history recorded. Obstetrics History GPAL:G 0 P 0 0 0 0 Past Encounters Encounter ID Performer Location Encounter Start Date Encounter Closed Date Diagnosis/Indication Diagnosis SNOMED-CT Code Diagnosis ICD10 Code Diagnosis IMO Codes Diagnosis Note [id number] [place] [address] [place] [address] 10/02/2020 16:08:34 10/04/2020 18:43:57 Cough [id number] R05 Health Concerns Section Related Observation LastModified by Organization Detai ls LastModified Time None Recorded Concern Status LastModified by Organization Details LastModified Time None Recorded Advance Directives Directive N: Payers Insurance Date Sequence Insurance Name Policy Number Policy Bills Covered Member ID Bills Member ID Guarantor Name 10/04/2020 1 [place] [employer] Ayse Sykes [id number] Ayse Corona 10/05/2020 2 [facility] 1 (MEDICARE SUPPLEMENT) Ayse Lingnodutch [id number] Ayse Corona 10/02/2020 1 [employer] - MEDICARE ADVANTAGE PLAN (MEDICARE REPLACEMENT HMO) Ayse Sykes [id number] Ayse Corona 10/02/2020 1 *SELF PAY* Ayse Sykes [id number] Ayse Corona 07/09/2021 1 [employer] [place] - MEDICARE ADVANTAGE PLAN (MEDICARE REPLACEMENT HMO) [id number] Ayse Lingnoanant [id number] Ayse Lingnoanant 07/09/2021 1 [place] [employer] Ayse Corona [id number] Ayse Lingnoanant 07/09/2021 1 [employer] [place] - MEDICARE ADVANTAGE PLAN (MEDICARE REPLACEMENT HMO) [id number] Ayse Lingnoyer [id number] Ayse Lingnoanant 07/09/2021 2 [employer] [place] - MEDICARE ADVANTAGE PLAN (MEDICARE REPLACEMENT HMO) [id number] Ayse Lingnoanant [id number] Ayse Lingnoyer 07/09/2021 1 [place] [employer] [place] Ayse Corona [id number] Ayse Corona Notes Date Note Type Note Provider Name and Address Organization Details Recorded Time 10/02/2020 text/html 70yoF new to pmhx HTN, HDL, CA, CVA, seizure disorder is seen for sore throat, cough and diarrhea. No fever. No cp or sob. No abdominal pain. No hematochezia or melena. Patient denies any nausea, vomiting or dysuria. No loss of appetite. No loss of sense of taste or smell. No known sick contact but the patient was at the movies over the weekend. Patient is on the waiting list for the covid vaccine. [place] [address] [place], [address], [place] [facility] 10/02/2020 17:19:50 OBGyn Episode No OBEpisode recorded.
--- OUTSIDE RECORDS SUMMARY | 2025-04-15 14:55 | XMS_ITS | Patient Health Record ---
Author Organization [facility] Address [address] [place] [address] Care Team Providers Care Candy Puller Name Role Phone Erick Dominguez MD Primary Care Provider Guy Tovar Jr Unavailable Reason For Referral No Information Medications Medication SIG (Take, Route, Fr equency, Duration) Notes Start Date End Date Status Suprep Bowel Prep 1 as directed Orally 1 ; Duration: 1 dose 09/23/2012 06/30/2024 Active Fish Oil [...] W/U Status Risk Notes Problem Esophageal reflux (909316600) Esophageal reflux (530.81) Active confirmed Problem Colon cancer screening (147681476) Colon cancer screening (V76.51) Active confirmed Plan Of Treatment Future Test Test Name Order Date COLONOSCOPY 09/23/2012 Insurance Providers Payer Name Payer Address Payer Phone Subscriber Number Group Number Insured Name Patient Relationship to Insured Coverage Start Date Coverage End Date [facility] [facility] [address] [address] [place], [place] [id number] LUCIO COWART Self - patient is the insured Medical (General) History Medical History History ICD Code gerd glaucoma Surgical History Surgery Date(Month/Year) hysterectomy for abnormal uterine bleedi ng Left knee replacement Carpal tunnel
--- OUTSIDE RECORDS SUMMARY | 2025-04-15 14:55 | XMS_ITS | Patient Health Record ---
Author Organization [facility] Nadiaelroy Fofana Address [address] [place] [address] Care Team Providers Care Vessel Specialist Name Role Phone Darius Duran MD Primary Care Provider Ronda Morel Unavailable [phone] Allergies Allergen (clinical drug ingredient) Drug/Non Drug Allergy documented on EMR Reaction Allergy Type Onset Date Status amoxicillin / clavulanate Augmentin Rapid Heart Rate Drug Allergy Active lisinopril Lisinopril Cough Drug Allergy Activ e Reason For Referral No Information Medications Medication SIG (Take, Route, Frequency, Duration) Notes Start Date End Date Status Ammonium Lactate 12 % 1 application Externally to affected areas of dry skin to feet except for between the toes Twice a day; Duration: 30 days Active Sinus & Allergy PRN Not- Taking Eliquis 5 MG as directed Orally Not-Taking dexAMETHasone Not-Ta levon Vitamin D2 Active Ketorolac Tromethamine 0.5 % 1 drop into affected eye as needed Ophthalmic Four times a day Not-Taking Xarelto 20 MG 1 tablet with food Orally Once a day; Duration: 30 day(s) Active Vitamin D3 125 MCG (5000 UT) as directed Orally Not-Taking Metoprolol Tartrate 25 MG 1 tablet with food Orally Twice a day; Duration: 30 day(s) Not-Taking Latanoprost 0.005 % 1 drop into affected eye in the evening Ophthalmic Once a day Not-Taking hydroCHLOROthiazide 25 MG Orally Active Albuterol Sulfate HFA 108 (90 Base) MCG/ACT 1 puff as needed Inhalation every 4 hrs Not-Taking Atorvastatin Calcium 80 MG 1 tablet Oral ly Once a day; Duration: 30 day(s) Active Levothyroxine Sodium 75 MCG 1 tablet in the morning on an empty stomach Orally Once a day; Duration: 30 day(s) Active levETIRAcetam 250 MG as directed Orally once a day Active Biotin Not-Taking Ammonium Lactate 12 % 1 application to affected area Externally to feet Twice a day; Duration: 30 days Not-Taking Warfarin Sodium 5 MG Orally Not-Taking Vitamin D3 Not-Takdonaldo medrano Levoxyl 75 MCG 1 tablet in the morning on an empty stomach Orally Once a day; Duration: 30 day(s) Not-Taking Aspirin 81 MG Orally Not-Ta levon Propafenone HCl ER 225 MG Orally twice a day Not-Taking Ciclopirox Olamine 0.77 % 1 application to affected area Externally Twice a day; Duration: 30 days Not-Taking Immunizations Vaccine Route Administration Date Status Comme nts Influenza Unknown 02/29/2024 Administered COVID-19 Pfizer BioNTech Vaccine Unknown 10/28/2020 Administered [...] Are you an other tobacco user? No AUDIT-C (Standard) Question Answer Notes Did you have a drink containing alcohol in the p ast year? No Points 0 Interpretation Negative Problems Problem Type SNOMED Code ICD Code Onset Dates Problem Status W/U Status Risk Notes Problem Bilateral atherosclerosis of arteries of lower limbs (disorder) (11872708818010362 ) Unspecified atherosclerosis of [place] arteries of extremities, bilateral legs (I70.203) Active confirmed Problem Bilateral atherosclerosis of arteries of lower limbs (disorder) (90769250589751238 ) Atherosclerosis of artery of both lower extremities (I70.203) Active confirmed Vital Signs Blood pressure diastolic 65 mm Hg 03/08/2025 Height 5ft in 03/08/2025 Blood pressure systolic 117 mm Hg 03/08/2025 Weight 210 lbs 03/08/2025 BMI 41.01 kg/m2 03/08/2025 Encounters Encounter Location Date Provider Diagnosis [facility] [place] [address] [place] [address] 05/18/2024 Ronda Perica Unspecified atherosclerosis of [place] arteries of extremities, bilateral legs I70.203 ; Tinea unguium B35.1 ; Pain in right toe(s) M79.674 and Pain in left toe(s) M79.[address] [address] 08/27/2024 Ronda Perica Unspecified atherosclerosis of [place] arteries of extremities, bilateral legs I70.203 ; Xerosis of skin L85.3 ; Tinea unguium B35.1 ; Pain in right toe(s) M79.674 and Pain in left toe(s) M79.[address] [address] 11/26/2024 Ronda Perica Xerosis of skin L85. 3 ; Tinea unguium B35.1 ; Unspecified atherosclerosis of [place] arteries of extremities, bilateral legs I70.203 ; Pain in right toe(s) M79.674 and Pain in left toe(s) M79.[address] [address] 03/08/2025 Ronda Perica Xerosis of skin L85. 3 ; Tinea unguium B35.1 ; Unspecified atherosclerosis of [place] arteries of extremities, bilateral legs I70.203 ; Pain in right toe(s) M79.674 and Pain in left toe(s) M79.675 Assessments Encounter Date Diagnosis (ICD Code) Assessment Notes Treatment Notes Treatment Clinical Notes Section Notes 05/18/2024 Unspecified atherosclerosis of [place] arteries of extremities, bilateral legs (ICD-10 - I70.203) 08/27/2024 Unspecified atherosclerosis of [place] arteries of extremities, bilateral legs (ICD-10 - I70.203) 08/27/2024 Xerosis of skin (ICD-10 - L85.3) 11/26/2024 Tinea unguium (ICD-10 - B35.1) 11/26/2024 Xerosis of skin (ICD-10 - L85.3) 03/08/2025 Tinea unguium (ICD-10 - B35.1) 03/08/2025 Xerosis of skin (ICD-10 - L85.3) 03/08/2025 Unspecified atherosclerosis of [place] arteries of extremities, bilateral legs (ICD-10 - I70.203) 11/26/2024 Unspecified atherosclerosis of [place] arteries of extremities, bilateral legs (ICD-10 - I70.203) 08/27/2024 Tinea unguium (ICD-10 - B35.1) 05/18/2024 Tinea unguium (ICD-10 - B35.1) 08/27/2024 Pain in right toe(s) (ICD-10 - M79.674) 05/18/2024 Pain in right toe(s) (ICD-10 - M79.674) 11/26/2024 Pain in right toe(s) (ICD-10 - M79.674) 03/08/2025 Pain in right toe(s) (ICD-10 - M79.674) 11/26/2024 Pain in left toe(s) (ICD-10 - M79.675) 03/08/2025 Pain in left toe(s) (ICD-10 - M79.675) 05/18/2024 Pain in left toe(s) (ICD-10 - M79.675) 08/27/2024 Pain in left toe(s) (ICD-10 - M79.675) Plan Of Treatment Pending Test Test Name Order Date [id number] NAIL, 6 OR MORE 12/12/2017 [id number] NAIL, 6 OR MORE 03/06/2018 [id number] NAIL, 6 OR MORE 05/13/2018 [id number] SKIN LESIONS, OVER 4 12/13/19 18 [id number] SKIN LESIONS, OVER 4 05/13/20 18 [id number] SKIN LESIONS, OVER 4 03/06/20 18 Next Appt Details Provider Name:Ronda hill, 06/15/2025 10:00:00 AM, [address] [place], [address], Insurance Providers Payer Name Payer Address Payer Phone Subscriber Number Group Number Insured Name Patient Relationship to Insured Coverage Start Date Coverage End Date [employer]vantage [address] [place] [address] [id number] Ayse Young Self - patient is the insured 3 Medical (General) History Medical History History ICD [...] History Reason Date(Month/Year) [facility]- [place] [facility] [facility] [place] [facility] [place] [facility], Heart [place] 01/2019 [facility] - rectal bleeding/hemmoroid 9
== END ==
LOC: HO.CARD 12:21
PROVIDERS: Visit Provider Internal Medicine Cardiovascular Disease
DX: R00.1 Bradycardia, unspecified (principal); I48.0 Paroxysmal atrial fibrillation
CPT/HCPCS: 93270; 93306

== ENCOUNTER → 2025-04-15 12:25 | Outpatient (BNV) | payer MEDICARE, SELFPAY | PROVIDERS: Visit Provider Internal Medicine Cardiovascular Disease | DX: I48.0 Paroxysmal atrial fibrillation (principal) | CPT/HCPCS: 93306 ==

== ENCOUNTER 2025-06-21 08:56 | Outpatient (REF) | payer MEDICARE, SELFPAY ==
--- OUTSIDE RECORDS SUMMARY | 2025-06-21 10:25 | XMS_ITS | Data Portability ---
Author Organization [place] [facility] Address [address] [place] [address] Assessment Encounter Date Assessment Date Assessment LastModified [...] results. Time On Scene with Patient: 00:22:17 [email or web address] Not available 10/02/2020 17:19:43 Plan of Treatment Reminders Order Date Submit Date Provider Last Modified By Organization Details Last Modified Time Details Appointments None recorded. Lab SARS CoV 2 RNA (COVID-19), QL, supervisor mold shop-PCR, respiratory specimen 04/05/ 2021 04/05/2 021 [facility] (Centralized Electronic Ordering - All Locations), Patient Can Go To The Location Of Their Choice, [address] 07:18:57 Referral None recorded. Procedures None recorded. Surgeries None recorded. Imaging XR, chest, 2 view 2020 021 [facility] ([facility] [address], [place], [place], [address], 12:46:38 Medication Orders None recorded. Patient TargetsNo targets recorded. Patient Instructions Encounter Date Encounter Id Patient Instructions Last Modified By Organization Details Last Modified Time 10/02/2020 [id number] VITALS: Temp 97. 6 Pulse 60 BP [...] PASS OUT PLEASE AGAIN SEEK IMMEDIATE CARE Not available 10/02/2020 16:59:35 Reason for Referral None Reported. Results Created Date Observation Date Name Description Value Unit Range Abnormal Flag Note LastModifiedBy Organization Detail LastModifiedTime 10/03/1910/02/2020 covid -19 (nove l coron aviru s) PCR covid-19 PCR specimen source NASAL Not Available [facility] (Centralized Electronic Ordering - All Locations) Patient Can Go To The Location Of Their Choice, [id number] 10/03/2020 16:57:19 10/03/1910/03/2020 covid -19 (nove l [...] ng. Resul t repor jc to the [facility]. To preve nt error s in [...] perfo rmed by real time PCR utili [employer] Niko Niko0 SARS- CoV-2 test. Not Available [facility] (Centralized Electronic Ordering - All Locations) Patient Can Go To The Location Of Their Choice, [id number] 10/03/2020 16:57:19 10/04/19 21 10/03/2020 XR, chest [...] ANN M.D. 10/04/19 12:40: 46 PM EDT. [email or web address] [facility] ([facility]) [address] , [place], [address], 10/03/2020 17:36:55 Result Notes Documentation Provider Name [...] 12:40:46 PM EDT. Cori Bueno NP [address] [place], [address], [place] [facility] 10/03/2020 17:36:55 Procedures Surgical History Date Name Laterality Status Provider Name and Address Organization Details Recorded Time Remove tonsils and adenoids completed [place] [address] [place], [address], [place] [facility] 10/02/2020 16:50:34 arthroplasty of knee completed [place] ARRIAZA [address] [place], [address], [place] [facility] 10/02/2020 16:50:43 Carpal tunnel surgery completed [place] ARRIAZA [address], [place], [address], [place] [facility] 10/02/2020 16:50:50 hysterectomy completed [place] ARRIAZA [address], [place], [address], [place] [facility] 10/02/2020 16:50:59 Imaging Results [...] Recorded Body temperature Heart rate Oxygen saturation Respiratory rate Systolic And Diastolic Provider Name and Address Organization Details Last Updated DateTime 97.6 [degF] 60 /min 99 % 22 /min 112/66 mm[Hg] Not Available [facility] 16:48:20 Social History Question Answer Notes LastModified by Organizat ion Details LastModified Time Tobacco Smoking Status Never Smoker [place] ARRIAZA [address], [place], [address], [place] [facility] 10/02/2020 16:49:21 Do You Have An Advance Directive? No Information not available 10/02/2020 What Is Your Code Status? Full Code [email or web address] Information not available 10/02/2020 Within The Past 12 Months, Has It Happened That The Food You Bought Just Didn't Last And You Didn't Have Money To Get More. No Information not available 10/02/2020 Within The Past 12 Months, Have You Worried That Your Food Would Run Out Before You Got Money To Buy More. No Information not available 10/02/2020 Fall Risk: Do You Feel Unsteady When Standing Or Walking? No [email or web address] Information not available 10/02/2020 We Know That How And When People Interact With Friends And Family Can Be Very Different From Person To Person. How Often Do You Have The Opportunity To See Or Talk To People That You Care About And Feel Close To? (Ex: Talking To Friends On The Phone Or Visiting Friends Or Family Or Going To [employer] Or Club Meetings) 5 Or More Times Per Week [email or web address] Information not available 10/02/2020 Excessive Alcohol Or Drug Use No [email or web address] Information not available 10/02/2020 We Know From Many Of Our Patients That Covering All Of Their Costs Can Be Difficult At Times. This Can Cause Stress And Impact Health. In The Past Year, Have You Been Unable To Get Any Of The Following When It Was Really Needed? No [email or web address] Information not available 10/02/2020 What Is Your Housing Situation Today? I Have Housing [email or web address] Information not available 10/02/2020 Would You Like Help Connecting To Resources? None [email or web address] Information not available 10/02/2020 Sex: Unknown Functional Status None recorded. Mental Status None recorded. Family History Relationship Description Onset Age of this Age Resolved Age Notes LastModified by Organization Details LastModified Time Father Malignant neoplasm of colon Not available 2020 16:49:16 Medical History Condition Response Coronary Artery Disease Y COPD N Depression N Cancer N Stroke Y High Cholesterol Y Kidney Disease N Diabetes N Asthma N Pulmonary Embolism N Hypertension Y Gynecological HistoryNo gynecological history recorded. Obstetrics History GPAL:G 0 P 0 0 0 0 Past Encounters Encounter ID Performer Location Encounter Start Date Encounter Closed Date Diagnosis/Indication Diagnosis SNOMED-CT Code Diagnosis ICD10 Code Diagnosis IMO Codes Diagnosis Note [id number] [place] ARRIAZA [facility] [address] [facility] [place] [place] [phone] 10/02/2020 16:08:34 10/04/2020 18:43:57 Cough 22272601 R05 Health Concerns Section Related Observation LastModified by Organization Detai ls LastModified Time None Recorded Concern Status LastModified by Organization Details LastModified Time None Recorded Advance Directives Directive N: Payers Insurance Date Sequence Insurance Name Policy Number Policy Bills Covered Member ID Bills Member ID Guarantor Name 10/04/2020 1 [place] B-[place]: [facility] Ayse Sykes [id number] Ayse Corona 10/05/2020 2 [facility] 1 (MEDICARE SUPPLEMENT) Ayse Lingnodutch [id number] Ayse Corona 10/02/2020 1 [employer] [place] - MEDICARE ADVANTAGE PLAN (MEDICARE REPLACEMENT HMO) Ayse Sykes [id number] Ayse Corona 10/02/2020 1 *SELF PAY* Ayse Sykes [id number] Ayse Corona 07/09/2021 1 [employer] [place] - MEDICARE ADVANTAGE PLAN (MEDICARE REPLACEMENT HMO) [id number] Ayse Corona [id number] Ayse Lingnoanant 07/09/2021 1 [place] [facility] Ayse Corona [id number] Ayse Corona 07/09/2021 1 [employer] [place] - MEDICARE ADVANTAGE PLAN (MEDICARE REPLACEMENT HMO) [id number] Ayse Lingnoanant [id number] Ayse Lingnoanant 07/09/2021 2 [employer] [place] - MEDICARE ADVANTAGE PLAN (MEDICARE REPLACEMENT HMO) [id number] Ayse Lingnoanant [id number] Ayse Lingnoanant 07/09/2021 1 [place] B[place] [facility] [employer] Ayse Corona [id number] Ayse Corona Notes Date Note Type Note [...] the covid vaccine. [place] [address] [place], [address], [place] [facility] 10/02/2020 17:19:50 OBGyn Episode No OBEpisode recorded.
[2025-06-21 14:38] LABS: Resp Syncy Virus RNA Qual PCR NEGATIVE (Negative); SARS COV2 PCR INHOUSE NEGATIVE (Negative)
== END 2025-06-21 08:57 | disposition home or self-care (01) ==
LOC: HO.LAB 08:56
PROVIDERS: Physician Assistant
DX: R09.89 Other specified symptoms and signs involving the circulatory and respiratory systems (principal); B34.9 Viral infection, unspecified; Z03.818 Encounter for observation for suspected exposure to other biological agents ruled out
CPT/HCPCS: 87637

== ENCOUNTER 2025-06-21 08:56 | Outpatient (AMB) | payer MEDICARE, SELFPAY ==
[2025-06-21 09:01] VITALS: BP 118/68; PULSE 80; RESP 18; O2SAT 100; BMI 40.0
--- NOTE | 2025-06-21 09:01 | AM.OFFWIN_ITS ---
Intake Vital Signs 06/21/25 09:01 Height 5 ft Weight 205 lb BMI 40.0 BP 118/68 Blood Pressure Location Rt brachial Position Sitting Respiration 18 Pulse 80 Pulse Source Pulse Oximeter Pulse Oximetry (%) 100 Oxygen Delivery Method Room Air Intake Visit Reasons: EP sweats, Dirrhea, cough, nausea, fever Intake Note: Pt is coming in reports fever, sweats, cough,diarrhea x 3weeks Patient Tobacco Use Status: Never used Tobacco Singing Telegram Performer Required: No Accompanied by: Self / Same As Patient Allergies amoxicillin (From AUGMENTIN) Allergy (Unknown, Verified 06/21/25 09:03) HIVES Do you need a note to return to daycare/school/sports/work: No HPI HPI Comments History of Present Illness Details History - The patient is a 75-year-old female pr esenting with symptoms of a viral illness x 1wk. - She reports having been sick with a vi anika for 2.5 weeks and was starting to recover very slowly. - Approximately one week ago, her sympto ms returned more severely after her son, who was ill, visited her. - Her current symptoms include a signifi cant cough, unmeasured subjective fever, and sweats, particularly waking up in a sweat. - She has also experienced diarrhea with black stools, poor oral intake as she is unable to retain food, and nausea. - The nausea is exacerbated by walking, at which point she feels as if she might pass out. - She has no prior history of a gastroin testinal bleed or black stools and is not taking Pepto-Bismol. - She reports her stool this morning was more solid and brown. - She has no history of COPD or asthma a nd denies smoking or vaping. - She is taking an gyjf-lsv-tmeaizs medi cation for her cough, Robitussin D [facility] Medical History (Updated 06/21/25 @ 09:25 by Bekah Huff PA-C) Acute viral syndrome TIA (transient ischemic attack) Paroxysmal atrial fibrillation CAD (coronary artery disease) HTN (hypertension) Morbid obesity Surgical History Hx of knee surgery Hx of thyroidectomy Hx of hysterectomy Hx of cardiac cath Family History Father No problems noted. Mother No problems noted. Social History Alcohol intake: current Alcohol intake frequency: holidays/special occasions only Patient Tobacco Use Status: Never used Tobacco Review of Systems Narrative Review of Systems - General: Reports subjective fever and diaphoresis. - Respiratory: Reports significant cough. Denies shortness of breath. - Gastrointestinal: Reports nausea, diarrhea, and melena. Reports poor oral intake. - Neurological: Reports near-syncope with ambulation. - HEENT: Denies ear pain. All systems reviewed and are unremarkable except as noted in HPI Physical Exam Exam Exam: Physical Exam General: Cooperative, healthy appearing, comfortable and no acute distress Orientation/consciousness: Patient oriented x3 Limitations: No limitations Head: Normal to inspection Ears: Hearing grossly normal bilaterally, external ears normal, EAC's w/cerumen bilaterally and TM's normal bilaterally Nose: Normal external nose present, Normal nares present and No nasal discharge present Face and sinus: Normal facial exam and sinuses nontender Mouth: Normal oral and palatal mucosa present and moist mucous membranes Throat: tonsils normal, no exudates, uvula midline, posterior oropharynx erythema Eyes: Appearance normal, both eyes and all related structures Neck: Normal visual inspection, full ROM Respiratory: Clear to auscultation bilaterally. Normal respiratory effort, able to speak in complete sentences, actively coughing, no respiratory distress, not tachypneic, no tripod positioning and no use of accessory muscles Cardiovascular: Regular rate and rhythm. Normal S1 and S2 Skin: No rashes or lesions noted Neuro: Patient oriented x3 Extremities: Normal to inspection and Yes no clubbing, cyanosis or edema Vital Signs: Last Vital Signs Pulse 80 06/21/25 09:01 Resp 18 06/21/25 09:01 BP 118/68 06/21/25 09:01 Pulse Ox 100 06/21/25 09:01 Oxygen Delivery Method Room Air 06/21/25 09:01 BMI result Body Mass Index 40.0 Assessment & Plan Assessment & Plan (1) Acute viral syndrome: Code(s): B34.9 - Viral infection, unspecified Plan Patient was informed and verbally consented to the use of an ambient scribe for clinic note documentation during this visit. - VSS, pt well appearing and PE unremarkable. - The patient's symptoms are consistent with a viral syndrome, likely influenza. - A nasopharyngeal swab will be collected to test for influenza, COVID-19, and RSV. - Antiviral medication is not recommended as symptom onset was five days ago, which is outside the window for effectiveness. - Advised supportive care including rest and staying hydrated with fluids such as Gatorade and water. - The patient was provided with a pamphlet outlining ER precautions and CDC recommendations. - Advised to avoid contact with others to prevent spreading the illness. - A cough suppressant will be prescribed to be taken before bed to aid with sleep. Nausea With Diarrhea And Melena - The patient is experiencing nausea, poor oral intake, and diarrhea with black stools which seem to have resolved. Educated pt that this is concerning for a potential GI bleed despite a negative history. Advised to monitor as this AM her solid stool was brown, if they go back to black, she should go to the ED to have a GI bleed ruled out. - An anti-nausea medication (Zofran) will be prescribed to be taken sublingually as needed to manage nausea and improve oral intake. - Recommended a bland (BRAT) diet including bananas, rice, applesauce, and toast to ease digestion. Orders: Orders SARS-CoV2/FLU/RSV Today R09.89 - Other specified symptoms and signs involving the circulatory and respiratory systems Medications: New ondansetron 4 mg PO Q8H PRN 10 tabs 0RF nausea and vomiting benzonatate DO NOT ALLOW CHILDREN TO HAVE ACCESS TO THIS MEDICATION IT IS DANGEROUS FOR CHILDREN. 200 mg PO BEDTIME PRN 10 caps 0RF cough Coding Level of Care Code New Pt Level 4 (59050) Diagnoses Acute viral syndrome B34.9
--- OUTSIDE RECORDS SUMMARY | 2025-06-21 09:20 | XMS_ITS | Patient Health Record ---
Author Organization [facility] Address [address] [place] [address] Care Team Providers Care Coater Associate Name Role Phone Angelica MILLER, Erick Primary Care Provider Guy Tovar Jr Unavailable Reason For Referral No Information Medications Medication SIG (Take, Route, Frequency, Duration) Notes Start Date End Date Status Suprep Bowel Prep 1 Solution as directed Orally 1; Duration: 1 dose 09/23/2012 Active Fish Oil Active Ocuvite Active Vitamin D Active Calcium Active Social History Social History Additional Details Category Social Info Options Details Miscellaneous: Marital status: Occupation: Home Problems Problem Type SNOMED Code ICD Code Onset Dates Problem Status W/U Status Risk Notes Problem Esophageal reflux (079607213) Esophageal reflux (530.81) Active confirmed Problem Colon cancer screening (909078004) Colon cancer screening (V76.51) Active confirmed Plan Of Treatment Future Test Test Name Order Date COLONOSCOPY 09/23/2012 Insurance Providers Payer Name Payer Address Payer Phone Subscriber Number Group Number Insured Name Patient Relationship to Insured Coverage Start Date Coverage End Date [facility] [address] [address] [place], [place] [id number] LUCIO COWART Self - patient is the insured Medical (General) History Medical History History ICD Code gerd glaucoma Surgical History Surgery Date(Month/Year) hysterectomy for abnormal uterine bleedi ng Left knee replacement Carpal tunnel
--- OUTSIDE RECORDS SUMMARY | 2025-06-21 09:20 | XMS_ITS | Patient Health Record ---
Author Organization [facility] Address [address] [place] [address] Care Team Providers Care Clinical Operations Manager Name Role Phone Darius Duran MD Primary Care Provider Ronda Morel Unavailable [phone] Allergies Allergen (clinical drug ingredient) Drug/Non Drug [...] Twice a day; Duration: 30 days Active levETIRAcetam 250 MG as directed Orally once a day Active Ammonium Lactate 12 % 1 application to affected area Externally to feet Twice a day; Duration: 30 days Not-Taking Eliquis 5 MG as directed Orally Not-Taking Aspirin 81 MG Orally Not-Anthony dos santos Sinus & Allergy PRN Not- Taking Levoxyl 75 MCG 1 tablet in the morning on an empty stomach Orally Once a day; Duration: 30 day(s) Not-Taking Vitamin D2 Active Ketorolac Tromethamine 0.5 % 1 drop into affected eye as needed Ophthalmic Four times a day Not-Taking Ciclopirox Olamine 0.77 % 1 application to affected area Externally Twice a day; Duration: 30 days Not-Taking dexAMETHasone Not-Anthony dos santos Propafenone HCl ER 225 MG Orally twice a day Not-Taking hydroCHLOROthiazide 25 MG Orally Active Latanoprost 0.005 % 1 drop into affected eye in the evening Ophthalmic Once a day Not-Taking Xarelto 20 MG 1 tablet with food Orally Once a day; Duration: 30 day(s) Active Vitamin D3 125 MCG (5000 UT) as directed Orally Not-Taking Levothyroxine Sodium 75 MCG 1 tablet in the morning on an empty stomach Orally Once a day; Duration: 30 day(s) Active Biotin Not-Taking Atorvastatin Calcium 80 MG 1 tablet Oral ly Once a day; Duration: 30 day(s) Active Albuterol Sulfate HFA 108 (90 Base) MCG/ACT 1 puff as needed Inhalation every 4 hrs Not-Taking Metoprolol Tartrate 25 MG 1 tablet with food Orally Twice a day; Duration: 30 day(s) Not-Taking Vitamin D3 Not-Takin g Warfarin Sodium 5 MG Orally Not-Taking Immunizations Vaccine Route Administration Date Status Comme nts Influenza Unknown 02/29/2024 Administered Influenza Unknown 03/30/2025 Administered COVID-19 Pfizer BioNTech Vaccine Unknown 10/28/2020 Administered First Dose: 10/28/20 Second Dose: 11/18/2020 Social History Tobacco Use: Social History Observation Description Date Details (start date - stop date) Never Smoker NA - NA Alcohol Screen Question Answer Notes Did you have a drink contain ing alcohol in the past year? Yes How often did you have a dri nk containing alcohol in the past year? Monthly or less (1 point) Points 1 Interpretation Negative Tobacco use other than smoking: Question Answer Notes Are you an other tobacco user? No Tobacco Control (Standard) Question Answer Notes Tobacco use: Nonsmoker AUDIT-C (Standard) Question Answer Notes Did you have a drink containing alcohol in the p ast year? No Points 0 Interpretation Negative Problems Problem Type SNOMED Code ICD Code Onset Dates Problem Status W/U Status Risk Notes Problem Bilateral atherosclerosis of arteries of lower limbs (disorder) (06703340055786824 ) Unspecified atherosclerosis of [place] arteries of extremities, bilateral legs (I70.203) Active confirmed Problem Bilateral atherosclerosis of arteries of lower limbs (disorder) (56547285747437916 ) Atherosclerosis of artery of both lower extremities (I70.203) Active confirmed Vital Signs Blood pressure diastolic 72 mm Hg 06/15/2025 Height 5ft in 06/15/2025 Blood pressure systolic 119 mm Hg 06/15/2025 Weight 212 lbs 06/15/2025 BMI 41.4 kg/m2 06/15/2025 Encounters Encounter Location Date Provider Diagnosis [facility] [place] [address] [place] [address] 08/27/2024 Ronda Perica Unspecified atherosclerosis of [place] arteries of extremities, bilateral legs I70.203 ; Xerosis of skin L85.3 ; Tinea unguium B35.1 ; Pain in right toe(s) M79.674 and Pain in left toe(s) M79.[address] [address] 11/26/2024 Ronda Perica Xerosis of skin L85. 3 ; Tinea unguium B35.1 ; Unspecified atherosclerosis of [place] arteries of extremities, bilateral legs I70.203 ; Pain in right toe(s) M79.674 and Pain in left toe(s) M79.[address] [address] 03/08/2025 Ronda Perica Xerosis of skin L85. 3 ; Tinea unguium B35.1 ; Unspecified atherosclerosis of [place] arteries of extremities, bilateral legs I70.203 ; Pain in right toe(s) M79.674 and Pain in left toe(s) M79.[address] [address] 06/15/2025 Ronda Perica Xerosis of skin L85. 3 ; Tinea unguium B35.1 ; Unspecified atherosclerosis of [place] arteries of extremities, bilateral legs I70.203 ; Pain in right toe(s) M79.674 and Pain in left toe(s) M79.675 Assessments Encounter Date Diagnosis (ICD Code) Assessment Notes Treatment Notes Treatment Clinical Notes Section Notes 08/27/2024 Unspecified atherosclerosis of [place] arteries of extremities, bilateral legs (ICD-10 - I70.203) 08/27/2024 Xerosis of skin (ICD-10 - L85.3) 11/26/2024 Tinea unguium (ICD-10 - B35.1) 11/26/2024 Xerosis of skin (ICD-10 - L85.3) 03/08/2025 Tinea unguium (ICD-10 - B35.1) 03/08/2025 Xerosis of skin (ICD-10 - L85.3) 06/15/2025 Xerosis of skin (ICD-10 - L85.3) 06/15/2025 Tinea unguium (ICD-10 - B35.1) 03/08/2025 Unspecified atherosclerosis of [place] arteries of extremities, bilateral legs (ICD-10 - I70.203) 11/26/2024 Unspecified atherosclerosis of [place] arteries of extremities, bilateral legs (ICD-10 - I70.203) 08/27/2024 Tinea unguium (ICD-10 - B35.1) 08/27/2024 Pain in right toe(s) (ICD-10 - M79.674) 06/15/2025 Unspecified atherosclerosis of [place] arteries of extremities, bilateral legs (ICD-10 - I70.203) 11/26/2024 Pain in right toe(s) (ICD-10 - M79.674) 03/08/2025 Pain in right toe(s) (ICD-10 - M79.674) 06/15/2025 Pain in right toe(s) (ICD-10 - M79.674) 11/26/2024 Pain in left toe(s) (ICD-10 - M79.675) 03/08/2025 Pain in left toe(s) (ICD-10 - M79.675) 08/27/2024 Pain in left toe(s) (ICD-10 - M79.675) 06/15/2025 Pain in left toe(s) (ICD-10 - M79.675) Plan Of Treatment Pending Test Test Name Order Date [id number] NAIL, 6 OR MORE 12/12/2017 [id number] NAIL, 6 OR MORE 03/06/2018 [id number] NAIL, 6 OR MORE 05/13/2018 55583-[id number] SKIN LESIONS, OVER 4 12/13/19 18 [id number] SKIN LESIONS, OVER 4 05/13/20 18 [id number] SKIN LESIONS, OVER 4 03/06/20 18 Next Appt Details Provider Name:Ronda hill, 09/06/2025 03:15:00 PM, [address] [place] [address], [phone], Insurance Providers Payer Name Payer Address Payer Phone Subscriber Number Group Number Insured Name Patient Relationship to Insured Coverage Start Date Coverage End Date [employer] [place] [employer]vantage One [facility] [address] [id number] Ayse Young Self - patient is the insured 5 Medical (General) History Medical History History ICD [...] History Reason Date(Month/Year) [facility]- Heart attack 01/2019 [facility] and then after 2 day moved to [facility], Heart attack 01/2019 [facility] ER - rectal bleeding/hemmoroid 9
== END 2025-06-21 09:43 | disposition home or self-care (01) ==
PROVIDERS: Visit Provider Physician Assistant
DX: B34.9 Viral infection, unspecified (principal)